=== PATIENT | female | born 1960 | race Caucasian/White ===

== ENCOUNTER 2019-03-20 14:28 | Inpatient (IN) ==
--- NOTE | 2019-03-20 15:33 | Emergency Department Note ---
Disposition Clinical Impression: Weakness Disposition: Admitted As Inpatient Condition: Fair Time of Disposition: 00:34 General Adult HPI - General Chief complaint: ED Abdominal Pain Stated complaint: Failure to thrive Time Seen by Provider: 03/20/19 15:14 Source: patient Limitations: no limitations - History of Present Illness Pain Scale: 7 - Related Data Home Medications Medication Instructions Recorded Confirmed Ondansetron HCl [Zofran] 8 mg PO Q6HR PRN 01/31/16 03/20/19 Ascorbic Acid [Vitamin C] 500 mg PO DAILY 12/21/18 12/21/18 Atorvastatin Calcium [Lipitor] 20 mg PO QPM 12/21/18 12/21/18 Budesonide/Formoterol 80/4.5 2 puff IH BID 12/21/18 03/20/19 [Symbicort 80/4.5] Calcium/Vit B12/FA/Pyridoxine 1 tab PO DAILY 12/21/18 03/20/19 [Folic Acid-Vit B6-Vit B12 Tab] Cholecalciferol (Vitamin D3) 2,000 unit PO DAILY 12/21/18 03/20/19 [Vitamin D3] Dicyclomine [Bentyl] 20 mg PO QID 12/21/18 12/21/18 Divalproex (12 HR) [Depakote (12 1,500 mg PO HS 12/21/18 03/20/19 HR)] Ferrous Sulfate 325 mg PO DAILY 12/21/18 03/20/19 Fluticasone Propionate Nasal 1 spray NS DAILY 12/21/18 03/20/19 [Flonase] Furosemide [Lasix] 20 mg PO DAILY 12/21/18 03/20/19 Gabapentin [Neurontin] 300 mg PO QAM 12/21/18 03/20/19 Gabapentin [Neurontin] 400 mg PO HS 12/21/18 03/20/19 Gemfibrozil 600 mg PO BID 12/21/18 03/20/19 Insulin LISPRO [Humalog Kwikpen 0 - 10 unit SQ TID 12/21/18 03/20/19 U-100] Linagliptin [Tradjenta] 5 mg PO DAILY 12/21/18 03/20/19 Metformin HCl 1,000 mg PO BID 12/21/18 03/20/19 Montelukast [Singulair] 10 mg PO DAILY 12/21/18 03/20/19 Pantoprazole Sodium 40 mg PO BID 12/21/18 03/20/19 Potassium Chloride [Klor-Con 10] 10 meq PO DAILY 12/21/18 03/20/19 Ropinirole HCl [Requip] 2 mg PO HS 12/21/18 03/20/19 Tramadol HCl [Ultram] 50 mg PO QID PRN 12/21/18 03/20/19 diazePAM [Valium] 5 mg PO TID 12/21/18 03/20/19 Allergies Allergy/AdvReac Type Severity Reaction Status Date / Time lorazepam [From Ativan] AdvReac Agitated Verified 12/21/18 09:21 Past Medical History - Past Medical History Medical history: Reports: CHF, COPD, diabetes, hypertension Surgical history: Reports: , orthopedic, other, other Psychiatric history: Reports: anxiety, bipolar, depression - Social History Smoking Status: Current every day smoker Smokeless Tobacco Status: No Alcohol use: Reports: none Drug use: Reports: none Physical Exam - General Limitations: no limitations General appearance: alert, in no apparent distress Course Vital Signs Temperature 97.1 F L 03/20/19 14:53 Pulse Rate 74 03/20/19 14:53 Respiratory Rate 18 03/20/19 14:53 Blood Pressure 100/69 03/20/19 14:53 O2 Sat by Pulse Oximetry 100 03/20/19 14:53 Temperature 97.5 F L 03/20/19 23:08 Pulse Rate 75 03/20/19 23:08 Respiratory Rate 16 03/20/19 23:08 Blood Pressure 110/70 03/20/19 23:08 O2 Sat by Pulse Oximetry 95 03/20/19 23:08 Oxygen Delivery Oxygen Delivery Room Air Medical Decision Making - Lab Data Result diagrams: 03/20/19 16:00 03/20/19 16:00 Lab Results 03/20/19 03/20/19 03/20/19 Range/Units 16:00 16:00 16:00 WBC 6.4 (4.3-11.1) K/mcL RBC 3.13 L (3.82-4.97) M/mcL Hgb 10.7 L (11.5-15.4) g/dL Hct 31.8 L (35.3-44.9) % MCV 101.6 H (83.0-100.0) fL MCH 34.2 H (28.0-33.3) pg MCHC 33.6 (31.6-35.5) g/dL RDW 14.2 (11.5-14.5) % Plt Count 222 (140-400) K/mcL MPV 10.9 (9.4-12.4) fL Reticulocyte # (0.05-0.10) M/mcL Immature Gran % 0.5 (0-4) % Seg Neutrophils % 57.7 % Lymphocytes % 30.8 % Monocytes % 10.3 % Eosinophils % 0.5 % Basophils % 0.2 % Neutrophils # 3.7 (1.6-8.9) K/mcL Lymphocytes # 2.0 (0.6-4.6) K/mcL Monocytes # 0.7 (0.0-1.3) K/mcL Eosinophils # 0.0 (0.0-0.6) K/mcL Basophils # 0.0 (0.0-0.2) K/mcL Smear Path Review Percent Retic (1.6-2.8) % Immature Retic Fraction (11.0-38.0) % Retic Hgb Equivalent (28.61-36.33) pg Sodium 133 L (136-145) mEq/L Potassium 3.7 (3.5-5.1) mEq/L Chloride 90 L (98-107) mEq/L Carbon Dioxide 30 H (23-29) mEq/L BUN 28 H (8-23) mg/dL Creatinine 1.08 (0.60-1.20) mg/dL Est GFR ( Amer) > 60 (> 60) Est GFR (Non-Af Amer) 52 L (> 60) BUN/Creatinine Ratio 26 (6-26) Glucose 109 H (70-105) mg/dL Est Mean Plasma Glucose mg/dl Hemoglobin A1c ( - 5.6) % Calculated Osmolality 282 (280-300) Lactic Acid 5.4 H* (0.5-2.2) mmol/L Calcium 9.1 (8.6-10.3) mg/dL Magnesium 1.5 L (1.6-2.6) mg/dL Total Bilirubin 0.3 (0.3-1.0) mg/dL AST 39 (13-39) Units/L ALT 22 (7-52) Units/L Alkaline Phosphatase 60 (34-104) Units/L Troponin I (< 0.04) ng/mL Serum Total Protein 6.2 L (6.4-8.9) g/dL Albumin 3.5 (3.5-5.7) g/dL Globulin 2.7 (2.4-3.5) g/dL Albumin/Globulin Ratio 1.3 (1.1-2.2) Urine Color (Yellow) Urine Clarity (Clear) Urine pH (5.0-8.0) pH Units Ur Specific [place] (1.010-1.025) Urine Protein (Neg-Trace) mg/dL Urine Glucose (UA) (Normal) mg/dL Urine Ketones (Negative) mg/dL Urine Blood (Negative) Urine Nitrite (Negative) Urine Bilirubin (Negative) Urine Urobilinogen (Normal) mg/dL Ur Leukocyte Esterase (Negative) Urine Microscopic RBC (0-3) per hpf Urine Microscopic WBC (0-3) per hpf Ur Squamous Epith Cells (None-Few) per lpf Urine Bacteria (None-Few) per hpf Hyaline Casts (None-Few) per lpf Valproic Acid (50-100) mcg/mL 03/20/19 03/20/19 03/20/19 Range/Units 16:00 16:00 16:10 WBC (4.3-11.1) K/mcL RBC (3.82-4.97) M/mcL Hgb (11.5-15.4) g/dL Hct (35.3-44.9) % MCV (83.0-100.0) fL MCH (28.0-33.3) pg MCHC (31.6-35.5) g/dL RDW (11.5-14.5) % Plt Count (140-400) K/mcL MPV (9.4-12.4) fL Reticulocyte # 0.07 (0.05-0.10) M/mcL Immature Gran % (0-4) % Seg Neutrophils % % Lymphocytes % % Monocytes % % Eosinophils % % Basophils % % Neutrophils # (1.6-8.9) K/mcL Lymphocytes # (0.6-4.6) K/mcL Monocytes # (0.0-1.3) K/mcL Eosinophils # (0.0-0.6) K/mcL Basophils # (0.0-0.2) K/mcL Smear Path Review See Below Percent Retic 2.3 (1.6-2.8) % Immature Retic Fraction 14.1 (11.0-38.0) % Retic Hgb Equivalent 37.9 H (28.61-36.33) pg Sodium (136-145) mEq/L Potassium (3.5-5.1) mEq/L Chloride (98-107) mEq/L Carbon Dioxide (23-29) mEq/L BUN (8-23) mg/dL Creatinine (0.60-1.20) mg/dL Est GFR ( Amer) (> 60) Est GFR (Non-Af Amer) (> 60) BUN/Creatinine Ratio (6-26) Glucose (70-105) mg/dL Est Mean Plasma Glucose mg/dl Hemoglobin A1c ( - 5.6) % Calculated Osmolality (280-300) Lactic Acid (0.5-2.2) mmol/L Calcium (8.6-10.3) mg/dL Magnesium (1.6-2.6) mg/dL Total Bilirubin (0.3-1.0) mg/dL AST (13-39) Units/L ALT (7-52) Units/L Alkaline Phosphatase (34-104) Units/L Troponin I < 0.03 (< 0.04) ng/mL Serum Total Protein (6.4-8.9) g/dL Albumin (3.5-5.7) g/dL Globulin (2.4-3.5) g/dL Albumin/Globulin Ratio (1.1-2.2) Urine Color (Yellow) Urine Clarity (Clear) Urine pH (5.0-8.0) pH Units Ur Specific [place] (1.010-1.025) Urine Protein (Neg-Trace) mg/dL Urine Glucose (UA) (Normal) mg/dL Urine Ketones (Negative) mg/dL Urine Blood (Negative) Urine Nitrite (Negative) Urine Bilirubin (Negative) Urine Urobilinogen (Normal) mg/dL Ur Leukocyte Esterase (Negative) Urine Microscopic RBC (0-3) per hpf Urine Microscopic WBC (0-3) per hpf Ur Squamous Epith Cells (None-Few) per lpf Urine Bacteria (None-Few) per hpf Hyaline Casts (None-Few) per lpf Valproic Acid 41 L (50-100) mcg/mL 03/20/19 03/20/19 03/20/19 Range/Units 16:10 17:11 18:42 WBC (4.3-11.1) K/mcL RBC (3.82-4.97) M/mcL Hgb (11.5-15.4) g/dL Hct (35.3-44.9) % MCV (83.0-100.0) fL MCH (28.0-33.3) pg MCHC (31.6-35.5) g/dL RDW (11.5-14.5) % Plt Count (140-400) K/mcL MPV (9.4-12.4) fL Reticulocyte # (0.05-0.10) M/mcL Immature Gran % (0-4) % Seg Neutrophils % % Lymphocytes % % Monocytes % % Eosinophils % % Basophils % % Neutrophils # (1.6-8.9) K/mcL Lymphocytes # (0.6-4.6) K/mcL Monocytes # (0.0-1.3) K/mcL Eosinophils # (0.0-0.6) K/mcL Basophils # (0.0-0.2) K/mcL Smear Path Review Percent Retic (1.6-2.8) % Immature Retic Fraction (11.0-38.0) % Retic Hgb Equivalent (28.61-36.33) pg Sodium (136-145) mEq/L Potassium (3.5-5.1) mEq/L Chloride (98-107) mEq/L Carbon Dioxide (23-29) mEq/L BUN (8-23) mg/dL Creatinine (0.60-1.20) mg/dL Est GFR ( Amer) (> 60) Est GFR (Non-Af Amer) (> 60) BUN/Creatinine Ratio (6-26) Glucose (70-105) mg/dL Est Mean Plasma Glucose 108 mg/dl Hemoglobin A1c 5.4 ( - 5.6) % Calculated Osmolality (280-300) Lactic Acid 4.0 H* (0.5-2.2) mmol/L Calcium (8.6-10.3) mg/dL Magnesium (1.6-2.6) mg/dL Total Bilirubin (0.3-1.0) mg/dL AST (13-39) Units/L ALT (7-52) Units/L Alkaline Phosphatase (34-104) Units/L Troponin I (< 0.04) ng/mL Serum Total Protein (6.4-8.9) g/dL Albumin (3.5-5.7) g/dL Globulin (2.4-3.5) g/dL Albumin/Globulin Ratio (1.1-2.2) Urine Color Yellow (Yellow) Urine Clarity Clear (Clear) Urine pH 6.0 (5.0-8.0) pH Units Ur Specific [place] 1.013 (1.010-1.025) Urine Protein Negative (Neg-Trace) mg/dL Urine Glucose (UA) Normal (Normal) mg/dL Urine Ketones Negative (Negative) mg/dL Urine Blood Negative (Negative) Urine Nitrite Negative (Negative) Urine Bilirubin Negative (Negative) Urine Urobilinogen Normal (Normal) mg/dL Ur Leukocyte Esterase Small H (Negative) Urine Microscopic RBC 0-3 (0-3) per hpf Urine Microscopic WBC 5-15 H (0-3) per hpf Ur Squamous Epith Cells Many H (None-Few) per lpf Urine Bacteria Few (None-Few) per hpf Hyaline Casts None Seen (None-Few) per lpf Valproic Acid (50-100) mcg/mL Attestation Statement - Attestation Attestation: I reviewed the residents documentation and agree with the residents assessment and plan of care. I have personally had face to face time with the patient. (Brief History, Brief Exam, and MDM) I personally supervised and was present for the resendez/critical portions of the following procedures completed by the resident: (add procedures performed here). [id number] time provided Patient arrives in the care of her family member with decreased oral intake. Patient is somewhat thin and frail appearing on exam. I attest to supervising the resident physician's interpretation of the ECG.
[2019-03-20] MEDS ORDERED: Ipratropium/Albuterol Neb 3 ML IH ONE (15:42)
[2019-03-20] MEDS ORDERED: 0.9 % Sodium Chloride 1,000 ML IVC ONE (15:43)
--- NOTE | 2019-03-20 16:04 | Emergency Department Note ---
Disposition Clinical Impression: Weakness Disposition: Admitted As Inpatient Condition: Fair Forms: ED Satisfaction Letter, Work/School Release Time of Disposition: 18:00 Abdominal Pain HPI - General Chief Complaint: ED Abdominal Pain Stated Complaint: Failure to thrive Time Seen by Provider: 03/20/19 15:14 Source: patient, family Mode of arrival: ambulatory Limitations: no limitations Nursing Notes Reviewed: Yes Vital Signs Reviewed: Yes - History of Present Illness HPI Narrative: 59 yo woman brought to ED 03/20/19 by daughter from GI appointment for evaluation of acute diarrhea, decreased PO intake, weakness, and ongoing weight loss. Patient says she tries to eat "but just can't, nothing is right." Weight loss estimated at 11 lbs over past month. Yesterday she was also found on the floor by her home nurse; patient said she did hit her head, but is unable to verbalize how she felt at the time of the fall or why she fell. She has a history of falls but often refuses to seek medical care afterwards. Daughter has photo of patient with black eye, cheekbone bruising on the right side of face from another fall. She endorses 7/10 abdominal pain and SOB, denies CP. Patient recently finished course of Keflex following foot surgery "to remove a bone", per daughter, and has an unresolved wound on the ball of her left foot. Patient states it hurts to put weight on that foot. Daughter believes patient has been able to take her medications. PMH significant for aphasisa 2/2 possible stroke, DM, BPD, schizophrenia. She takes Depakote. Patient is not on anticoagulation. Allergies include ativan. Social history significant for heavy smoking. She was on O2 at home, but hasn't used it for awhile. She does take breathing treatments at home. Pain Scale: 7 - Related Data Home Medications Medication Instructions Recorded Confirmed Ondansetron HCl [Zofran] 8 mg PO TID PRN 01/31/16 12/21/18 Ascorbic Acid [Vitamin C] 500 mg PO DAILY 12/21/18 12/21/18 Atorvastatin Calcium [Lipitor] 20 mg PO QPM 12/21/18 12/21/18 Budesonide/Formoterol 80/4.5 2 puff IH BID 12/21/18 12/21/18 [Symbicort 80/4.5] Calcium/Vit B12/FA/Pyridoxine 1 tab PO DAILY 12/21/18 12/21/18 [Folic Acid-Vit B6-Vit B12 Tab] Cholecalciferol (Vitamin D3) 2,000 unit PO DAILY 12/21/18 12/21/18 [Vitamin D3] Dicyclomine [Bentyl] 20 mg PO QID 12/21/18 12/21/18 Divalproex (12 HR) [Depakote (12 1,500 mg PO HS 12/21/18 12/21/18 HR)] Ferrous Sulfate 325 mg PO DAILY 12/21/18 12/21/18 Fluticasone Propionate Nasal 1 spray NS DAILY 12/21/18 12/21/18 [Flonase] Furosemide [Lasix] 20 mg PO DAILY 12/21/18 12/21/18 Gabapentin [Neurontin] 300 mg PO QAM 12/21/18 12/21/18 Gabapentin [Neurontin] 400 mg PO 2000 12/21/18 12/21/18 Gemfibrozil 600 mg PO BID 12/21/18 12/21/18 Insulin LISPRO [Humalog Kwikpen 0 - 10 unit SQ TID 12/21/18 12/21/18 U-100] Linagliptin [Tradjenta] 5 mg PO DAILY 12/21/18 12/21/18 Metformin HCl 1,000 mg PO BID 12/21/18 12/21/18 Montelukast [Singulair] 10 mg PO DAILY 12/21/18 12/21/18 Pantoprazole Sodium 40 mg PO BID 12/21/18 12/21/18 Potassium Chloride [Klor-Con 10] 10 meq PO DAILY 12/21/18 12/21/18 Ropinirole HCl [Requip] 2 mg PO HS 12/21/18 12/21/18 Tramadol HCl [Ultram] 50 mg PO QID PRN 12/21/18 12/21/18 diazePAM [Valium] 5 mg PO TID PRN 12/21/18 12/21/18 Allergies Allergy/AdvReac Type Severity Reaction Status Date / Time lorazepam [From Ativan] AdvReac Agitated Verified 12/21/18 09:21 All systems ED: reviewed and negative except as stated. Respiratory: Reports: dyspnea Gastrointestinal: Reports: abdominal pain, diarrhea Musculoskeletal: Reports: other (Pain and swelling in left foot) Integumentary: Reports: lesions (Wound, ball of left foot) Abdominal Pain PMH - Past Medical History Medical history: Reports: CHF, COPD, diabetes, hypertension Female Surgical History: Reports: , cholecystectomy, orthopedic, other Psychiatric history: Reports: anxiety, bipolar, depression - Social History Smoking status: Current every day smoker Alcohol use: Reports: none Drug use: Reports: none Physical Exam PE Gen: AOx3, NAD HEENT: No lymphadenopathy, no erythema, no edema. Pupils equal and reactive. Cardio: Regular rate and rhythm, no murmur, no peripheral edema, good perfusion to all extremities, no cyanosis Resp: +coarse breath sounds, wheezing on expiration, equal BS bilaterally GI: +mild distention, +mild tenderness to palpation of abdomen diffusely. No ecchymoses, no rash. : +suprapubic tenderness and distention on palpation MSK: +erythema, edema extending along left castaneda and foot with tenderness to palpation; +wound approximately 1" in diameter w/ serous discharge under 2nd metatarsal; Normal ROM Neuro: CNI-XII intact, strength WNL, decreased sensation BLE Psych: Appropriate affect - General Limitations: no limitations General appearance: alert, in no apparent distress Course Course Narrative: Temp 97.1, remaining VS WNL. Patient given duoneb to ease breathing and 25mcg fentanyl for pain relief. Concern for C. diff colitis given recent surgery and antibiotics; also sepsis, UTI, TIA, malignancy. Ordered CBC, CMP, UA, EKG, troponin, lactic acid, Mg, valproic acid, CT abd/pelvis, CT head to initiate workup. - Reevaluation(s) Reevaluation #1: Patient asleep, VS stable and WNL. Time: 18:15 Vital Signs Temperature 97.1 F L 03/20/19 14:53 Pulse Rate 74 03/20/19 14:53 Respiratory Rate 18 03/20/19 14:53 Blood Pressure 100/69 03/20/19 14:53 O2 Sat by Pulse Oximetry 100 03/20/19 14:53 Temperature 97.1 F L 03/20/19 14:53 Pulse Rate 67 03/20/19 19:07 Respiratory Rate 18 03/20/19 16:02 Blood Pressure 115/72 03/20/19 19:07 O2 Sat by Pulse Oximetry 96 03/20/19 19:07 Oxygen Delivery Oxygen Delivery Room Air Abdominal Pain - MDM Narrative Medical decision making narrative: CBC, UA, CT with no findings suggested of acute emergent process such as sepsis, bowel obstruction or toxic megacolon. Labs consistent with dehydration, lack of nutrition. Hospitalist requested repeat lactic acid, given initial elevated value with sample taken in close proximity to patient receiving Duoneb treatment. Repeat lactate still high at 4; patient was unable to walk on trial of ambulation. Social work recommends admission. - Medical Records Medical records reviewed: Yes I reviewed the patient's medical records. - Lab Data Lab results reviewed: Yes I reviewed the patient's lab results. Result diagrams: 03/20/19 16:00 03/20/19 16:00 Lab Results 03/20/19 03/20/19 03/20/19 Range/Units 16:00 16:00 16:00 WBC 6.4 (4.3-11.1) K/mcL RBC 3.13 L (3.82-4.97) M/mcL Hgb 10.7 L (11.5-15.4) g/dL Hct 31.8 L (35.3-44.9) % MCV 101.6 H (83.0-100.0) fL MCH 34.2 H (28.0-33.3) pg MCHC 33.6 (31.6-35.5) g/dL RDW 14.2 (11.5-14.5) % Plt Count 222 (140-400) K/mcL MPV 10.9 (9.4-12.4) fL Immature Gran % 0.5 (0-4) % Seg Neutrophils % 57.7 % Lymphocytes % 30.8 % Monocytes % 10.3 % Eosinophils % 0.5 % Basophils % 0.2 % Neutrophils # 3.7 (1.6-8.9) K/mcL Lymphocytes # 2.0 (0.6-4.6) K/mcL Monocytes # 0.7 (0.0-1.3) K/mcL Eosinophils # 0.0 (0.0-0.6) K/mcL Basophils # 0.0 (0.0-0.2) K/mcL Sodium 133 L (136-145) mEq/L Potassium 3.7 (3.5-5.1) mEq/L Chloride 90 L (98-107) mEq/L Carbon Dioxide 30 H (23-29) mEq/L BUN 28 H (8-23) mg/dL Creatinine 1.08 (0.60-1.20) mg/dL Est GFR ( Amer) > 60 (> 60) Est GFR (Non-Af Amer) 52 L (> 60) BUN/Creatinine Ratio 26 (6-26) Glucose 109 H (70-105) mg/dL Calculated Osmolality 282 (280-300) Lactic Acid 5.4 H* (0.5-2.2) mmol/L Calcium 9.1 (8.6-10.3) mg/dL Magnesium 1.5 L (1.6-2.6) mg/dL Total Bilirubin 0.3 (0.3-1.0) mg/dL AST 39 (13-39) Units/L ALT 22 (7-52) Units/L Alkaline Phosphatase 60 (34-104) Units/L Troponin I (< 0.04) ng/mL Serum Total Protein 6.2 L (6.4-8.9) g/dL Albumin 3.5 (3.5-5.7) g/dL Globulin 2.7 (2.4-3.5) g/dL Albumin/Globulin Ratio 1.3 (1.1-2.2) Urine Color (Yellow) Urine Clarity (Clear) Urine pH (5.0-8.0) pH Units Ur Specific [place] (1.010-1.025) Urine Protein (Neg-Trace) mg/dL Urine Glucose (UA) (Normal) mg/dL Urine Ketones (Negative) mg/dL Urine Blood (Negative) Urine Nitrite (Negative) Urine Bilirubin (Negative) Urine Urobilinogen (Normal) mg/dL Ur Leukocyte Esterase (Negative) Urine Microscopic RBC (0-3) per hpf Urine Microscopic WBC (0-3) per hpf Ur Squamous Epith Cells (None-Few) per lpf Urine Bacteria (None-Few) per hpf Hyaline Casts (None-Few) per lpf Valproic Acid (50-100) mcg/mL 03/20/19 03/20/19 03/20/19 Range/Units 16:00 16:00 17:11 WBC (4.3-11.1) K/mcL RBC (3.82-4.97) M/mcL Hgb (11.5-15.4) g/dL Hct (35.3-44.9) % MCV (83.0-100.0) fL MCH (28.0-33.3) pg MCHC (31.6-35.5) g/dL RDW (11.5-14.5) % Plt Count (140-400) K/mcL MPV (9.4-12.4) fL Immature Gran % (0-4) % Seg Neutrophils % % Lymphocytes % % Monocytes % % Eosinophils % % Basophils % % Neutrophils # (1.6-8.9) K/mcL Lymphocytes # (0.6-4.6) K/mcL Monocytes # (0.0-1.3) K/mcL Eosinophils # (0.0-0.6) K/mcL Basophils # (0.0-0.2) K/mcL Sodium (136-145) mEq/L Potassium (3.5-5.1) mEq/L Chloride (98-107) mEq/L Carbon Dioxide (23-29) mEq/L BUN (8-23) mg/dL Creatinine (0.60-1.20) mg/dL Est GFR ( Amer) (> 60) Est GFR (Non-Af Amer) (> 60) BUN/Creatinine Ratio (6-26) Glucose (70-105) mg/dL Calculated Osmolality (280-300) Lactic Acid (0.5-2.2) mmol/L Calcium (8.6-10.3) mg/dL Magnesium (1.6-2.6) mg/dL Total Bilirubin (0.3-1.0) mg/dL AST (13-39) Units/L ALT (7-52) Units/L Alkaline Phosphatase (34-104) Units/L Troponin I < 0.03 (< 0.04) ng/mL Serum Total Protein (6.4-8.9) g/dL Albumin (3.5-5.7) g/dL Globulin (2.4-3.5) g/dL Albumin/Globulin Ratio (1.1-2.2) Urine Color Yellow (Yellow) Urine Clarity Clear (Clear) Urine pH 6.0 (5.0-8.0) pH Units Ur Specific [place] 1.013 (1.010-1.025) Urine Protein Negative (Neg-Trace) mg/dL Urine Glucose (UA) Normal (Normal) mg/dL Urine Ketones Negative (Negative) mg/dL Urine Blood Negative (Negative) Urine Nitrite Negative (Negative) Urine Bilirubin Negative (Negative) Urine Urobilinogen Normal (Normal) mg/dL Ur Leukocyte Esterase Small H (Negative) Urine Microscopic RBC 0-3 (0-3) per hpf Urine Microscopic WBC 5-15 H (0-3) per hpf Ur Squamous Epith Cells Many H (None-Few) per lpf Urine Bacteria Few (None-Few) per hpf Hyaline Casts None Seen (None-Few) per lpf Valproic Acid 41 L (50-100) mcg/mL 03/20/19 Range/Units 18:42 WBC (4.3-11.1) K/mcL RBC (3.82-4.97) M/mcL Hgb (11.5-15.4) g/dL Hct (35.3-44.9) % MCV (83.0-100.0) fL MCH (28.0-33.3) pg MCHC (31.6-35.5) g/dL RDW (11.5-14.5) % Plt Count (140-400) K/mcL MPV (9.4-12.4) fL Immature Gran % (0-4) % Seg Neutrophils % % Lymphocytes % % Monocytes % % Eosinophils % % Basophils % % Neutrophils # (1.6-8.9) K/mcL Lymphocytes # (0.6-4.6) K/mcL Monocytes # (0.0-1.3) K/mcL Eosinophils # (0.0-0.6) K/mcL Basophils # (0.0-0.2) K/mcL Sodium (136-145) mEq/L Potassium (3.5-5.1) mEq/L Chloride (98-107) mEq/L Carbon Dioxide (23-29) mEq/L BUN (8-23) mg/dL Creatinine (0.60-1.20) mg/dL Est GFR ( Amer) (> 60) Est GFR (Non-Af Amer) (> 60) BUN/Creatinine Ratio (6-26) Glucose (70-105) mg/dL Calculated Osmolality (280-300) Lactic Acid 4.0 H* (0.5-2.2) mmol/L Calcium (8.6-10.3) mg/dL Magnesium (1.6-2.6) mg/dL Total Bilirubin (0.3-1.0) mg/dL AST (13-39) Units/L ALT (7-52) Units/L Alkaline Phosphatase (34-104) Units/L Troponin I (< 0.04) ng/mL Serum Total Protein (6.4-8.9) g/dL Albumin (3.5-5.7) g/dL Globulin (2.4-3.5) g/dL Albumin/Globulin Ratio (1.1-2.2) Urine Color (Yellow) Urine Clarity (Clear) Urine pH (5.0-8.0) pH Units Ur Specific [place] (1.010-1.025) Urine Protein (Neg-Trace) mg/dL Urine Glucose (UA) (Normal) mg/dL Urine Ketones (Negative) mg/dL Urine Blood (Negative) Urine Nitrite (Negative) Urine Bilirubin (Negative) Urine Urobilinogen (Normal) mg/dL Ur Leukocyte Esterase (Negative) Urine Microscopic RBC (0-3) per hpf Urine Microscopic WBC (0-3) per hpf Ur Squamous Epith Cells (None-Few) per lpf Urine Bacteria (None-Few) per hpf Hyaline Casts (None-Few) per lpf Valproic Acid (50-100) mcg/mL - Radiology Data Radiology results reviewed: Yes I reviewed the patient's radiology results. Abdomen/Pelvis CT 03/20/19 15:43 IMPRESSION: Moderate size hiatal hernia with moderate internal soft tissue density. While this may be due to hiatal hernia with collapse, the possibility of a mucosal lesion of the stomach or esophagus within the hernia should be considered. No evidence of colitis on noncontrast imaging, but with moderate stool throughout the colon. D/ / Toan Castillo MD / Toan Castillo MD Interpreting Provider: Toan Castillo MD Head CT 03/20/19 15:43 IMPRESSION: No acute intracranial abnormality. Mild atrophy. D/ / Toan Castillo MD / Toan Castillo MD Interpreting Provider: Toan Castillo MD - EKG Data EKG attestation: Yes I reviewed and interpreted this EKG. EKG shows normal: sinus rhythm Rate: normal Rhythm: NSR Darling/QRS: normal When compared to previous EKG there are: no significant changes (12/14/18 EKG) Interpretation: no acute changes, normal EKG
[2019-03-20] MEDS ORDERED: *HR* FentaNYL (PF) 100 MCG/2 ML VIAL IVP ONE (16:07)
[2019-03-20 16:20] LABS: Basophils % 0.2 %; Eosinophils % 0.5 %; Hematocrit 31.8 % (35.3-44.9); Hemoglobin 10.7 g/dL (11.5-15.4); Immature Granulocytes % 0.5 % (0-4); Lymphocytes % 30.8 %; Mean Corpuscular HGB Conc 33.6 g/dL (31.6-35.5); Mean Corpuscular Hemoglobin 34.2 pg (28.0-33.3); Mean Corpuscular Volume 101.6 fL (83.0-100.0); Mean Platelet Volume 10.9 fL (9.4-12.4); Monocytes # 0.7 K/mcL (0.0-1.3); Monocytes % 10.3 %; Neutrophils # 3.7 K/mcL (1.6-8.9); Platelet Count 222 K/mcL (140-400); Red Blood Count 3.13 M/mcL (3.82-4.97); Red Cell Distribution Width 14.2 % (11.5-14.5); Segmented Neutrophils % 57.7 %; White Blood Count 6.4 K/mcL (4.3-11.1)
[2019-03-20 16:38] LABS: Alanine Aminotransferase 22 Units/L (7-52); Albumin 3.5 g/dL (3.5-5.7); Albumin/Globulin Ratio 1.3 (1.1-2.2); Alkaline Phosphatase 60 Units/L (34-104); Aspartate Amino Transferase 39 Units/L (13-39); BUN/Creatinine Ratio 26 (6-26); Bilirubin,Total 0.3 mg/dL (0.3-1.0); Blood Urea Nitrogen 28 mg/dL (8-23); Calcium 9.1 mg/dL (8.6-10.3); Carbon Dioxide 30 mEq/L (23-29); Chloride 90 mEq/L (98-107); Globulin 2.7 g/dL (2.4-3.5); Glucose 109 mg/dL (70-105); Magnesium 1.5 mg/dL (1.6-2.6); Osmolality,Calculated 282 (280-300); Potassium 3.7 mEq/L (3.5-5.1); Sodium 133 mEq/L (136-145); Total Protein 6.2 g/dL (6.4-8.9); eGFR For African Americans > 60 (> 60); eGFR For Non-African Americans 52 (> 60)
[2019-03-20 17:38] LABS: Bilirubin,Urine Negative (Negative); Blood,Urine Negative (Negative); Clarity,Urine Clear (Clear); Color,Urine Yellow (Yellow); Glucose,Urine (UA) Normal (Normal); Ketones,Urine Negative (Negative); Leukocyte Esterase,Urine Small (Negative); Nitrite,Urine Negative (Negative); Protein,Urine Negative (Neg-Trace); Specific Gravity,Urine 1.013 (1.010-1.025); Urobilinogen,Urine Normal (Normal)
[2019-03-20 17:42] LABS: Bacteria,Urine Few per hpf (None-Few); Hyaline Casts,Urine None Seen per lpf (None-Few); Squamous Epithelial Cell,Urine Many per lpf (None-Few)
[2019-03-20 18:02] LABS: RBC,Urine 0-3 per hpf (0-3)
[2019-03-20] MEDS ORDERED: Naloxone 0.4 MG/ML INJ IVP PRN (19:46)
[2019-03-20] MEDS ORDERED: Ondansetron ODT 4 MG TAB.RAPDIS SL PRN (19:46)
[2019-03-20] MEDS ORDERED: D5% in Water 1,000 ML IVC PRN (20:27)
[2019-03-20] MEDS ORDERED: *HR* Dextrose 50 % in Water (Syg) 50 ML SYRINGE IVP PRN (20:27)
[2019-03-20] MEDS ORDERED: diazePAM 5 MG TABLET PO PRN (20:27)
[2019-03-20] MEDS ORDERED: Dextrose Gel 15 GM/37.5 ML TUBE PO PRN ×2 (20:27)
[2019-03-20] MEDS ORDERED: 0.9 % Sodium Chloride 1,000 ML IVC SCH ×2 (20:45→23:15)
--- NOTE | 2019-03-20 20:45 | Internal Med History&Physical ---
Date of Encounter: 03/20/19 Time of Encounter: 20:39 Internal Medicine - H&P: HPI Chief complaint: diarrhea and weightloss Admitted From: Home History of present illness: Ms. Tam is a 59 year old pleasant frail functional female presented to the ED for diarrhea. Face to face encounter occurred at 8:00 p.m. during my encounter the patient was sleepy and not very compliant with answering questions or alert and oriented. History was also obtained with the help of talking to the nurse via the phone and daughter present at bedside. Patient has been experiencing diarrhea since 11/2018 progressing worsening and despite being an Imodium. patient continues to have 5-6 bowel movements a day liquid and texture brown nonbloody worsening with associated with over 11 pounds of weight loss the past month. Patient admits of intact appetite. Nurse reported the patient has only been eating hot dogs at home and refused to eat and other meals otherwise patient is very compliant with her medication. Patient denied any NSAID intake. Patient admits to having 2 rounds of antibiotics(1 his doxycycline and the other is unknown) due to left leg ulcer that has been followed weekly by press shop supervisor Dr. Fierro. Patient lives at home using a cane functions independently with home nurse assistance few times a week. Patient continues to smoke, denies drinking or drugs. Patient admits of family history of emphysema from father's side and cardiac disease, with stent mother. No family history of gastric, colon cancer, ovarian cancer or breast cancer. Patient denied having any abdominal surgery previously except for cholecystectomy many years back with no sx of diarrhea after. Patient otherwise denies fever, chills, nausea, vomiting, night sweats, chest pain, shortness of breath. Patient's past medical, surgical, family and social history was reviewed. Patient does have history of seizure disorder and catatonic psychiatric disorder with many years of intensive workup was put on loxapine, Valium, valproic acid. Reported if patient does not take will have encephalopathic, seizure and catatonic state. Past Med Surg Social Fam HX - Past Medical History Medical history: CHF, COPD, diabetes, hypertension Additional medical history: RLS Psychiatric history: anxiety, bipolar, depression - Past Surgical History Surgical History: , orthopedic, other, other Additional surgical history: gallbladder. scar tissue removed ABD area. rene in right leg. left foot surgery - Social History Smoking Status: Current every day smoker Smokeless Tobacco Status: No Alcohol use: none Drug use: none - Family History Mother Hx Family Cardiac Disorders: Yes (Pacer/Defib, CHF) Hx Family Respiratory Disorders: No Hx Family Cancer: No Hx Family GI Disorders: Yes (Hiatal hernia) Hx Family Endocrine Disorder: No Hx Family Neuromuscular Disorders: No Hx Family Neurologic Disorders: No Hx Family HEENT Disorders: No Hx Family Autoimmune Disorders: No Brother Hx Family Cardiac Disorders: No Hx Family Respiratory Disorders: No Hx Family Cancer: No Hx Family GI Disorders: No Hx Family Endocrine Disorder: Yes (DM) Hx Family Neuromuscular Disorders: No Hx Family Neurologic Disorders: No Hx Family HEENT Disorders: No Hx Family Autoimmune Disorders: No Sister Hx Family Cardiac Disorders: No Hx Family Respiratory Disorders: Yes (COPD) Hx Family Cancer: No Hx Family GI Disorders: Yes (Hernia, Colostomy) Hx Family Endocrine Disorder: Yes (DM) Hx Family Neuromuscular Disorders: No Hx Family Neurologic Disorders: No Hx Family HEENT Disorders: No Hx Family Autoimmune Disorders: No Internal Medicine - H&P: Meds Ondansetron HCl [Zofran] 8 mg PO TID PRN 01/31/16 [History] Ascorbic Acid [Vitamin C] 500 mg PO DAILY 12/21/18 [History] Atorvastatin Calcium [Lipitor] 20 mg PO QPM 12/21/18 [History] Budesonide/Formoterol 80/4.5 [Symbicort 80/4.5] 2 puff IH BID 12/21/18 [History] Calcium/Vit B12/FA/Pyridoxine [Folic Acid-Vit B6-Vit B12 Tab] 1 tab PO DAILY 12/21/18 [History] Cholecalciferol (Vitamin D3) [Vitamin D3] 2,000 unit PO DAILY 12/21/18 [History] Dicyclomine [Bentyl] 20 mg PO QID 12/21/18 [History] Divalproex (12 HR) [Depakote (12 HR)] 1,500 mg PO HS 12/21/18 [History] Ferrous Sulfate 325 mg PO DAILY 12/21/18 [History] Fluticasone Propionate Nasal [Flonase] 1 spray NS DAILY 12/21/18 [History] Furosemide [Lasix] 20 mg PO DAILY 12/21/18 [History] Gabapentin [Neurontin] 300 mg PO QAM 12/21/18 [History] Gabapentin [Neurontin] 400 mg PO 199912/21/18 [History] Gemfibrozil 600 mg PO BID 12/21/18 [History] Insulin LISPRO [Humalog Kwikpen U-100] 0 - 10 unit SQ TID 12/21/18 [History] Linagliptin [Tradjenta] 5 mg PO DAILY 12/21/18 [History] Metformin HCl 1,000 mg PO BID 12/21/18 [History] Montelukast [Singulair] 10 mg PO DAILY 12/21/18 [History] Pantoprazole Sodium 40 mg PO BID 12/21/18 [History] Potassium Chloride [Klor-Con 10] 10 meq PO DAILY 12/21/18 [History] Ropinirole HCl [Requip] 2 mg PO HS 12/21/18 [History] Tramadol HCl [Ultram] 50 mg PO QID PRN 12/21/18 [History] diazePAM [Valium] 5 mg PO TID PRN 12/21/18 [History] Allergy/AdvReac Type Severity Reaction Status Date / Time lorazepam [From Ativan] AdvReac Agitated Verified 12/21/18 09:21 All Systems PM: A 10-system review of systems was performed and is negative for pertinent findings except as documented above in the HPI. Review of systems: General: + unintentional weightloss, No fever,No night sweats. Head: No pain, No injury, No ulcers. Ears: No discharge, No pain. Eyes: No earache, No discharge Mouth and Throat: No ulcers, No pain. Nose and Sinus: No discharge, No congestion Respiratory: No cough, No sputum production, No dyspnea Cardiovascular: No chest pain, No palpitations. Gastrointestinal: No nausea, No vomiting. + abdominal tenderness. Urinary Tract: No dysuria, No discharge. MSK: No new/worsening joint pain or new/worsening muscle ache. +back pain Endocrine: No cold intolerance, No polyuria Psychological: No suicidal, No homocidal ideation. - Constitutional Vitals: Temp Pulse Resp BP Pulse Ox 97.1 F L 67 18 115/72 96 03/20/19 14:53 03/20/19 19:07 03/20/19 16:02 03/20/19 19:07 03/20/19 19:07 Exam: General Appearance: Appearing as age, severely malnourished in mild acute di stress. Head: Atraumatic normocephalic. temporal muscle wasting Skin: Normal texture, delayed skin turgor. Eyes: Conjunctivae pale with no erythema, drainage, or ulcers. Anicteric. Neck: No Lymphadenopathy in the anterior/posterior cervical chain. No thyromegaly, masses or ulcers. Trachea midline. Heart: RRR, no murmurs. Capillary refill 3 seconds Lungs: No accessory muscle usage, lungs clear to auscultation bilaterally, no crackles. Extremities: No pitting edema, clubbing, cyanosis. left deep leg ulcer with no erythema, drainage. nontender to palpate. Abdomen: Non-distended, normoactive bowel sounds. minimal lower quadrant tenderness wiht no guarding. no hepatomegally. Neuro: AOx3 with no new focal deficits. MSK: Strength 5/5 Upper extremity equal bilaterally. Strength 5/5 Lower extrem ity equal bilaterally Internal Med - H&P Results - Labs CBC & Chem 7: 03/20/19 16:00 03/20/19 16:00 Labs: Short CBC 03/20/19 Range/Units 16:00 WBC 6.4 (4.3-11.1) K/mcL Hgb 10.7 L (11.5-15.4) g/dL Hct 31.8 L (35.3-44.9) % Plt Count 222 (140-400) K/mcL Neutrophils # 3.7 (1.6-8.9) K/mcL BMP 03/20/19 16:00 Sodium 133 L Potassium 3.7 Chloride 90 L Carbon Dioxide 30 H BUN 28 H Creatinine 1.08 Glucose 109 H Calcium 9.1 Cardiac Enzymes 03/20/19 Range/Units 16:00 Troponin I < 0.03 (< 0.04) ng/mL Liver Function 03/20/19 Range/Units 16:00 Total Bilirubin 0.3 (0.3-1.0) mg/dL AST 39 (13-39) Units/L ALT 22 (7-52) Units/L Alkaline Phosphatase 60 (34-104) Units/L Albumin 3.5 (3.5-5.7) g/dL Urine 03/20/19 Range/Units 17:11 Urine Color Yellow (Yellow) Urine Clarity Clear (Clear) Urine pH 6.0 (5.0-8.0) pH Units Ur Specific [place] 1.013 (1.010-1.025) Urine Protein Negative (Neg-Trace) mg/dL Urine Glucose (UA) Normal (Normal) mg/dL - Impressions ITS Impressions Abdomen/Pelvis CT 03/20/19 15:43 IMPRESSION: Moderate size hiatal hernia with moderate internal soft tissue density. While this may be due to hiatal hernia with collapse, the possibility of a mucosal lesion of the stomach or esophagus within the hernia should be considered. No evidence of colitis on noncontrast imaging, but with moderate stool throughout the colon. D/ / Toan Castillo MD / Toan Castillo MD Interpreting Provider: Toan Castillo MD Head CT 03/20/19 15:43 IMPRESSION: No acute intracranial abnormality. Mild atrophy. D/ / Toan Castillo MD / Toan Castillo MD Interpreting Provider: Toan Castillo MD - Summary of Assessment and Plan Summary of Assessment and Plan: 1.Acute on chronic worsening diarrhea, Etiology unclear. Reported-2 rounds of antibiotic taken(one is doxy and the second questionable levaquin?). No NSAID intake Unresponsive despite Imodium at home. No abdomenal surgery(except cholecystectomy years ago) No hx of colonoscopy. Patient continues to be medically stable. Patient nothing by mouth after midnight with GI consultation. IVF, and electrolyte replacement 2. Macrocytic anemia: Likely secondary to malnutrition due to poor diet concern for malabsorption due to patient being on oral supplementation. B12: Folate ordered. Iron panel was ordered due to history of iron def anemia Reticulocyte count and peripheral smear. Elevated BUN with no evidence of bleeding. 3. Hypovolemic hyponatremia: IVF and continue to monitor. 4. Lactic acidosis, Failure to one depletion. Continue to trend with IVF. No source of bleeding at this time. Other chronic medical problems: Seizure disorder: We started home med History of psychiatric catatonia: Risperdal med Type 2 diabetes: Held metformin, ISS History of COPD with current smoking: Nicotine patch and did have ordered. remote hx of CHF/palpitation: restarted home med. Held lasix. - Time Spent With Patient Total time spent is greater than 50 minutes 50% in coordination of care (as docu mented) at patient's floor/unit and/or counseling patient: Greater than 35 minutes
[2019-03-20 21:06] LABS: Immature Reticulocyte % 14.1 % (11.0-38.0); Retculocyte # 0.07 M/mcL (0.05-0.10); Reticulocyte % 2.3 % (1.6-2.8)
[2019-03-20 21:12] LABS: Estimated Average Glucose 108 mg/dl
[2019-03-20] MEDS: Divalproex (24 HR) 500 MG TABLET PO SCH (21:47)
[2019-03-20] MEDS: Metoprolol XL (24 HR) Succ 25 MG TAB.ER.24H PO SCH (21:47)
[2019-03-20] MEDS: OLANZapine 5 MG TAB.RAPDIS PO SCH (21:47)
[2019-03-20] MEDS: rOPINIRole 1 MG TABLET PO SCH (21:47)
[2019-03-20] MEDS: Gabapentin 300 MG CAPSULE PO SCH (21:47)
[2019-03-20] MEDS: Nicotine 21 MG PATCH.TD24 TD SCH (21:48)
[2019-03-20 23:08] LABS: % Iron Saturation 12 % (15-50); Iron 44 mcg/dL (50-170); Transferrin 254 mg/dL (203-362)
[2019-03-20 23:25] LABS: Ferritin 169 ng/mL (10-120)
[2019-03-20 23:30] LABS: Folate 18.5 ng/mL (3.0-16.0)
[2019-03-21 01:53] LABS: Alanine Aminotransferase 19 Units/L (7-52); Albumin 3.1 g/dL (3.5-5.7); Albumin/Globulin Ratio 1.3 (1.1-2.2); Alkaline Phosphatase 53 Units/L (34-104); Aspartate Amino Transferase 34 Units/L (13-39); BUN/Creatinine Ratio 22 (6-26); Bilirubin,Total 0.2 mg/dL (0.3-1.0); Blood Urea Nitrogen 20 mg/dL (8-23); Calcium 8.7 mg/dL (8.6-10.3); Carbon Dioxide 32 mEq/L (23-29); Chloride 94 mEq/L (98-107); Globulin 2.4 g/dL (2.4-3.5); Glucose 167 mg/dL (70-105); Magnesium 1.4 mg/dL (1.6-2.6); Osmolality,Calculated 288 (280-300); Phosphorous 2.7 mg/dL (2.7-4.5); Potassium 3.9 mEq/L (3.5-5.1); Sodium 136 mEq/L (136-145); Total Protein 5.5 g/dL (6.4-8.9); eGFR For African Americans > 60 (> 60); eGFR For Non-African Americans > 60 (> 60)
[2019-03-21 02:02] LABS: Basophils % 0.2 %; Eosinophils % 0.9 %; Hematocrit 29.7 % (35.3-44.9); Hemoglobin 9.9 g/dL (11.5-15.4); Immature Granulocytes % 0.2 % (0-4); Lymphocytes # 1.6 K/mcL (0.6-4.6); Lymphocytes % 35.6 %; Mean Corpuscular HGB Conc 33.3 g/dL (31.6-35.5); Mean Platelet Volume 10.8 fL (9.4-12.4); Monocytes # 0.5 K/mcL (0.0-1.3); Monocytes % 11.6 %; Neutrophils # 2.3 K/mcL (1.6-8.9); Platelet Count 196 K/mcL (140-400); Segmented Neutrophils % 51.5 %; White Blood Count 4.5 K/mcL (4.3-11.1)
[2019-03-21] MEDS ORDERED: 0.9 % Sodium Chloride 500 ML IV ONE (03:13)
[2019-03-21] MEDS ORDERED: Morphine Sulfate 2 MG/ML SYRINGE IVP PRN (04:50)
[2019-03-21] MEDS ORDERED: Pantoprazole 40 MG VIAL IVP SCH (06:00)
[2019-03-21] MEDS: Metoprolol XL (24 HR) Succ 25 MG TAB.ER.24H PO SCH ×2 (08:45→20:57)
[2019-03-21] MEDS: Pantoprazole 40 MG VIAL IVP SCH (08:46)
[2019-03-21] MEDS: *HR* OxyCODONE Immed Rel 5 MG TABLET PO PRN ×2 (08:53→17:49)
[2019-03-21] MEDS: D5% in Lactated Ringers 1,000 ML IVC SCH ×2 (08:54→19:28)
[2019-03-21 09:00] LABS: Thyroid Stimulating Hormone 1.649 mcIU/mL (0.340-5.600)
--- NOTE | 2019-03-21 10:10 | Gastroenterology Consult Note ---
<Nieves Whiting - Last Filed: 03/21/19 10:56> Date of Encounter: 03/21/19 Time of Encounter: 09:50 - Assessment and plan (1) Weight loss, unintentional Current Visit: Yes Status: Acute Assessment and plan: Ms. Tam is a 59-year-old female who was presented to the ED after home health nurse found her down at home She reports unintentional weight loss unable to identify, she has lost blood per home nursing 11 pounds in the past 1 month She does state food no longer tastes good but denies any dysphagia Additionally reporting changes in bowel habits at times with diarrhea at times constipation She denies any hematochezia or melena She does have history of 2 pack per day current smoking with [id number] history No previous history of EGD or colonoscopy CT of the abdomen and pelvis did not show any acute upper maladies did show concern for mucosal lesion in stomach versus esophagus (2) Change in bowel movement Current Visit: Yes Status: Acute Assessment and plan: Presented to the ED after she was found down by home health nursing Nursing reporting 6 episodes of loose bowel movement for the past days She was recently on antibiotics for a foot ulcer D she reportedly ongoing diarrhea and was on Imodium at home will check stool panel and fecal calprotectin She does report at times has episodes of loose bowel movement with episodes of constipation Denies any previous EGD or colonoscopy Would recommend EGD and colonoscopy after stool panel returns Further recommendations by Dr. Caballero - Time Spent With Patient Total time spent is greater than 50% in coordination of care (as documented) at patient's floor/unit and/or counseling patient: GI History of Present Illness - Data of Consult Requesting Physician: Ace Chand MD - Consult Narrative History of present illness: Ms. Tam is a 59 year old female with history of seizure disorder, diabetes, hypertension who was presented to the ED after she was found down by home home health nurse facility. Current information is obtained from chart review. Reportedly patient has been having diarrhea since November 2018 lower spine to Imodium with 11 pound weight loss. Diarrhea is reported to be 5-6 episodes of liquidy brown nonbloody bowel movements. Patient does admit to having intact appetite but home health nursing reported she was only eating hot dogs and refused to eat any other meals but was compliant with her medication intake. She was recently on 2 different antibiotics for left leg ulcer start by her cafeteria worker Dr. Fierro. In the ER she was noted to have lactic acid 5.4 BP lactic acid 4.0 after hydration this morning 2.6. This morning she was seen at bedside estimate comfortably. She reports that she has episodes of diarrhea with episodes of normal bowel movement. Additionally states the food no longer tastes good and she is very picky when it comes to eating and has lost significant amount of weight reports she used to be "fat." She is unable to elaborate as to what she does eat denies any dysphagia but she states no longer tastes good and feels full easily. She does report of current tobacco use with 2 pack per day with 47-mttt-didu history denies any alcohol use or any other il licit drug use. Past Med Surg Social Fam HX - Past Medical History Medical history: CHF, COPD, diabetes, hypertension Additional medical history: RLS Psychiatric history: anxiety, bipolar, depression - Past Surgical History Surgical History: , orthopedic, other, other Additional surgical history: gallbladder. scar tissue removed ABD area. rene in right leg. left foot surgery - Social History Smoking Status: Current every day smoker Packs per day: 2 Smokeless Tobacco Status: No Alcohol use: none Drug use: none - Family History Mother Hx Family Cardiac Disorders: Yes (Pacer/Defib, CHF) Hx Family Respiratory Disorders: No Hx Family Cancer: No Hx Family GI Disorders: Yes (Hiatal hernia) Hx Family Endocrine Disorder: No Hx Family Neuromuscular Disorders: No Hx Family Neurologic Disorders: No Hx Family HEENT Disorders: No Hx Family Autoimmune Disorders: No Brother Hx Family Cardiac Disorders: No Hx Family Respiratory Disorders: No Hx Family Cancer: No Hx Family GI Disorders: No Hx Family Endocrine Disorder: Yes (DM) Hx Family Neuromuscular Disorders: No Hx Family Neurologic Disorders: No Hx Family HEENT Disorders: No Hx Family Autoimmune Disorders: No Sister Hx Family Cardiac Disorders: No Hx Family Respiratory Disorders: Yes (COPD) Hx Family Cancer: No Hx Family GI Disorders: Yes (Hernia, Colostomy) Hx Family Endocrine Disorder: Yes (DM) Hx Family Neuromuscular Disorders: No Hx Family Neurologic Disorders: No Hx Family HEENT Disorders: No Hx Family Autoimmune Disorders: No - Gastrointestinal Gastrointestinal: Present: diarrhea, other (Anorexia). Absent: abdominal pain, nausea, vomiting - Constitutional Constitutional: weight loss - EENT Nose, mouth and throat: Absent: dysphagia, hoarseness - Cardiovascular Cardiovascular ROS: Absent: chest pain, palpitations - Respiratory Respiratory IM: Absent: dyspnea, wheezing - Neurological ROS Neurological GI: Absent: tremor(s), weakness - Hematologic/Lymphatic Hematologic/Lymphatic pediatric: Absent: easy bleeding - Musculoskeletal Musculoskeletal ROS GI: Absent: back pain, joint swelling - Constitutional Vitals: Temp Pulse Resp BP Pulse Ox 97.6 F 62 16 111/77 96 03/21/19 07:06 03/21/19 07:06 03/21/19 07:06 03/21/19 07:06 03/21/19 07:06 - Head Head exam: Present: atraumatic, normal inspection - Eye Eye exam: Present: EOMI, normal appearance, sclera anicteric - ENT ENT exam: Present: mucous membranes moist, normal oropharynx - Neck Neck exam general surgery: Present: full ROM, trachea midline - Respiratory Respiratory exam: Present: CTAB. Absent: rhonchi, wheezes - Cardiovascular Cardiovascular exam: Present: RRR, +S1, +S2 - GI/Abdominal GI/Abdominal exam: Present: normal bowel sounds, soft. Absent: tenderness - Psychiatric Psychiatric exam: Present: normal affect, normal mood - Skin Skin exam: Present: dry, intact Results - Labs CBC & Chem 7: 03/21/19 01:17 03/21/19 01:17 Labs: Last Result 03/20/19 03/20/19 03/21/19 21:44 21:44 01:17 Calcium 8.7 Iron 44 L % Saturation 12 L Transferrin 254 Ferritin 169 H Vitamin B12 908 Folate 18.5 H Entire Visit 03/20/19 03/20/19 03/21/19 21:44 21:44 01:17 Hgb 9.9 L Hct 29.7 L Ferritin 169 H Total Bilirubin AST ALT Folate 18.5 H 03/21/19 01:17 Hgb Hct Ferritin Total Bilirubin 0.2 L AST 34 ALT 19 Folate - Impressions Impressions Abdomen/Pelvis CT 03/20/19 15:43 IMPRESSION: Moderate size hiatal hernia with moderate internal soft tissue density. While this may be due to hiatal hernia with collapse, the possibility of a mucosal lesion of the stomach or esophagus within the hernia should be considered. No evidence of colitis on noncontrast imaging, but with moderate stool throughout the colon. D/ / Toan Castillo MD / Toan Castillo MD Interpreting Provider: Toan Castillo MD Head CT 03/20/19 15:43 IMPRESSION: No acute intracranial abnormality. Mild atrophy. D/ / Toan Castillo MD / Toan Castillo MD Interpreting Provider: Toan Castillo MD Consult Discharge Plan - Plan Referrals: Meagan Carr CNP [Primary Care Provider] - <Carmen Caballero - Last Filed: 03/21/19 16:41> Date of Encounter: 03/21/19 Time of Encounter: 14:00 - Time Spent With Patient Total time spent is greater than 50% in coordination of care (as documented) at patient's floor/unit and/or counseling patient: GI History of Present Illness - Data of Consult Requesting Physician: Ace Chand MD - Consult Narrative History of present illness: Ms. Tam is a 59 year old female - Constitutional Vitals: Temp Pulse Resp BP Pulse Ox 97.7 F 76 14 128/83 94 03/21/19 15:25 03/21/19 15:25 03/21/19 16:04 03/21/19 15:25 03/21/19 16:04 Results - Labs CBC & Chem 7: 03/21/19 01:17 03/21/19 01:17 Labs: Last Result 03/21/19 01:17 Calcium 8.7 Entire Visit 03/21/19 01:17 Total Bilirubin 0.2 L AST 34 ALT 19 - Impressions Impressions Abdomen/Pelvis CT 03/20/19 15:43 IMPRESSION: Moderate size hiatal hernia with moderate internal soft tissue density. While this may be due to hiatal hernia with collapse, the possibility of a mucosal lesion of the stomach or esophagus within the hernia should be considered. No evidence of colitis on noncontrast imaging, but with moderate stool throughout the colon. D/ / Toan Castillo MD / Toan Castillo MD Interpreting Provider: Toan Castillo MD Head CT 03/20/19 15:43 IMPRESSION: No acute intracranial abnormality. Mild atrophy. D/ / Toan Castillo MD / Toan Castillo MD Interpreting Provider: Toan Castillo MD - Attending Attestation I examined this patient and my medical decision-making was reviewed with the Resident Physician. I agree with the documented findings, disposition and treatment plan as described except to the extent set forth below. Patient seen. No bowel movement since admission. Examination: Abdomen is soft. Assessment: Patient with anemia weight loss and change in bowel habits also has abnormal imaging concerning for pathology in the stomach/lower esophagus. Recommendation: The EGD colonoscopy tomorrow
--- NOTE | 2019-03-21 11:00 | Electrocardiograph Report ---
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
[2019-03-21] MEDS: Insulin LISPRO 300 UNITS/3 ML VIAL SQ SCH ×2 (12:19→18:04)
[2019-03-21] MEDS: *HR* Heparin 5,000 UNIT/ML VIAL SQ SCH ×2 (15:05→20:57)
--- NOTE | 2019-03-21 15:37 | Internal Med Progress Note ---
Hospitalist Progress Note - Encounter Date of Encounter: 03/21/19 Time of Encounter: 15:35 - Subjective Interval History: I have seen and evaluated the patient at bedside. Patient reported mild shortness of breath. reported change in her bowel habit for some time now. reported her bowel movement change from constipation to loose. also reported unintentional weight lost. - Exam Vitals: Temp Pulse Resp BP Pulse Ox 97.7 F 76 16 128/83 95 03/21/19 15:25 03/21/19 15:25 03/21/19 15:25 03/21/19 15:25 03/21/19 15:25 Exam: Vitals: Reviewed General: Alert and oriented x4. In mild distress due to shortness of breath. Cardiovascular: RRR, normal S1 & S2, no rubs, murmurs or gallops. Lungs: mild scattered inspiratory/expiratory wheezes b/l, no rales or crackles. Abdomen: Soft, non-tender, no rigidity. Extremities: clean dressing on the left lower extr. Neurological: Normal cognition and motor skills. Rest of the physical exam is non contributory - Assessment and Plan (1) Hypertension Current Visit: Yes Status: Chronic (2) Hyperlipidemia Current Visit: Yes Status: Chronic (3) Change in bowel movement Current Visit: Yes Status: Acute (4) Diarrhea Current Visit: Yes Status: Acute (5) Weight loss, unintentional Current Visit: Yes Status: Chronic (6) COPD (chronic obstructive pulmonary disease) Current Visit: No Status: Chronic (7) Schizoaffective disorder, bipolar type Current Visit: No Status: Chronic (8) Seizure Current Visit: No Status: Chronic - Summary of Assessment and Plan Summary of Assessment and Plan: 59 year old pleasant frail functional female presented to the ED for diarrhea. Assessment: 1. Diarrhea 2. Weight lost 3. COPD 4. Tobacco abuse 5. VTE prophylaxis 6. HTN 7. Hx of seizures 8. Dehydration Plan: - continue IV hydration. - will repeat lactic acid level. - GI panel ordered - GI recommendations appreciated - started on bronchodilators Q4RT PRN - methyl-prednisolone 40mg/IV BID, patient w/ smoking Hx and wheezing on auscultation. - chest x-ray ordered. - On singular - Patient is on divalproex. - On heparin subcutaneous. - On high intensity statins. Disposition: - Patient to remain in the hospital due to dehydration due to diarrhea. On IV hydration - Time Spent with Patient Total time spent is greater than 50% in coordination of care (as documented) at patient's floor/unit and/or counseling patient: Greater than 35 minutes (45) Plan of Care Discussed with: patient (and the nurse.) Internal Medicine: Result - Labs CBC & Chem 7: 03/21/19 01:17 03/21/19 01:17 Labs: Short CBC 03/20/19 03/21/19 Range/Units 16:00 01:17 WBC 6.4 4.5 (4.3-11.1) K/mcL Hgb 10.7 L 9.9 L (11.5-15.4) g/dL Hct 31.8 L 29.7 L (35.3-44.9) % Plt Count 222 196 (140-400) K/mcL Neutrophils # 3.7 2.3 (1.6-8.9) K/mcL BMP 03/20/19 03/21/19 16:00 01:17 Sodium 133 L 136 Potassium 3.7 3.9 Chloride 90 L 94 L Carbon Dioxide 30 H 32 H BUN 28 H 20 Creatinine 1.08 0.89 Glucose 109 H 167 H Calcium 9.1 8.7 Cardiac Enzymes 03/20/19 Range/Units 16:00 Troponin I < 0.03 (< 0.04) ng/mL Liver Function 03/20/19 03/21/19 Range/Units 16:00 01:17 Total Bilirubin 0.3 0.2 L (0.3-1.0) mg/dL AST 39 34 (13-39) Units/L ALT 22 19 (7-52) Units/L Alkaline Phosphatase 60 53 (34-104) Units/L Albumin 3.5 3.1 L (3.5-5.7) g/dL Urine 03/20/19 Range/Units 17:11 Urine Color Yellow (Yellow) Urine Clarity Clear (Clear) Urine pH 6.0 (5.0-8.0) pH Units Ur Specific Victor 1.013 (1.010-1.025) Urine Protein Negative (Neg-Trace) mg/dL Urine Glucose (UA) Normal (Normal) mg/dL - Impressions Impressions Abdomen/Pelvis CT 03/20/19 15:43 IMPRESSION: Moderate size hiatal hernia with moderate internal soft tissue density. While this may be due to hiatal hernia with collapse, the possibility of a mucosal lesion of the stomach or esophagus within the hernia should be considered. No evidence of colitis on noncontrast imaging, but with moderate stool throughout the colon. D/ / Toan Castillo MD / Toan Castillo MD Interpreting Provider: Toan Castillo MD Head CT 03/20/19 15:43 IMPRESSION: No acute intracranial abnormality. Mild atrophy. D/ / Toan Castillo MD / Toan Castillo MD Interpreting Provider: Toan Castillo MD Consult Discharge Plan - Plan Referrals: Meagan Carr CNP [Primary Care Provider] - (1) Hypertension Qualifiers: Hypertension type: unspecified Qualified Code(s): I10 - Essential (primary) hypertension (2) Hyperlipidemia Qualifiers: Hyperlipidemia type: unspecified Qualified Code(s): E78.5 - Hyperlipidemia, unspecified (4) Diarrhea Qualifiers: Diarrhea type: unspecified type Qualified Code(s): R19.7 - Diarrhea, unspecified (6) COPD (chronic obstructive pulmonary disease) Qualifiers: COPD type: chronic bronchitis Chronic bronchitis type: simple Qualified Code(s): J41.0 - Simple chronic bronchitis
[2019-03-21] MEDS: Ipratropium/Albuterol Neb 3 ML IH SCH ×2 (16:03→20:19)
[2019-03-21] MEDS ORDERED: SODIUM CHLORIDE/NAHCO3/KCL/PEG 4,000 ML SOLN.RECON PO ONE (17:00)
[2019-03-21] MEDS: MethylPREDNISolone 40 MG/ML VIAL IVP SCH (17:50)
[2019-03-21] MEDS: rOPINIRole 1 MG TABLET PO SCH (20:56)
[2019-03-21] MEDS: Nicotine 21 MG PATCH.TD24 TD SCH (20:56)
[2019-03-21] MEDS: Divalproex (24 HR) 500 MG TABLET PO SCH (20:57)
[2019-03-21] MEDS: Gabapentin 300 MG CAPSULE PO SCH (20:57)
[2019-03-21] MEDS: OLANZapine 5 MG TAB.RAPDIS PO SCH (20:57)
[2019-03-21] MEDS ORDERED: Ipratropium/Albuterol Neb 3 ML IH PRN (21:11)
[2019-03-22] MEDS: Insulin LISPRO 300 UNITS/3 ML VIAL SQ SCH ×4 (00:25→17:03)
[2019-03-22 04:38] LABS: Hematocrit 30.8 % (35.3-44.9); Hemoglobin 10.3 g/dL (11.5-15.4); Immature Granulocytes % 0.5 % (0-4); Lymphocytes # 1.6 K/mcL (0.6-4.6); Lymphocytes % 38.5 %; Mean Corpuscular HGB Conc 33.4 g/dL (31.6-35.5); Mean Corpuscular Hemoglobin 33.6 pg (28.0-33.3); Mean Corpuscular Volume 100.3 fL (83.0-100.0); Mean Platelet Volume 10.7 fL (9.4-12.4); Monocytes # 0.4 K/mcL (0.0-1.3); Monocytes % 9.4 %; Neutrophils # 2.1 K/mcL (1.6-8.9); Platelet Count 184 K/mcL (140-400); Red Blood Count 3.07 M/mcL (3.82-4.97); Segmented Neutrophils % 51.6 %; White Blood Count 4.1 K/mcL (4.3-11.1)
[2019-03-22 05:01] LABS: BUN/Creatinine Ratio 11 (6-26); Blood Urea Nitrogen 8 mg/dL (8-23); Calcium 8.6 mg/dL (8.6-10.3); Carbon Dioxide 32 mEq/L (23-29); Chloride 97 mEq/L (98-107); Glucose 118 mg/dL (70-105); Magnesium 1.3 mg/dL (1.6-2.6); Osmolality,Calculated 285 (280-300); Phosphorous 2.9 mg/dL (2.7-4.5); Sodium 138 mEq/L (136-145); eGFR For African Americans > 60 (> 60); eGFR For Non-African Americans > 60 (> 60)
[2019-03-22] MEDS: MethylPREDNISolone 40 MG/ML VIAL IVP SCH (05:41)
[2019-03-22] MEDS: *HR* Heparin 5,000 UNIT/ML VIAL SQ SCH ×3 (05:42→21:22)
[2019-03-22] MEDS: Pantoprazole 40 MG VIAL IVP SCH (09:33)
[2019-03-22] MEDS: Metoprolol XL (24 HR) Succ 25 MG TAB.ER.24H PO SCH ×2 (09:33→21:15)
--- NOTE | 2019-03-22 13:08 | Internal Med Progress Note ---
Hospitalist Progress Note - Encounter Date of Encounter: 03/22/19 Time of Encounter: 13:05 - Subjective Interval History: I have seen and evaluated the patient at bedside. Patient slightly somnolent today, arousable to voice and sternal stimuli, following commands. denies chest pain, shortness of breath or headache. - Exam Vitals: Temp Pulse Resp BP Pulse Ox 97.4 F L 66 16 129/82 94 03/22/19 11:24 03/22/19 11:24 03/22/19 11:24 03/22/19 11:24 03/22/19 11:24 Exam: Vitals: Reviewed General: Alert and oriented x3. In no distress. slightly somnolent today. Cardiovascular: RRR, normal S1 & S2, no rubs, murmurs or gallops. Lungs: CTA b/l, no wheezes, rales or crackles. Abdomen: Soft, non-tender, no rigidity. NABS in all 4 quadrants. Extremities: clean dressing on the left lower extr. Neurological: No acute focal neurological abnormalities Rest of the physical exam is non contributory - Assessment and Plan (1) Hypertension Current Visit: Yes Status: Chronic (2) Hyperlipidemia Current Visit: Yes Status: Chronic (3) Change in bowel movement Current Visit: Yes Status: Acute (4) Diarrhea Current Visit: Yes Status: Acute (5) Weight loss, unintentional Current Visit: Yes Status: Chronic (6) COPD (chronic obstructive pulmonary disease) Current Visit: No Status: Chronic (7) Schizoaffective disorder, bipolar type Current Visit: No Status: Chronic (8) Seizure Current Visit: No Status: Chronic - Summary of Assessment and Plan Summary of Assessment and Plan: 59 year old pleasant frail functional female presented to the ED for diarrhea. Assessment: 1. Diarrhea 2. Weight lost 3. COPD 4. Tobacco abuse 5. VTE prophylaxis 6. HTN 7. Hx of seizures 8. Dehydration (resolved) 9. Elevated lactic acid 10. Hypokalemia Plan: Patient slightly more somnolent today during my evaluation. - avoid sedating medications - Neuro checks Q1H - EEG ordered - Blood sugar and vitals checked at bedside wnl. - ABG, and trops ordered. - NPO except for medication, accu-checks Q6HRs plus lipro low dose sliding scale. - scheduled for EGD and colonoscopy today - D%LR @75ml/hr - GI recommendations appreciated - c/w bronchodilators Q4RT PRN. On singular - decrease methyl-prednisolone to 40mg/IV daily. - On divalproex. - Heparin subcutaneous. - On high intensity statins. - c/w metoprolol for BP control - patient with an elevated lactic acid level, unclear etiology. patient with no signs of sepsis. No abdominal pain, no bloody stool. - procalcitonin ordered Disposition: - Patient to remain in the hospital scheduled for EGD and colonoscopy. - Time Spent with Patient Total time spent is greater than 50% in coordination of care (as documented) at patient's floor/unit and/or counseling patient: Greater than 35 minutes (40) Plan of Care Discussed with: nurse Internal Medicine: Result - Labs CBC & Chem 7: 03/22/19 04:22 03/22/19 04:22 Labs: Short CBC 03/22/19 Range/Units 04:22 WBC 4.1 L (4.3-11.1) K/mcL Hgb 10.3 L (11.5-15.4) g/dL Hct 30.8 L (35.3-44.9) % Plt Count 184 (140-400) K/mcL Neutrophils # 2.1 (1.6-8.9) K/mcL BMP 03/22/19 04:22 Sodium 138 Potassium 4.0 Chloride 97 L Carbon Dioxide 32 H BUN 8 Creatinine 0.70 Glucose 118 H Calcium 8.6 - Impressions Impressions Chest X-Ray 03/21/19 15:36 IMPRESSION: Negative portable study. Moderate hiatal hernia is noted. D/ / Digna Sethi Cha, MD / Digna Sethi Cha, MD Interpreting Provider: Digna Sethi Cha, MD Consult Discharge Plan - Plan Referrals: Meagan Carr, [employer]SPORT ENGINEER [Primary Care Provider] - (1) Hypertension Qualifiers: Hypertension type: unspecified Qualified Code(s): I10 - Essential (primary) hypertension (2) Hyperlipidemia Qualifiers: Hyperlipidemia type: unspecified Qualified Code(s): E78.5 - Hyperlipidemia, unspecified (4) Diarrhea Qualifiers: Diarrhea type: unspecified type Qualified Code(s): R19.7 - Diarrhea, unspec ified (6) COPD (chronic obstructive pulmonary disease) Qualifiers: COPD type: chronic bronchitis Chronic bronchitis type: simple Qualified Code(s): J41.0 - Simple chronic bronchitis
[2019-03-22 13:09] LABS: ABG Base Excess 9 mEq/L (-2 to 3); ABG HCO3 34 mEq/L (21-27); ABG Oxygen Saturation 92 % (95-98); ABG PCO2 48 mmHg (35-45); ABG PH 7.46 pH Units (7.32-7.45); ABG PO2 61 mmHg (85-104); ABG TCO2 36 mEq/L (20-26)
[2019-03-22] MEDS ORDERED: D5% in Lactated Ringers 1,000 ML IVC SCH (13:15)
--- NOTE | 2019-03-22 16:50 | EEG/EMG/Oth Biometrics Report ---
EEG Procedure Report EEG Procedure: Routine EEG Procedure Note: This is a routine 21 channel digital EEG performed utilizing 10- 20 international electrode placement system. FINDINGS: This is a limited study due to significant movement artifact predominant waking background frequency is between 8-10 Hz that is average voltage 8 to 9 Hertz alpha activity in the posterior region, normal amplitude symmetrical over the both hemispheres reactive to eyes opening and closing record continued to show alpha activity intermixed with some theta off and on, no abnormal activity recorded, predominantly no evidence of any spike wave discharges or any lateralizing abnormalities, Photic stimulation did not produce any convulsive response. Intermittent EMG artifacts were noted. Stage II sleep was not achieved. Impression: Limited EEG due to significant movement artifact no obvious epileptiform discharges were noted Clinical correlation is suggested
--- NOTE | 2019-03-22 20:09 | Anesthesia Evaluation PreOp ---
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: Other (schizophrenia) Other Medical History: Diabetes Type II Anesthesia History: No Prior Anesthetic Complications, Past Anesthesia Alcohol Use: none Drug use: none Medications and Allergies Ondansetron HCl [Zofran] 8 mg PO Q6HR PRN 01/31/16 [History] Ascorbic Acid [Vitamin C] 500 mg PO DAILY 12/21/18 [History] Atorvastatin Calcium [Lipitor] 20 mg PO QPM 12/21/18 [History] Budesonide/Formoterol 80/4.5 [Symbicort 80/4.5] 2 puff IH BID 12/21/18 [History] Calcium/Vit B12/FA/Pyridoxine [Folic Acid-Vit B6-Vit B12 Tab] 1 tab PO DAILY 12/21/18 [History] Cholecalciferol (Vitamin D3) [Vitamin D3] 2,000 unit PO DAILY 12/21/18 [History] Dicyclomine [Bentyl] 20 mg PO QID PRN 12/21/18 [History] Divalproex (12 HR) [Depakote (12 HR)] 1,500 mg PO HS 12/21/18 [History] Ferrous Sulfate 325 mg PO DAILY 12/21/18 [History] Fluticasone Propionate Nasal [Flonase] 1 spray NS DAILY 12/21/18 [History] Furosemide [Lasix] 20 mg PO DAILY 12/21/18 [History] Gabapentin [Neurontin] 300 mg PO QAM 12/21/18 [History] Gabapentin [Neurontin] 400 mg PO HS 12/21/18 [History] Gemfibrozil 600 mg PO BID 12/21/18 [History] Insulin LISPRO [Humalog Kwikpen U-100] 0 - 10 unit SQ TID 12/21/18 [History] Linagliptin [Tradjenta] 5 mg PO DAILY 12/21/18 [History] Metformin HCl 1,000 mg PO BID 12/21/18 [History] Montelukast [Singulair] 10 mg PO DAILY 12/21/18 [History] Pantoprazole Sodium 40 mg PO BID 12/21/18 [History] Potassium Chloride [Klor-Con 10] 10 meq PO DAILY 12/21/18 [History] Ropinirole HCl [Requip] 2 mg PO HS 12/21/18 [History] Tramadol HCl [Ultram] 50 mg PO QID PRN 12/21/18 [History] diazePAM [Valium] 5 mg PO TID 12/21/18 [History] Allergy/AdvReac Type Severity Reaction Status Date / Time lorazepam [From Ativan] AdvReac Agitated Verified 12/21/18 09:21 - Meds/Allergy Pre-op Review Medications Reviewed: Yes Allergies Reviewed: Yes Beta Blockers on Current Med List: Yes If Beta Blockers taken, Date/Time (Last Dose taken): 03/22/2019 at 0933 Anesthesia Results - Labs 03/22/19 04:22 03/22/19 04:22 - Imaging EKG: report reviewed (03/20/2019 Sinus rhythm) Anesthesia Exam Vital Signs/O2 Sat/Glucose, Most Recent Temp Pulse Resp BP Pulse Ox 97.8 F 70 14 121/77 97 03/22/19 19:15 03/22/19 19:15 03/22/19 19:15 03/22/19 19:15 03/22/19 19:15 Blood Glucose* 188 Height: 5'5''/1.65m Weight: 118 lbs/53.7 kg Pain Scale: 0 Pain Scale Used: Numeric (1 - 10) - HEENT Pupil (Motor): EOMI Mallampati: II Teeth: Edentulous Oral Opening: Greater than 3 - [employer] SYSTEM[employer] MAINTAINER LOC: Oriented [employer] MAINTAINER Motor: Normal RUE, Normal LUE, Normal RLE, Normal LLE, Normal Face [employer]INTAINER Sensory: Normal: RUE, LUE, RLE, LLE, Face - Cardiac Rhythm: Regular Murmur: None - Pulmonary Breath Sounds: bilateral Clear Respiratory Effort: Symmetrical Anesthesia Assess/Plan ASA Score: 3 Level of consciousness: Cooperative, Oriented, Tranquil Anesthetic Plan: MAC Monitoring Plan: Standard Monitors
[2019-03-22] MEDS: Nicotine 21 MG PATCH.TD24 TD SCH (21:13)
[2019-03-22] MEDS: rOPINIRole 1 MG TABLET PO SCH (21:14)
[2019-03-22] MEDS: Divalproex (24 HR) 500 MG TABLET PO SCH (21:14)
[2019-03-22] MEDS: OLANZapine 5 MG TAB.RAPDIS PO SCH (21:15)
[2019-03-22] MEDS: Gabapentin 300 MG CAPSULE PO SCH (21:15)
[2019-03-23] MEDS: Insulin LISPRO 300 UNITS/3 ML VIAL SQ SCH ×4 (00:36→18:18)
[2019-03-23 04:53] LABS: Basophils % 0.2 %; Eosinophils % 0.5 %; Hematocrit 29.7 % (35.3-44.9); Immature Granulocytes % 0.5 % (0-4); Lymphocytes # 1.7 K/mcL (0.6-4.6); Lymphocytes % 40.3 %; Mean Corpuscular HGB Conc 33.7 g/dL (31.6-35.5); Mean Corpuscular Hemoglobin 33.8 pg (28.0-33.3); Mean Corpuscular Volume 100.3 fL (83.0-100.0); Mean Platelet Volume 11.3 fL (9.4-12.4); Monocytes # 0.4 K/mcL (0.0-1.3); Monocytes % 9.2 %; Platelet Count 162 K/mcL (140-400); Red Blood Count 2.96 M/mcL (3.82-4.97); Red Cell Distribution Width 13.8 % (11.5-14.5); Segmented Neutrophils % 49.3 %; White Blood Count 4.1 K/mcL (4.3-11.1)
[2019-03-23 05:10] LABS: Magnesium 1.5 mg/dL (1.6-2.6); Phosphorous 2.8 mg/dL (2.7-4.5)
[2019-03-23] MEDS: *HR* Heparin 5,000 UNIT/ML VIAL SQ SCH ×3 (06:08→20:12)
[2019-03-23] MEDS ORDERED: Propofol 500 MG/50 ML INFUS..BTL ONE (07:55)
[2019-03-23] MEDS ORDERED: Lidocaine -MPF 2% 2 ML VIAL ONE (07:56)
[2019-03-23] MEDS ORDERED: 0.9 % Sodium Chloride 500 ML IVC SCH (08:15)
--- NOTE | 2019-03-23 08:41 | Electrocardiograph Report ---
[place] [id number] Test Date: 2019-03-22 Pat Name: Lynne Tam Department: 112 Room: 2A Gender: F [employer]: : 1960 Requested By: Ace Chand Order Number: [id number] Reading MD: Toni Malcolm Measurements Intervals Stacy Rate: 66 P: 67 IL: 161 QRS: 1 QRSD: 93 T: 20 QT: 401 QTc: 414 Interpretive Statements SINUS RHYTHM SEPTAL MYOCARDIAL INFARCTION, OF INDETERMINATE AGE Electronically Signed On 03-23-2019 8:39:57 EDT by Toni Malcolm
[2019-03-23] MEDS ORDERED: MethylPREDNISolone 40 MG/ML VIAL IVP SCH (09:00)
[2019-03-23] MEDS: Metoprolol XL (24 HR) Succ 25 MG TAB.ER.24H PO SCH ×2 (10:21→20:11)
[2019-03-23 11:14] LABS: BUN/Creatinine Ratio 8 (6-26); Blood Urea Nitrogen 5 mg/dL (8-23); Calcium 8.3 mg/dL (8.6-10.3); Carbon Dioxide 31 mEq/L (23-29); Chloride 97 mEq/L (98-107); Glucose 79 mg/dL (70-105); Osmolality,Calculated 276 (280-300); Potassium 3.4 mEq/L (3.5-5.1); Sodium 135 mEq/L (136-145); eGFR For African Americans > 60 (> 60); eGFR For Non-African Americans > 60 (> 60)
--- NOTE | 2019-03-23 14:09 | Internal Med Progress Note ---
Hospitalist Progress Note - Encounter Date of Encounter: 03/23/19 Time of Encounter: 14:06 - Subjective Interval History: I have seen and evaluated the patient at bedside. patient reported feeling well. denies nausea, vomiting or abdominal pain. Reported she is tolerating her diet well today. - Exam Vitals: Temp Pulse Resp BP Pulse Ox 96.3 F L 66 18 153/76 100 03/23/19 12:32 03/23/19 11:10 03/23/19 11:10 03/23/19 11:10 03/23/19 11:10 Exam: Vitals: Reviewed General: Alert and oriented x3. In no distress Cardiovascular: RRR, normal S1 & S2, no rubs, murmurs or gallops. Lungs: CTA b/l, no wheezes, rales or crackles. Abdomen: Soft, non-tender, no rigidity. NABS in all 4 quadrants. Extremities: clean dressing on the left lower extr. wound to the plantar aspect of her left foot Neurological: No acute focal neurological abnormalities Rest of the physical exam is non contributory - Assessment and Plan (1) Hypertension Current Visit: Yes Status: Chronic (2) Hyperlipidemia Current Visit: Yes Status: Chronic (3) Change in bowel movement Current Visit: Yes Status: Acute (4) Diarrhea Current Visit: Yes Status: Acute (5) Weight loss, unintentional Current Visit: Yes Status: Chronic (6) COPD (chronic obstructive pulmonary disease) Current Visit: No Status: Chronic (7) Schizoaffective disorder, bipolar type Current Visit: No Status: Chronic (8) Seizure Current Visit: No Status: Chronic (9) Wound of left foot Current Visit: Yes Status: Chronic - Summary of Assessment and Plan Summary of Assessment and Plan: 59 year old pleasant frail functional female presented to the ED for diarrhea. Assessment: 1. Diarrhea (resolved) 2. Weight lost 3. COPD 4. Tobacco abuse 5. VTE prophylaxis 6. HTN 7. Hx of seizures 8. Dehydration (resolved) 9. Elevated lactic acid (resolved) 10. Hypokalemia 11. Large hiatal hernia 12. Esophagitis Plan: Patient reported feeling well today, denies diarrhea. toleration oral intake well. S/P EGD and colonoscopy - resume regular diet - c/w PPIs - GI recommendations appreciated - on bronchodilators Q4RT PRN. On singular - dc IV steroids. started on prednisone 40mg/PO daily. - On divalproex. - Heparin subq for dvt prophylaxis. - c/w statin - c/w metoprolol for BP control - Patient hypothermia. hemodynamically stable. - warming blankets, and blood culture ordered. Disposition: - Patient to remain in the hospital due to hypothermia on warming blankets. Potential discharge tomorrow. - Time Spent with Patient Total time spent is greater than 50% in coordination of care (as documented) at patient's floor/unit and/or counseling patient: Greater than 35 minutes (40) Plan of Care Discussed with: patient (her mother and the nurse.) Internal Medicine: Result - Labs CBC & Chem 7: 03/23/19 03:55 03/23/19 10:35 Labs: Short CBC 03/23/19 Range/Units 03:55 WBC 4.1 L (4.3-11.1) K/mcL Hgb 10.0 L (11.5-15.4) g/dL Hct 29.7 L (35.3-44.9) % Plt Count 162 (140-400) K/mcL Neutrophils # 2.0 (1.6-8.9) K/mcL BMP 03/23/19 10:35 Sodium 135 L Potassium 3.4 L Chloride 97 L Carbon Dioxide 31 H BUN 5 L Creatinine 0.60 Glucose 79 Calcium 8.3 L Cardiac Enzymes 03/22/19 Range/Units 15:35 Troponin I < 0.03 (< 0.04) ng/mL - ABG Interpretation ABG results: ABG ABG pH 7.46 pH Units (7.32-7.45) H 03/22/19 13:07 ABG pCO2 48 mmHg (35-45) H 03/22/19 13:07 ABG pO2 61 mmHg (85-104) L 03/22/19 13:07 ABG O2 Saturation 92 % (95-98) L 03/22/19 13:07 Consult Discharge Plan - Plan Referrals: Meagan Carr, [employer] [Primary Care Provider] - (1) Hypertension Qualifiers: Hypertension type: unspecified Qualified Code(s): I10 - Essential (primary) hypertension (2) Hyperlipidemia Qualifiers: Hyperlipidemia type: unspecified Qualified Code(s): E78.5 - Hyperlipidemia, unspecified (4) Diarrhea Qualifiers: Diarrhea type: unspecified type Qualified Code(s): R19.7 - Diarrhea, unspecified (6) COPD (chronic obstructive pulmonary disease) Qualifiers: COPD type: chronic bronchitis Chronic bronchitis type: simple Qualified Code(s): J41.0 - Simple chronic bronchitis
[2019-03-23] MEDS: OLANZapine 5 MG TAB.RAPDIS PO SCH (20:11)
[2019-03-23] MEDS: rOPINIRole 1 MG TABLET PO SCH (20:11)
[2019-03-23] MEDS: Nicotine 21 MG PATCH.TD24 TD SCH (20:11)
[2019-03-23] MEDS: Gabapentin 300 MG CAPSULE PO SCH (20:11)
[2019-03-23] MEDS: Divalproex (24 HR) 500 MG TABLET PO SCH (20:11)
[2019-03-23] MEDS ORDERED: Insulin LISPRO 300 UNITS/3 ML VIAL SQ SCH (21:00)
[2019-03-24 03:55] LABS: Basophils % 0.2 %; Eosinophils % 0.6 %; Hematocrit 28.6 % (35.3-44.9); Immature Granulocytes % 0.5 % (0-4); Lymphocytes # 2.3 K/mcL (0.6-4.6); Lymphocytes % 34.8 %; Mean Corpuscular Volume 97.3 fL (83.0-100.0); Mean Platelet Volume 10.7 fL (9.4-12.4); Monocytes # 0.6 K/mcL (0.0-1.3); Monocytes % 9.9 %; Neutrophils # 3.5 K/mcL (1.6-8.9); Platelet Count 188 K/mcL (140-400); Red Blood Count 2.94 M/mcL (3.82-4.97); Red Cell Distribution Width 13.8 % (11.5-14.5)
[2019-03-24 03:56] LABS: White Blood Count 6.5 K/mcL (4.3-11.1)
[2019-03-24 04:13] LABS: BUN/Creatinine Ratio 12 (6-26); Blood Urea Nitrogen 9 mg/dL (8-23); Calcium 8.9 mg/dL (8.6-10.3); Carbon Dioxide 31 mEq/L (23-29); Chloride 94 mEq/L (98-107); Magnesium 1.8 mg/dL (1.6-2.6); Sodium 129 mEq/L (136-145); eGFR For African Americans > 60 (> 60); eGFR For Non-African Americans > 60 (> 60)
[2019-03-24 04:29] LABS: Glucose 199 mg/dL (70-105); Osmolality,Calculated 272 (280-300)
[2019-03-24] MEDS: *HR* Heparin 5,000 UNIT/ML VIAL SQ SCH (05:26)
[2019-03-24 08:12] VITALS: BP 143/94
[2019-03-24] MEDS: Insulin LISPRO 300 UNITS/3 ML VIAL SQ SCH (08:34)
[2019-03-24] MEDS: Metoprolol XL (24 HR) Succ 25 MG TAB.ER.24H PO SCH (08:37)
[2019-03-24] MEDS ORDERED: predniSONE 20 MG TABLET PO SCH (09:00)
--- NOTE | 2019-03-24 10:47 | Discharge Summary ---
Orders not resulted at time of discharge: Pending orders 03/23/19 08:47 Surgical Pathology [PTH] Routine 03/23/19 14:20 Culture,Blood [BC] Stat Date of Encounter: 03/24/19 Time of Encounter: 10:45 - Discharge Diagnosis (1) Hypertension Priority: Secondary Status: Chronic Qualifiers: Hypertension type: unspecified Qualified Code(s): I10 - Essential (primary) hypertension (2) Hyperlipidemia Priority: Secondary Status: Chronic Qualifiers: Hyperlipidemia type: unspecified Qualified Code(s): E78.5 - Hyperlipidemia, unspecified (3) Change in bowel movement Priority: Primary Status: Chronic (4) Diarrhea Priority: Primary Status: Resolved Qualifiers: Diarrhea type: unspecified type Qualified Code(s): R19.7 - Diarrhea, unspecified (5) Weight loss, unintentional Priority: Secondary Status: Chronic (6) COPD (chronic obstructive pulmonary disease) Priority: Secondary Status: Chronic Qualifiers: COPD type: chronic bronchitis Chronic bronchitis type: simple Qualified Code(s): J41.0 - Simple chronic bronchitis (7) Schizoaffective disorder, bipolar type Priority: Secondary Status: Chronic (8) Seizure Priority: Secondary Status: Chronic (9) Wound of left foot Priority: Secondary Status: Chronic (10) Protein malnutrition Priority: Secondary Status: Chronic Hospital course: Ms. Tam is a 59 year old female PMH of CHF, COPD, diabetes, hypertension, anxiety, bipolar, depression. experiencing diarrhea since 11/2018 progressing worsening and despite being an Imodium. patient continues to have 5-6 bowel movements a day liquid and texture brown nonbloody worsening with associated with over 11 pounds of weight loss the past month. Admitted to the hospital due to diarrhea, weight lost and dehydration. Patient managed with IV hydration. GI consulted and patient underwent: EGD: large hiatal hernia, LA grade A esophatitis. Colonoscopy: the entire examined colon was normal. During this hospitalization diarrhea has stopped. Patient has been tolerating well oral intake and is clinically stable to be discharged home. - Time Spent with Patient Total time spent providing and/or coordinating discharge services: Time spent: Greater than 30 minutes (35) - Discharge Medications Prescriptions: New Divalproex (24 HR) [Depakote ER (24 HR)] 1,500 mg PO HS tab.er.24h predniSONE [PredniSONE] 40 mg PO DAILY 1 Days #1 tablet predniSONE [PredniSONE] 30 mg PO DAILY 1 Days #1 tablet predniSONE [PredniSONE] 10 mg PO DAILY 1 Days #1 tablet predniSONE [PredniSONE] 20 mg PO DAILY 1 Days #1 tablet Metoprolol XL (24 HR) Succ [Toprol Xl] 25 mg PO DAILY 30 Days #30 tab.er.24h Continued Ondansetron HCl [Zofran] 8 mg PO Q6HR PRN PRN Reason: Nausea Tramadol HCl [Ultram] 50 mg PO QID PRN PRN Reason: Pain Ropinirole HCl [Requip] 2 mg PO HS Potassium Chloride [Klor-Con 10] 10 meq PO DAILY Pantoprazole Sodium 40 mg PO BID Montelukast [Singulair] 10 mg PO DAILY Metformin HCl 1,000 mg PO BID Linagliptin [Tradjenta] 5 mg PO DAILY Insulin LISPRO [Humalog Kwikpen U-100] 0 - 10 unit SQ TID Gemfibrozil 600 mg PO BID Gabapentin [Neurontin] 300 mg PO QAM Gabapentin [Neurontin] 400 mg PO HS Ferrous Sulfate 325 mg PO DAILY Divalproex (12 HR) [Depakote (12 HR)] 1,500 mg PO HS Dicyclomine [Bentyl] 20 mg PO QID PRN PRN Reason: IBS diazePAM [Valium] 5 mg PO TID Cholecalciferol (Vitamin D3) [Vitamin D3] 2,000 unit PO DAILY Budesonide/Formoterol 80/4.5 [Symbicort 80/4.5] 2 puff IH BID Atorvastatin Calcium [Lipitor] 20 mg PO QPM Ascorbic Acid [Vitamin C] 500 mg PO DAILY Fluticasone Propionate Nasal [Flonase] 1 spray NS DAILY Calcium/Vit B12/FA/Pyridoxine [Folic Acid-Vit B6-Vit B12 Tab] 1 tab PO DAILY Furosemide [Lasix] 20 mg PO DAILY Home Medications: Ondansetron HCl [Zofran] 8 mg PO Q6HR PRN 01/31/16 [History] Ascorbic Acid [Vitamin C] 500 mg PO DAILY 12/21/18 [History] Atorvastatin Calcium [Lipitor] 20 mg PO QPM 12/21/18 [History] Budesonide/Formoterol 80/4.5 [Symbicort 80/4.5] 2 puff IH BID 12/21/18 [History] Calcium/Vit B12/FA/Pyridoxine [Folic Acid-Vit B6-Vit B12 Tab] 1 tab PO DAILY 12/21/18 [History] Cholecalciferol (Vitamin D3) [Vitamin D3] 2,000 unit PO DAILY 12/21/18 [History] Dicyclomine [Bentyl] 20 mg PO QID PRN 12/21/18 [History] Divalproex (12 HR) [Depakote (12 HR)] 1,500 mg PO HS 12/21/18 [History] Ferrous Sulfate 325 mg PO DAILY 12/21/18 [History] Fluticasone Propionate Nasal [Flonase] 1 spray NS DAILY 12/21/18 [History] Furosemide [Lasix] 20 mg PO DAILY 12/21/18 [History] Gabapentin [Neurontin] 300 mg PO QAM 12/21/18 [History] Gabapentin [Neurontin] 400 mg PO HS 12/21/18 [History] Gemfibrozil 600 mg PO BID 12/21/18 [History] Insulin LISPRO [Humalog Kwikpen U-100] 0 - 10 unit SQ TID 12/21/18 [History] Linagliptin [Tradjenta] 5 mg PO DAILY 12/21/18 [History] Metformin HCl 1,000 mg PO BID 12/21/18 [History] Montelukast [Singulair] 10 mg PO DAILY 12/21/18 [History] Pantoprazole Sodium 40 mg PO BID 12/21/18 [History] Potassium Chloride [Klor-Con 10] 10 meq PO DAILY 12/21/18 [History] Ropinirole HCl [Requip] 2 mg PO HS 12/21/18 [History] Tramadol HCl [Ultram] 50 mg PO QID PRN 12/21/18 [History] diazePAM [Valium] 5 mg PO TID 12/21/18 [History] Divalproex (24 HR) [Depakote ER (24 HR)] 1,500 mg PO HS tab.er.24h 03/24/19 [Rx] Metoprolol XL (24 HR) Succ [Toprol Xl] 25 mg PO DAILY 30 Days #30 tab.er.24h 03/24/19 [Rx] predniSONE [PredniSONE] 10 mg PO DAILY 1 Days #1 tablet 03/24/19 [Rx] predniSONE [PredniSONE] 20 mg PO DAILY 1 Days #1 tablet 03/24/19 [Rx] predniSONE [PredniSONE] 30 mg PO DAILY 1 Days #1 tablet 03/24/19 [Rx] predniSONE [PredniSONE] 40 mg PO DAILY 1 Days #1 tablet 03/24/19 [Rx] Allergies/Adverse Reactions: Allergy/AdvReac Type Severity Reaction Status Date / Time lorazepam [From Ativan] AdvReac Agitated Verified 12/21/18 09:21 Date of admission: 03/21/19 08:04 Primary care physician: Meagan Carr CNP Consults: 03/20/19 20:34 Consult to Nutrition [CONS] Routine Comment: Consulting Provider: NUTRITION Reason for Dietary Consult: Other Other:: Severe malnutrition. Consult to Physical Therapy [CONS] Routine Comment: Evaluate, develop and implement POC Reason for Consult: Evaluation and treatment. Does patient have active BEDREST order?: No Is patient medically & hemodynamically stable?: Yes Patient assessed for mobility or mobilized this visit?: No 03/20/19 21:19 Consult to Nutrition [CONS] Routine Comment: Consulting Provider: NUTRITION Reason for Dietary Consult: MST Score Consult to Pastoral Services [CONS] Routine Comment: Consult to Care Mgr [CONS] Routine Reason for SW Consult: patient has difficulty caring for herself within her home. Does have home health aide that visits three days a week. 03/21/19 07:00 Consult to Gastroenterology [CONS] Routine Consulting Provider: Zenaida Bobby Reason for Consult: chronic diarrhea with significant weightloss and malnutrition. No prevoius colonoscopy. Call Completed: No Consult to Wound Care [CONS] Routine Reason for Consult: left leg ulcer Call Completed: No 03/22/19 15:55 Consult to Interpret Exam [CONS] Routine Consulting Provider: Samia Rizvi I Consult to Interpret Exam: Interpret Sleep Study - Constitutional Vitals: Temp Pulse Resp BP Pulse Ox 98.2 F 80 17 143/94 99 03/24/19 08:07 03/24/19 08:07 03/24/19 08:07 03/24/19 08:07 03/24/19 08:07 Exam: Vitals: Reviewed General: Alert and oriented x3. In no distress Cardiovascular: RRR, normal S1 & S2, no rubs, murmurs or gallops. Lungs: CTA b/l, no wheezes, rales or crackles. Abdomen: Soft, non-tender, no rigidity. NABS in all 4 quadrants. Extremities: clean dressing on the left lower extr. wound to the plantar aspect of her left foot Neurological: No acute focal neurological abnormalities Rest of the physical exam is non contributory - Patient Status Disposition: Home Health Service Condition: Fair Functional capacity at discharge: independent ambulation Overall status at discharge: patient is back to baseline - Discharge Instructions Follow Up With: Meagan Carr CNP [Primary Care Provider] - - Diet and Activity Activity: resume usual activities as tolerated Diet: advance to your usual diet
--- NOTE | 2019-03-24 10:57 | Physician Discharge Referral ---
Home Health/Hosp Referral Info Transfer to: Home Health - Diagnosis (1) Hypertension Priority: Secondary Status: Chronic (2) Hyperlipidemia Priority: Secondary Status: Chronic (3) Change in bowel movement Priority: Primary Status: Chronic (4) Diarrhea Priority: Primary Status: Resolved (5) Weight loss, unintentional Priority: Primary Status: Chronic (6) COPD (chronic obstructive pulmonary disease) Priority: Primary Status: Chronic (7) Schizoaffective disorder, bipolar type Priority: Secondary Status: Chronic (8) Seizure Priority: Secondary Status: Chronic (9) Wound of left foot Priority: Secondary Status: Chronic (10) Protein malnutrition Priority: Secondary Status: Chronic - Respiratory Orders None Smoking Cessation: Smoking cessation has been advised. For more information, call the [place] Tobacco Quit Line at 3-591-XMIFNOW. - Diet/Nutrition Diet/Nutrition Orders: Regular - Activity Activity Orders: Ambulate - Services Needed Following services are medically necessary services: Home Health Aide, Physical Therapy, Occupational Therapy - Transfer Medications Prescriptions: predniSONE [PredniSONE] 30 mg PO DAILY 1 Days #1 tablet predniSONE [PredniSONE] 10 mg PO DAILY 1 Days #1 tablet predniSONE [PredniSONE] 40 mg PO DAILY 1 Days #1 tablet predniSONE [PredniSONE] 20 mg PO DAILY 1 Days #1 tablet Metoprolol XL (24 HR) Succ [Toprol Xl] 25 mg PO DAILY 30 Days #30 tab.er.24h Home Medications: Ondansetron HCl [Zofran] 8 mg PO Q6HR PRN 01/31/16 [History] Ascorbic Acid [Vitamin C] 500 mg PO DAILY 12/21/18 [History] Atorvastatin Calcium [Lipitor] 20 mg PO QPM 12/21/18 [History] Budesonide/Formoterol 80/4.5 [Symbicort 80/4.5] 2 puff IH BID 12/21/18 [History] Calcium/Vit B12/FA/Pyridoxine [Folic Acid-Vit B6-Vit B12 Tab] 1 tab PO DAILY 12/21/18 [History] Cholecalciferol (Vitamin D3) [Vitamin D3] 2,000 unit PO DAILY 12/21/18 [History] Dicyclomine [Bentyl] 20 mg PO QID PRN 12/21/18 [History] Divalproex (12 HR) [Depakote (12 HR)] 1,500 mg PO HS 12/21/18 [History] Ferrous Sulfate 325 mg PO DAILY 12/21/18 [History] Fluticasone Propionate Nasal [Flonase] 1 spray NS DAILY 12/21/18 [History] Furosemide [Lasix] 20 mg PO DAILY 12/21/18 [History] Gabapentin [Neurontin] 300 mg PO QAM 12/21/18 [History] Gabapentin [Neurontin] 400 mg PO HS 12/21/18 [History] Gemfibrozil 600 mg PO BID 12/21/18 [History] Insulin LISPRO [Humalog Kwikpen U-100] 0 - 10 unit SQ TID 12/21/18 [History] Linagliptin [Tradjenta] 5 mg PO DAILY 12/21/18 [History] Metformin HCl 1,000 mg PO BID 12/21/18 [History] Montelukast [Singulair] 10 mg PO DAILY 12/21/18 [History] Pantoprazole Sodium 40 mg PO BID 12/21/18 [History] Potassium Chloride [Klor-Con 10] 10 meq PO DAILY 12/21/18 [History] Ropinirole HCl [Requip] 2 mg PO HS 12/21/18 [History] Tramadol HCl [Ultram] 50 mg PO QID PRN 12/21/18 [History] diazePAM [Valium] 5 mg PO TID 12/21/18 [History] Divalproex (24 HR) [Depakote ER (24 HR)] 1,500 mg PO HS tab.er.24h 03/24/19 [Rx] Metoprolol XL (24 HR) Succ [Toprol Xl] 25 mg PO DAILY 30 Days #30 tab.er.24h 03/24/19 [Rx] predniSONE [PredniSONE] 10 mg PO DAILY 1 Days #1 tablet 03/24/19 [Rx] predniSONE [PredniSONE] 20 mg PO DAILY 1 Days #1 tablet 03/24/19 [Rx] predniSONE [PredniSONE] 30 mg PO DAILY 1 Days #1 tablet 03/24/19 [Rx] predniSONE [PredniSONE] 40 mg PO DAILY 1 Days #1 tablet 03/24/19 [Rx] Allergies/Adverse Reactions: Allergy/AdvReac Type Severity Reaction Status Date / Time lorazepam [From Ativan] AdvReac Agitated Verified 12/21/18 09:21 Certification: Further, I certify that my clinical findings support that this patient is homebound (i.e. absences from home require considerable and taxing effort and are for medical reasons or buddhist services or infrequently or short duration when for other reasons) because: Homebound Reason: Patient requires assistance of a person or device to safely leave home Attestation: My signature below is to certify that this patient is under my care and that I, or nurse practitioner, or a physician's land surveyor assistant working with me, has a [id number] encounter with this patient.
--- NOTE | 2019-03-26 10:01 | Electrocardiograph Report ---
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
== END 2019-03-24 12:34 | disposition home health service (06) ==
LOC: 2ANU 14:28 → EMEROOARM 14:28 → SUATTDRO 20:03 → 2ANU 21:00
PROVIDERS: ADMIT Family Medicine; ATTEND Internal Medicine

== ENCOUNTER 2019-05-04 11:02 | Inpatient (IN) ==
[2019-05-04 11:55] LABS: Basophils % 0.3 %; Eosinophils # 0.1 K/mcL (0.0-0.6); Hematocrit 34.4 % (35.3-44.9); Hemoglobin 12.4 g/dL (11.5-15.4); Immature Granulocytes % 1.3 % (0-4); Lymphocytes # 1.4 K/mcL (0.6-4.6); Lymphocytes % 46.3 %; Mean Corpuscular Hemoglobin 35.2 pg (28.0-33.3); Mean Corpuscular Volume 97.7 fL (83.0-100.0); Mean Platelet Volume 10.8 fL (9.4-12.4); Monocytes # 0.3 K/mcL (0.0-1.3); Monocytes % 11.4 %; Neutrophils # 1.2 K/mcL (1.6-8.9); Platelet Count 180 K/mcL (140-400); Red Blood Count 3.52 M/mcL (3.82-4.97); Red Cell Distribution Width 12.9 % (11.5-14.5); Segmented Neutrophils % 38.7 %
[2019-05-04 12:18] LABS: Alanine Aminotransferase 16 Units/L (7-52); Albumin 3.6 g/dL (3.5-5.7); Albumin/Globulin Ratio 1.3 (1.1-2.2); Alkaline Phosphatase 79 Units/L (34-104); Aspartate Amino Transferase 44 Units/L (13-39); BUN/Creatinine Ratio 6 (6-26); Bilirubin,Total 0.4 mg/dL (0.3-1.0); Blood Urea Nitrogen 5 mg/dL (8-23); Carbon Dioxide 32 mEq/L (23-29); Chloride 82 mEq/L (98-107); Globulin 2.7 g/dL (2.4-3.5); Glucose 110 mg/dL (70-105); Magnesium 1.4 mg/dL (1.6-2.6); Osmolality,Calculated 252 (280-300); Potassium 3.5 mEq/L (3.5-5.1); Sodium 122 mEq/L (136-145); Total Protein 6.3 g/dL (6.4-8.9); eGFR For African Americans > 60 (> 60); eGFR For Non-African Americans > 60 (> 60)
[2019-05-04 12:58] LABS: Bilirubin,Urine Negative (Negative); Blood,Urine Negative (Negative); Color,Urine Yellow (Yellow); Glucose,Urine (UA) Normal (Normal); Ketones,Urine Negative (Negative); Leukocyte Esterase,Urine Small (Negative); Nitrite,Urine Negative (Negative); Protein,Urine Negative (Neg-Trace); Specific Gravity,Urine 1.022 (1.010-1.025); Urobilinogen,Urine Normal (Normal)
[2019-05-04 13:00] LABS: Bacteria,Urine Few per hpf (None-Few); Hyaline Casts,Urine None Seen per lpf (None-Few); RBC,Urine 0-3 per hpf (0-3); Squamous Epithelial Cell,Urine Many per lpf (None-Few)
[2019-05-04 13:02] LABS: Clarity,Urine Clear (Clear)
[2019-05-04] MEDS ORDERED: Lactulose Oral Soln 20 GM/30 ML UDC PO ONE (13:02)
[2019-05-04 13:06] LABS: Sodium, Urine 26.6 mEq/L
[2019-05-04 13:21] LABS: Renal Epithelial Cells,Urine Few per hpf (None-Few)
[2019-05-04 13:22] LABS: Yeast,Urine Few per hpf (None Seen)
[2019-05-04] MEDS ORDERED: 0.9 % Sodium Chloride 1,000 ML IVC STA (13:52)
[2019-05-04] MEDS ORDERED: Naloxone 0.4 MG/ML INJ IVP ONE (14:24)
[2019-05-04] MEDS ORDERED: Ammonia Inhalant AMPUL IH ONE (14:24)
[2019-05-04] MEDS ORDERED: Naloxone 0.4 MG/ML INJ ONE (14:25)
[2019-05-04] MEDS ORDERED: Ammonia Inhalant AMPUL ONE ×2 (14:26)
[2019-05-04] MEDS ORDERED: Lactulose 200 GM/300 ML (for enema) RC PRN (14:49)
[2019-05-04] MEDS ORDERED: Albuterol 2.5 MG/3 ML NEBULIZER IH PRN (15:50)
[2019-05-04] MEDS ORDERED: *HR* Dextrose 50 % in Water (Syg) 50 ML SYRINGE IVP ONE (16:12)
[2019-05-04] MEDS: Naloxone 0.4 MG/ML INJ IVP PRN ×4 (16:28→18:40)
[2019-05-04] MEDS ORDERED: D5% in Water 1,000 ML IVC PRN (16:37)
[2019-05-04] MEDS ORDERED: *HR* Dextrose 50 % in Water (Syg) 50 ML SYRINGE IVP PRN (16:37)
[2019-05-04] MEDS ORDERED: Dextrose Gel 15 GM/37.5 ML TUBE PO PRN ×2 (16:37)
[2019-05-04] MEDS ORDERED: D5% in Water 1,000 ML IVC ONE (16:42)
[2019-05-04] MEDS: D5% in 0.9% NACL 1,000 ML IVC SCH (16:45)
[2019-05-04 17:00] LABS: ABG Base Excess 4 mEq/L (-2 to 3); ABG HCO3 31 mEq/L (21-27); ABG Oxygen Saturation 89 % (95-98); ABG PCO2 58 mmHg (35-45); ABG PH 7.34 pH Units (7.32-7.45); ABG PO2 62 mmHg (85-104); ABG TCO2 33 mEq/L (20-26)
[2019-05-04 18:42] LABS: BUN/Creatinine Ratio 7 (6-26); Blood Urea Nitrogen 5 mg/dL (8-23); Calcium 8.7 mg/dL (8.6-10.3); Carbon Dioxide 32 mEq/L (23-29); Chloride 88 mEq/L (98-107); Glucose 134 mg/dL (70-105); Osmolality,Calculated 263 (280-300); Potassium 3.4 mEq/L (3.5-5.1); Sodium 127 mEq/L (136-145); eGFR For African Americans > 60 (> 60); eGFR For Non-African Americans > 60 (> 60)
[2019-05-04] MEDS: *HR* Heparin 5,000 UNIT/ML VIAL SQ SCH (18:57)
[2019-05-04] MEDS: Budesonide/Formoterol 80/4.5 1 PUFF INH IH SCH (21:00)
[2019-05-04] MEDS ORDERED: Divalproex (12 HR) 500 MG TABLET PO SCH (21:00)
[2019-05-04] MEDS: Lactulose Oral Soln 20 GM/30 ML UDC PO SCH (23:25)
[2019-05-04] MEDS: diazePAM 5 MG TABLET PO SCH (23:26)
[2019-05-04] MEDS: rOPINIRole 1 MG TABLET PO SCH (23:29)
[2019-05-05] MEDS: D5% in 0.9% NACL 1,000 ML IVC SCH ×2 (04:41→16:44)
[2019-05-05] MEDS: *HR* Heparin 5,000 UNIT/ML VIAL SQ SCH ×2 (04:47→16:47)
[2019-05-05 05:36] LABS: Eosinophils % 0.5 %; Hemoglobin 11.7 g/dL (11.5-15.4); Immature Granulocytes % 0.8 % (0-4); Lymphocytes # 1.2 K/mcL (0.6-4.6); Lymphocytes % 29.6 %; Mean Corpuscular HGB Conc 35.5 g/dL (31.6-35.5); Mean Corpuscular Volume 98.8 fL (83.0-100.0); Mean Platelet Volume 10.3 fL (9.4-12.4); Monocytes # 0.5 K/mcL (0.0-1.3); Monocytes % 13.6 %; Neutrophils # 2.2 K/mcL (1.6-8.9); Platelet Count 149 K/mcL (140-400); Red Blood Count 3.34 M/mcL (3.82-4.97); Red Cell Distribution Width 13.2 % (11.5-14.5); Segmented Neutrophils % 55.5 %
[2019-05-05 05:56] LABS: BUN/Creatinine Ratio 6 (6-26); Blood Urea Nitrogen 4 mg/dL (8-23); Calcium 8.9 mg/dL (8.6-10.3); Carbon Dioxide 35 mEq/L (23-29); Chloride 89 mEq/L (98-107); Glucose 92 mg/dL (70-105); Osmolality,Calculated 265 (280-300); Potassium 3.7 mEq/L (3.5-5.1); Sodium 129 mEq/L (136-145); eGFR For African Americans > 60 (> 60); eGFR For Non-African Americans > 60 (> 60)
[2019-05-05] MEDS: Budesonide/Formoterol 80/4.5 1 PUFF INH IH SCH ×2 (08:19→20:27)
[2019-05-05] MEDS: Metoprolol XL (24 HR) Succ 25 MG TAB.ER.24H PO SCH (10:23)
[2019-05-05] MEDS: Lactulose Oral Soln 20 GM/30 ML UDC PO SCH ×2 (10:23→20:31)
[2019-05-05] MEDS: Fluticasone Propionate Nasal 50 MCG/SPRAY BOTTLE NS SCH (10:24)
[2019-05-05] MEDS: diazePAM 5 MG TABLET PO SCH ×3 (10:28→20:30)
[2019-05-05] MEDS: rOPINIRole 1 MG TABLET PO SCH (20:30)
[2019-05-06] MEDS: D5% in 0.9% NACL 1,000 ML IVC SCH ×2 (02:51→14:08)
[2019-05-06 04:39] LABS: Basophils % 0.3 %; Eosinophils % 0.8 %; Hematocrit 29.2 % (35.3-44.9); Immature Granulocytes % 0.3 % (0-4); Lymphocytes # 1.2 K/mcL (0.6-4.6); Mean Corpuscular HGB Conc 34.6 g/dL (31.6-35.5); Mean Corpuscular Hemoglobin 35.1 pg (28.0-33.3); Mean Corpuscular Volume 101.4 fL (83.0-100.0); Mean Platelet Volume 10.8 fL (9.4-12.4); Monocytes # 0.5 K/mcL (0.0-1.3); Platelet Count 126 K/mcL (140-400); Red Blood Count 2.88 M/mcL (3.82-4.97); Red Cell Distribution Width 13.1 % (11.5-14.5); Segmented Neutrophils % 53.6 %; White Blood Count 3.8 K/mcL (4.3-11.1)
[2019-05-06 04:40] LABS: Hemoglobin 10.1 g/dL (11.5-15.4)
[2019-05-06 04:53] LABS: BUN/Creatinine Ratio 6 (6-26); Blood Urea Nitrogen 3 mg/dL (8-23); Calcium 8.4 mg/dL (8.6-10.3); Carbon Dioxide 30 mEq/L (23-29); Chloride 99 mEq/L (98-107); Glucose 197 mg/dL (70-105); Osmolality,Calculated 280 (280-300); Sodium 134 mEq/L (136-145); eGFR For African Americans > 60 (> 60); eGFR For Non-African Americans > 60 (> 60)
[2019-05-06] MEDS: *HR* Heparin 5,000 UNIT/ML VIAL SQ SCH ×2 (06:51→17:48)
[2019-05-06] MEDS: Budesonide/Formoterol 80/4.5 1 PUFF INH IH SCH ×2 (07:50→22:33)
[2019-05-06] MEDS: diazePAM 5 MG TABLET PO SCH ×3 (08:17→19:49)
[2019-05-06] MEDS: Fluticasone Propionate Nasal 50 MCG/SPRAY BOTTLE NS SCH (08:17)
[2019-05-06] MEDS: Metoprolol XL (24 HR) Succ 25 MG TAB.ER.24H PO SCH (08:17)
[2019-05-06] MEDS: Lactulose Oral Soln 20 GM/30 ML UDC PO SCH ×2 (08:17→19:49)
[2019-05-06] MEDS: Valproic Acid INJ 500 MG in 0.9 % Sodium Chloride 100 ML IVPB SCH ×2 (10:01→15:50)
[2019-05-06] MEDS: traMADol 50 MG TABLET PO PRN (14:05)
[2019-05-06] MEDS: Gabapentin 400 MG CAPSULE PO SCH (19:49)
[2019-05-06] MEDS: rOPINIRole 1 MG TABLET PO SCH (19:49)
[2019-05-07] MEDS: Valproic Acid INJ 500 MG in 0.9 % Sodium Chloride 100 ML IVPB SCH (00:16)
[2019-05-07 05:09] LABS: Basophils % 0.4 %; Eosinophils # 0.1 K/mcL (0.0-0.6); Eosinophils % 2.3 %; Hematocrit 32.4 % (35.3-44.9); Hemoglobin 10.5 g/dL (11.5-15.4); Immature Granulocytes % 1.5 % (0-4); Lymphocytes # 1.9 K/mcL (0.6-4.6); Lymphocytes % 35.7 %; Mean Corpuscular HGB Conc 32.4 g/dL (31.6-35.5); Mean Corpuscular Hemoglobin 34.3 pg (28.0-33.3); Mean Corpuscular Volume 105.9 fL (83.0-100.0); Mean Platelet Volume 10.6 fL (9.4-12.4); Monocytes # 0.7 K/mcL (0.0-1.3); Monocytes % 12.9 %; Neutrophils # 2.5 K/mcL (1.6-8.9); Platelet Count 138 K/mcL (140-400); Red Blood Count 3.06 M/mcL (3.82-4.97); Red Cell Distribution Width 13.6 % (11.5-14.5); Segmented Neutrophils % 47.2 %; White Blood Count 5.2 K/mcL (4.3-11.1)
[2019-05-07 05:29] LABS: % Iron Saturation 19 % (15-50); Iron 66 mcg/dL (50-170); Transferrin 252 mg/dL (203-362)
[2019-05-07 05:32] LABS: BUN/Creatinine Ratio 10 (6-26); Blood Urea Nitrogen 6 mg/dL (8-23); Carbon Dioxide 31 mEq/L (23-29); Chloride 94 mEq/L (98-107); Glucose 102 mg/dL (70-105); Osmolality,Calculated 272 (280-300); Potassium 4.5 mEq/L (3.5-5.1); Sodium 132 mEq/L (136-145); eGFR For African Americans > 60 (> 60); eGFR For Non-African Americans > 60 (> 60)
[2019-05-07 05:47] LABS: Ferritin 156 ng/mL (10-120)
[2019-05-07 05:53] LABS: Folate 12.7 ng/mL (3.0-16.0)
[2019-05-07] MEDS: *HR* Heparin 5,000 UNIT/ML VIAL SQ SCH ×2 (06:16→17:16)
[2019-05-07] MEDS: Budesonide/Formoterol 80/4.5 1 PUFF INH IH SCH ×2 (08:48→22:46)
[2019-05-07] MEDS: Lactulose Oral Soln 20 GM/30 ML UDC PO SCH (09:32)
[2019-05-07] MEDS: Gabapentin 300 MG CAPSULE PO SCH (09:33)
[2019-05-07] MEDS: diazePAM 5 MG TABLET PO SCH ×3 (09:33→23:13)
[2019-05-07] MEDS: Fluticasone Propionate Nasal 50 MCG/SPRAY BOTTLE NS SCH (09:33)
[2019-05-07] MEDS: Metoprolol XL (24 HR) Succ 25 MG TAB.ER.24H PO SCH (09:33)
[2019-05-07 19:55] LABS: Hepatitis B Surface Antigen Nonreactive (Nonreactive)
[2019-05-07 20:19] LABS: Hepatitis C Virus Antibody Nonreactive (Nonreactive)
[2019-05-07 20:39] LABS: Hepatitis A Antibody IgM Nonreactive (Nonreactive)
[2019-05-07] MEDS ORDERED: Divalproex (24 HR) 500 MG TABLET PO SCH (21:00)
[2019-05-07] MEDS: rOPINIRole 1 MG TABLET PO SCH (23:12)
[2019-05-07] MEDS: Gabapentin 400 MG CAPSULE PO SCH (23:13)
[2019-05-07] MEDS: traMADol 50 MG TABLET PO PRN (23:13)
[2019-05-07 23:43] LABS: Hepatitis B Core IgM Nonreactive (Nonreactive)
[2019-05-08] MEDS: *HR* Heparin 5,000 UNIT/ML VIAL SQ SCH (06:30)
[2019-05-08 07:08] LABS: BUN/Creatinine Ratio 17 (6-26); Blood Urea Nitrogen 11 mg/dL (8-23); Calcium 9.3 mg/dL (8.6-10.3); Carbon Dioxide 30 mEq/L (23-29); Chloride 92 mEq/L (98-107); Glucose 158 mg/dL (70-105); Osmolality,Calculated 267 (280-300); Potassium 4.8 mEq/L (3.5-5.1); Sodium 127 mEq/L (136-145); eGFR For African Americans > 60 (> 60); eGFR For Non-African Americans > 60 (> 60)
[2019-05-08] MEDS: Budesonide/Formoterol 80/4.5 1 PUFF INH IH SCH (07:39)
[2019-05-08] MEDS: diazePAM 5 MG TABLET PO SCH ×2 (08:17→15:27)
[2019-05-08] MEDS: Fluticasone Propionate Nasal 50 MCG/SPRAY BOTTLE NS SCH (08:18)
[2019-05-08] MEDS: Gabapentin 300 MG CAPSULE PO SCH (08:18)
[2019-05-08] MEDS: Metoprolol XL (24 HR) Succ 25 MG TAB.ER.24H PO SCH (08:18)
[2019-05-08 11:29] VITALS: BP 116/73
[2019-05-08] MEDS ORDERED: FLU Vac QV 19-20 (6Month+)/PF 0.5 ML SYRINGE IM ONE (15:13)
[2019-05-09 02:03] LABS: Valproate Free 23 ug/mL (7-23); Valproate Total 60 ug/mL (50-125)
[2019-05-09 09:44] LABS: Valproate % Free 39 % (5-18)
== END 2019-05-08 17:01 | DRG 92 ==
LOC: EMEROOARM 11:02 → 3BNU 11:02 → 2ANU 15:33 → SUATTDRO 05-05 13:45
PROVIDERS: ADMIT Internal Medicine; ATTEND Internal Medicine

== ENCOUNTER 2020-08-29 16:14 | Inpatient (IN) ==
[2020-08-29 16:59] LABS: Basophils % 0.1 %; Eosinophils % 0.3 %; Hematocrit 32.9 % (35.3-44.9); Hemoglobin 10.7 g/dL (11.5-15.4); Immature Granulocytes % 0.6 % (0-4); Lymphocytes % 7.4 %; Mean Corpuscular HGB Conc 32.5 g/dL (31.6-35.5); Mean Corpuscular Volume 101.5 fL (83.0-100.0); Mean Platelet Volume 9.3 fL (9.4-12.4); Monocytes # 1.9 K/mcL (0.0-1.3); Monocytes % 13.5 %; Neutrophils # 10.9 K/mcL (1.6-8.9); Platelet Count 351 K/mcL (140-400); Red Blood Count 3.24 M/mcL (3.82-4.97); Red Cell Distribution Width 13.3 % (11.5-14.5); Segmented Neutrophils % 78.1 %
[2020-08-29 17:19] LABS: BUN/Creatinine Ratio 24 (6-26); Blood Urea Nitrogen 17 mg/dL (8-23); Calcium 9.6 mg/dL (8.6-10.3); Carbon Dioxide 31 mEq/L (23-29); Chloride 89 mEq/L (98-107); Glucose 142 mg/dL (70-105); Osmolality,Calculated 268 (280-300); Potassium 3.6 mEq/L (3.5-5.1); Sodium 127 mEq/L (136-145); eGFR For African Americans > 60 (> 60); eGFR For Non-African Americans > 60 (> 60)
[2020-08-29] MEDS ORDERED: Piperacillin/Tazobactam 3.375 GM in Water for inj. (sterile) 20 ML IVP ONE (17:26)
[2020-08-29 18:13] LABS: INR 1.5; Prothrombin Time 16.6 Seconds (9.4-12.1)
[2020-08-29 18:16] LABS: Activated Partial Thrombo Time 45.6 Seconds (26.0-36.0)
[2020-08-29] MEDS: 0.9 % Sodium Chloride 1,000 ML IVC SCH ×2 (18:20→20:27)
[2020-08-29 18:29] LABS: Alanine Aminotransferase 13 Units/L (7-52); Albumin 3.7 g/dL (3.5-5.7); Albumin/Globulin Ratio 1.1 (1.1-2.2); Alkaline Phosphatase 46 Units/L (34-104); Aspartate Amino Transferase 38 Units/L (13-39); Bilirubin,Direct 0.1 mg/dL (0.0-0.2); Bilirubin,Indirect 0.2 mg/dL (0.0-1.0); Bilirubin,Total 0.3 mg/dL (0.3-1.0); Globulin 3.3 g/dL (2.4-3.5); Magnesium 1.8 mg/dL (1.6-2.6); Phosphorous 3.2 mg/dL (2.7-4.5); Troponin I < 0.03 ng/mL (< 0.04)
[2020-08-29 18:59] LABS: Bilirubin,Urine Negative (Negative); Blood,Urine Negative (Negative); Clarity,Urine Clear (Clear); Color,Urine Light-Yellow (Yellow); Glucose,Urine (UA) Normal (Normal); Ketones,Urine Negative (Negative); Leukocyte Esterase,Urine Negative (Negative); Nitrite,Urine Negative (Negative); PH,Urine 5.5 pH Units (5.0-8.0); Protein,Urine Negative (Neg-Trace); Specific Gravity,Urine 1.017 (1.010-1.025); Urobilinogen,Urine Normal (Normal)
[2020-08-29 19:18] LABS: C-Reactive Protein > 300 mg/L (Less than 10)
[2020-08-29] MEDS ORDERED: Isovue-370 500 ML BOTTLE IVP ONE (19:34)
[2020-08-29] MEDS ORDERED: Tdap (Boostrix) Vaccine 0.5 ML SYRINGE IM ONE (20:36)
[2020-08-29] MEDS ORDERED: Ondansetron ODT 4 MG TAB.RAPDIS SL PRN (22:59)
[2020-08-29] MEDS ORDERED: Acetaminophen 325 MG TABLET PO PRN (22:59)
[2020-08-29] MEDS ORDERED: Naloxone 0.4 MG/ML INJ IVP PRN (22:59)
[2020-08-30] MEDS: Nicotine 21 MG PATCH.TD24 TD SCH ×2 (00:14→09:05)
[2020-08-30] MEDS ORDERED: Dextrose Gel 15 GM/37.5 ML TUBE PO PRN ×2 (00:51)
[2020-08-30] MEDS ORDERED: D5% in Water 1,000 ML IVC PRN (00:51)
[2020-08-30] MEDS ORDERED: *HR* Dextrose 50 % in Water (Vial) 50 ML VIAL IVP PRN (00:51)
[2020-08-30] MEDS: Piperacillin/Tazobactam 3.375 GM in 0.9 % Sodium Chloride Mini Bag 100 ML IVPB SCH ×4 (01:04→23:17)
[2020-08-30] MEDS: Divalproex (24 HR) 500 MG TABLET PO SCH ×2 (01:04→01:29)
[2020-08-30] MEDS: diazePAM 5 MG TABLET PO SCH ×5 (01:04→20:18)
[2020-08-30] MEDS: 0.9 % Sodium Chloride 1,000 ML IVC SCH ×2 (01:04→09:07)
[2020-08-30] MEDS: Insulin LISPRO 300 UNITS/3 ML VIAL SUBQ SCH ×4 (01:22→17:35)
[2020-08-30] MEDS: *HR* HYDROcodone/Acet 5/325 mg TABLET PO PRN ×3 (03:42→23:17)
[2020-08-30 06:08] LABS: Basophils % 0.1 %; Eosinophils # 0.1 K/mcL (0.0-0.6); Eosinophils % 0.5 %; Hematocrit 28.1 % (35.3-44.9); Immature Granulocytes % 0.6 % (0-4); Lymphocytes # 0.8 K/mcL (0.6-4.6); Lymphocytes % 8.2 %; Mean Corpuscular HGB Conc 32.4 g/dL (31.6-35.5); Mean Corpuscular Hemoglobin 32.7 pg (28.0-33.3); Mean Corpuscular Volume 101.1 fL (83.0-100.0); Mean Platelet Volume 9.5 fL (9.4-12.4); Monocytes # 1.5 K/mcL (0.0-1.3); Monocytes % 15.7 %; Neutrophils # 6.9 K/mcL (1.6-8.9); Platelet Count 290 K/mcL (140-400); Red Blood Count 2.78 M/mcL (3.82-4.97); Red Cell Distribution Width 13.2 % (11.5-14.5); Segmented Neutrophils % 74.9 %; White Blood Count 9.3 K/mcL (4.3-11.1)
[2020-08-30 06:09] LABS: Hemoglobin 9.1 g/dL (11.5-15.4)
[2020-08-30 06:16] LABS: INR 1.5
[2020-08-30 06:26] LABS: BUN/Creatinine Ratio 21 (6-26); Blood Urea Nitrogen 13 mg/dL (8-23); Calcium 8.7 mg/dL (8.6-10.3); Carbon Dioxide 26 mEq/L (23-29); Chloride 101 mEq/L (98-107); Glucose 103 mg/dL (70-105); Osmolality,Calculated 278 (280-300); Potassium 3.5 mEq/L (3.5-5.1); Sodium 134 mEq/L (136-145); eGFR For African Americans > 60 (> 60); eGFR For Non-African Americans > 60 (> 60)
[2020-08-30 08:15] LABS: C-Reactive Protein 244 mg/L (Less than 10)
[2020-08-30] MEDS: Budesonide/Formoterol 80/4.5 1 PUFF INH IH SCH ×2 (08:37→22:17)
[2020-08-30] MEDS ORDERED: Metoprolol XL (24 HR) Succ 25 MG TAB.ER.24H PO SCH (09:00)
[2020-08-30] MEDS: Vitamin B Complex/Vit C/Vit E 1 EACH TABLET PO SCH (09:06)
[2020-08-30] MEDS: Cholecalciferol (D-3) 1,000 UNIT (25MCG) TABLET PO SCH (09:06)
[2020-08-30] MEDS: Ascorbic Acid 500 MG TABLET PO SCH (09:06)
[2020-08-30] MEDS: Gabapentin 300 MG CAPSULE PO SCH (09:06)
[2020-08-30] MEDS: Potassium Chloride Elixir 20 MEQ/15 ML UDC PO SCH (09:08)
[2020-08-30] MEDS: Fluticasone Propionate Nasal 50 MCG/SPRAY BOTTLE NS SCH (09:09)
[2020-08-30] MEDS: Ipratropium/Albuterol Neb 3 ML IH SCH ×2 (16:06→22:17)
[2020-08-30] MEDS ORDERED: Gabapentin 400 MG CAPSULE PO SCH (20:00)
[2020-08-30] MEDS ORDERED: Divalproex (24 HR) 500 MG TABLET PO SCH (21:00)
[2020-08-30] MEDS ORDERED: rOPINIRole 1 MG TABLET PO SCH (21:00)
[2020-08-30] MEDS ORDERED: Insulin LISPRO 300 UNITS/3 ML VIAL SUBQ SCH (21:00)
[2020-08-30] MEDS ORDERED: OLANZapine 5 MG TAB.RAPDIS PO SCH (21:00)
[2020-08-31] MEDS: Ipratropium/Albuterol Neb 3 ML IH SCH ×4 (03:35→22:21)
[2020-08-31 06:09] LABS: Hematocrit 24.2 % (35.3-44.9); Hemoglobin 7.7 g/dL (11.5-15.4); Mean Corpuscular HGB Conc 31.8 g/dL (31.6-35.5); Mean Corpuscular Hemoglobin 32.8 pg (28.0-33.3); Mean Platelet Volume 9.8 fL (9.4-12.4); Platelet Count 265 K/mcL (140-400); Red Blood Count 2.35 M/mcL (3.82-4.97); Red Cell Distribution Width 13.4 % (11.5-14.5); White Blood Count 6.7 K/mcL (4.3-11.1)
[2020-08-31 06:31] LABS: BUN/Creatinine Ratio 21 (6-26); Blood Urea Nitrogen 13 mg/dL (8-23); Calcium 8.5 mg/dL (8.6-10.3); Carbon Dioxide 27 mEq/L (23-29); Chloride 103 mEq/L (98-107); Glucose 112 mg/dL (70-105); Osmolality,Calculated 283 (280-300); Potassium 3.3 mEq/L (3.5-5.1); Sodium 136 mEq/L (136-145); eGFR For African Americans > 60 (> 60); eGFR For Non-African Americans > 60 (> 60)
[2020-08-31] MEDS ORDERED: Vancomycin 1,250 MG/262.5 ML IV.SOLN IVPB SCH (07:00)
[2020-08-31 07:05] LABS: Basophils % 0.2 %; Eosinophils # 0.1 K/mcL (0.0-0.6); Eosinophils % 1.7 %; Hematocrit 23.6 % (35.3-44.9); Hemoglobin 7.5 g/dL (11.5-15.4); Immature Granulocytes % 0.5 % (0-4); Lymphocytes # 1.2 K/mcL (0.6-4.6); Lymphocytes % 18.4 %; Mean Corpuscular HGB Conc 31.8 g/dL (31.6-35.5); Mean Corpuscular Hemoglobin 32.1 pg (28.0-33.3); Mean Corpuscular Volume 100.9 fL (83.0-100.0); Mean Platelet Volume 9.6 fL (9.4-12.4); Monocytes # 0.6 K/mcL (0.0-1.3); Neutrophils # 4.4 K/mcL (1.6-8.9); Platelet Count 268 K/mcL (140-400); Red Blood Count 2.34 M/mcL (3.82-4.97); Red Cell Distribution Width 13.4 % (11.5-14.5); Segmented Neutrophils % 69.2 %; White Blood Count 6.3 K/mcL (4.3-11.1)
[2020-08-31] MEDS ORDERED: Ondansetron 4 MG/2 ML VIAL ONE (07:28)
[2020-08-31] MEDS ORDERED: Lidocaine -MPF 2% 2 ML VIAL ONE (07:28)
[2020-08-31] MEDS ORDERED: *HR* FentaNYL (PF) 100 MCG/2 ML VIAL ONE (07:29)
[2020-08-31] MEDS: Fluticasone Propionate Nasal 50 MCG/SPRAY BOTTLE NS SCH (07:39)
[2020-08-31] MEDS: Piperacillin/Tazobactam 3.375 GM in 0.9 % Sodium Chloride Mini Bag 100 ML IVPB SCH ×3 (07:39→18:18)
[2020-08-31] MEDS: Cholecalciferol (D-3) 1,000 UNIT (25MCG) TABLET PO SCH (07:40)
[2020-08-31] MEDS: Nicotine 21 MG PATCH.TD24 TD SCH (07:40)
[2020-08-31] MEDS: Potassium Chloride Elixir 20 MEQ/15 ML UDC PO SCH (07:40)
[2020-08-31] MEDS: Vitamin B Complex/Vit C/Vit E 1 EACH TABLET PO SCH (07:40)
[2020-08-31] MEDS: diazePAM 5 MG TABLET PO SCH ×3 (07:40→19:42)
[2020-08-31] MEDS: Ascorbic Acid 500 MG TABLET PO SCH (07:40)
[2020-08-31] MEDS: Gabapentin 300 MG CAPSULE PO SCH (07:40)
[2020-08-31] MEDS: Insulin LISPRO 300 UNITS/3 ML VIAL SUBQ SCH ×4 (07:44→19:41)
[2020-08-31] MEDS ORDERED: Albumin Human 5% 12.5 GM/250 ML IV.SOLN ONE (07:46)
[2020-08-31] MEDS ORDERED: Acetaminophen IV 1,000 MG/100 ML BAG IVPB ONE (07:46)
[2020-08-31] MEDS ORDERED: *HR* Vasopressin 20 UNIT/ML VIAL ONE (07:46)
[2020-08-31] MEDS ORDERED: Bupivacaine/Clonidine Syringe 20 ML, Syringe LUER-LOK 1 EACH TP ONE (08:00)
[2020-08-31] MEDS ORDERED: Potassium Chloride 20 MEQ, Lidocaine 1% 2 ML in 0.9 % Sodium Chloride 250 ML IVPB ONE ×2 (08:02→09:48)
[2020-08-31] MEDS ORDERED: *HR* HYDROmorphone PF 0.5 MG/0.5 ML SYRINGE IVP PRN (08:45)
[2020-08-31] MEDS ORDERED: Ondansetron 4 MG/2 ML VIAL IVP PRN (08:45)
[2020-08-31] MEDS ORDERED: *HR* Dextrose 50 % in Water (Vial) 50 ML VIAL IVP PRN (09:48)
[2020-08-31] MEDS ORDERED: D5% in Water 1,000 ML IVC PRN (09:48)
[2020-08-31] MEDS ORDERED: Acetaminophen 325 MG TABLET PO PRN (09:48)
[2020-08-31] MEDS ORDERED: Dextrose Gel 15 GM/37.5 ML TUBE PO PRN ×2 (09:48)
[2020-08-31] MEDS ORDERED: Ondansetron ODT 4 MG TAB.RAPDIS SL PRN (09:48)
[2020-08-31] MEDS ORDERED: Naloxone 0.4 MG/ML INJ IVP PRN (09:48)
[2020-08-31] MEDS: Budesonide/Formoterol 80/4.5 1 PUFF INH IH SCH ×2 (10:08→22:21)
[2020-08-31] MEDS: *HR* HYDROcodone/Acet 5/325 mg TABLET PO PRN ×2 (11:16→17:05)
[2020-08-31 16:14] LABS: Hematocrit 25.8 % (35.3-44.9); Hemoglobin 8.4 g/dL (11.5-15.4); Mean Corpuscular HGB Conc 32.6 g/dL (31.6-35.5); Mean Corpuscular Hemoglobin 33.6 pg (28.0-33.3); Mean Corpuscular Volume 103.2 fL (83.0-100.0); Mean Platelet Volume 10.1 fL (9.4-12.4); Platelet Count 317 K/mcL (140-400); Red Cell Distribution Width 13.2 % (11.5-14.5); White Blood Count 7.2 K/mcL (4.3-11.1)
[2020-08-31] MEDS: Vancomycin 1,250 MG/262.5 ML IV.SOLN IVPB SCH (18:19)
[2020-08-31] MEDS: Divalproex (24 HR) 500 MG TABLET PO SCH (19:41)
[2020-08-31] MEDS: Gabapentin 400 MG CAPSULE PO SCH (19:41)
[2020-08-31] MEDS: rOPINIRole 1 MG TABLET PO SCH (19:42)
[2020-08-31] MEDS: OLANZapine 5 MG TAB.RAPDIS PO SCH (19:42)
[2020-08-31] MEDS ORDERED: Gabapentin 400 MG CAPSULE PO SCH (20:00)
[2020-08-31] MEDS ORDERED: Divalproex (12 HR) 500 MG TABLET PO SCH (21:00)
[2020-08-31] MEDS ORDERED: OLANZAPINE 7.5 MG PO SCH (21:00)
[2020-09-01] MEDS: *HR* HYDROcodone/Acet 5/325 mg TABLET PO PRN ×4 (00:34→22:05)
[2020-09-01] MEDS: Piperacillin/Tazobactam 3.375 GM in 0.9 % Sodium Chloride Mini Bag 100 ML IVPB SCH ×3 (02:16→19:36)
[2020-09-01 02:41] LABS: Hematocrit 26.8 % (35.3-44.9); Hemoglobin 8.4 g/dL (11.5-15.4); Mean Corpuscular HGB Conc 31.3 g/dL (31.6-35.5); Mean Corpuscular Hemoglobin 32.4 pg (28.0-33.3); Mean Corpuscular Volume 103.5 fL (83.0-100.0); Mean Platelet Volume 10.1 fL (9.4-12.4); Platelet Count 347 K/mcL (140-400); Red Blood Count 2.59 M/mcL (3.82-4.97); Red Cell Distribution Width 13.1 % (11.5-14.5); White Blood Count 7.3 K/mcL (4.3-11.1)
[2020-09-01 02:53] LABS: BUN/Creatinine Ratio 18 (6-26); Blood Urea Nitrogen 11 mg/dL (8-23); Carbon Dioxide 26 mEq/L (23-29); Chloride 98 mEq/L (98-107); Glucose 209 mg/dL (70-105); Magnesium 1.8 mg/dL (1.6-2.6); Osmolality,Calculated 280 (280-300); Potassium 3.9 mEq/L (3.5-5.1); Sodium 132 mEq/L (136-145); eGFR For African Americans > 60 (> 60); eGFR For Non-African Americans > 60 (> 60)
[2020-09-01] MEDS: Ipratropium/Albuterol Neb 3 ML IH SCH ×4 (04:55→21:45)
[2020-09-01] MEDS: Vitamin B Complex/Vit C/Vit E 1 EACH TABLET PO SCH (07:36)
[2020-09-01] MEDS: Gabapentin 300 MG CAPSULE PO SCH (07:36)
[2020-09-01] MEDS: Cholecalciferol (D-3) 1,000 UNIT (25MCG) TABLET PO SCH (07:36)
[2020-09-01] MEDS: diazePAM 5 MG TABLET PO SCH ×3 (07:36→19:35)
[2020-09-01] MEDS: Ascorbic Acid 500 MG TABLET PO SCH (07:37)
[2020-09-01] MEDS: Vancomycin 1,250 MG/262.5 ML IV.SOLN IVPB SCH ×2 (07:37→19:36)
[2020-09-01] MEDS: Nicotine 21 MG PATCH.TD24 TD SCH (07:37)
[2020-09-01] MEDS: Insulin LISPRO 300 UNITS/3 ML VIAL SUBQ SCH ×4 (07:38→22:01)
[2020-09-01] MEDS: Potassium Chloride Elixir 20 MEQ/15 ML UDC PO SCH (07:38)
[2020-09-01] MEDS: Fluticasone Propionate Nasal 50 MCG/SPRAY BOTTLE NS SCH (07:39)
[2020-09-01] MEDS: Budesonide/Formoterol 80/4.5 1 PUFF INH IH SCH ×2 (10:49→21:45)
[2020-09-01] MEDS: Gabapentin 400 MG CAPSULE PO SCH (19:35)
[2020-09-01] MEDS: rOPINIRole 1 MG TABLET PO SCH (19:35)
[2020-09-01] MEDS: OLANZapine 5 MG TAB.RAPDIS PO SCH (19:35)
[2020-09-01] MEDS: Divalproex (24 HR) 500 MG TABLET PO SCH (19:35)
[2020-09-02 01:53] LABS: Basophils % 0.4 %; Eosinophils # 0.2 K/mcL (0.0-0.6); Eosinophils % 2.5 %; Hematocrit 26.7 % (35.3-44.9); Hemoglobin 8.5 g/dL (11.5-15.4); Immature Granulocytes % 0.8 % (0-4); Lymphocytes # 1.4 K/mcL (0.6-4.6); Lymphocytes % 14.6 %; Mean Corpuscular HGB Conc 31.8 g/dL (31.6-35.5); Mean Corpuscular Hemoglobin 32.3 pg (28.0-33.3); Mean Corpuscular Volume 101.5 fL (83.0-100.0); Mean Platelet Volume 9.9 fL (9.4-12.4); Monocytes % 10.4 %; Neutrophils # 6.7 K/mcL (1.6-8.9); Platelet Count 392 K/mcL (140-400); Red Blood Count 2.63 M/mcL (3.82-4.97); Red Cell Distribution Width 13.4 % (11.5-14.5); Segmented Neutrophils % 71.3 %; White Blood Count 9.3 K/mcL (4.3-11.1)
[2020-09-02 02:15] LABS: BUN/Creatinine Ratio 18 (6-26); Blood Urea Nitrogen 11 mg/dL (8-23); Carbon Dioxide 26 mEq/L (23-29); Chloride 101 mEq/L (98-107); Glucose 119 mg/dL (70-105); Osmolality,Calculated 283 (280-300); Potassium 4.2 mEq/L (3.5-5.1); Sodium 136 mEq/L (136-145); eGFR For African Americans > 60 (> 60); eGFR For Non-African Americans > 60 (> 60)
[2020-09-02] MEDS: Piperacillin/Tazobactam 3.375 GM in 0.9 % Sodium Chloride Mini Bag 100 ML IVPB SCH ×3 (03:03→19:29)
[2020-09-02] MEDS: Ipratropium/Albuterol Neb 3 ML IH SCH ×4 (03:43→21:57)
[2020-09-02] MEDS: Vancomycin 1,250 MG/262.5 ML IV.SOLN IVPB SCH ×2 (07:44→19:29)
[2020-09-02] MEDS: Insulin LISPRO 300 UNITS/3 ML VIAL SUBQ SCH ×4 (08:04→19:24)
[2020-09-02] MEDS: Nicotine 21 MG PATCH.TD24 TD SCH (09:26)
[2020-09-02] MEDS: Gabapentin 300 MG CAPSULE PO SCH (09:28)
[2020-09-02] MEDS: Cholecalciferol (D-3) 1,000 UNIT (25MCG) TABLET PO SCH (09:28)
[2020-09-02] MEDS: Potassium Chloride Elixir 20 MEQ/15 ML UDC PO SCH (09:29)
[2020-09-02] MEDS: Ascorbic Acid 500 MG TABLET PO SCH (09:29)
[2020-09-02] MEDS: diazePAM 5 MG TABLET PO SCH ×3 (09:29→19:30)
[2020-09-02] MEDS: Fluticasone Propionate Nasal 50 MCG/SPRAY BOTTLE NS SCH (09:29)
[2020-09-02] MEDS: Vitamin B Complex/Vit C/Vit E 1 EACH TABLET PO SCH (09:29)
[2020-09-02] MEDS: Budesonide/Formoterol 80/4.5 1 PUFF INH IH SCH ×2 (11:16→21:57)
[2020-09-02] MEDS: Divalproex (24 HR) 500 MG TABLET PO SCH (19:30)
[2020-09-02] MEDS: Gabapentin 400 MG CAPSULE PO SCH (19:30)
[2020-09-02] MEDS: rOPINIRole 1 MG TABLET PO SCH (19:30)
[2020-09-02] MEDS: *HR* HYDROcodone/Acet 5/325 mg TABLET PO PRN (19:30)
[2020-09-02] MEDS: OLANZapine 5 MG TAB.RAPDIS PO SCH (19:31)
[2020-09-03] MEDS: Piperacillin/Tazobactam 3.375 GM in 0.9 % Sodium Chloride Mini Bag 100 ML IVPB SCH (02:32)
[2020-09-03] MEDS: *HR* HYDROcodone/Acet 5/325 mg TABLET PO PRN ×2 (02:35→15:17)
[2020-09-03] MEDS: Ipratropium/Albuterol Neb 3 ML IH SCH ×3 (03:42→15:30)
[2020-09-03] MEDS: Gabapentin 300 MG CAPSULE PO SCH (08:10)
[2020-09-03] MEDS: Vitamin B Complex/Vit C/Vit E 1 EACH TABLET PO SCH (08:10)
[2020-09-03] MEDS: Ascorbic Acid 500 MG TABLET PO SCH (08:10)
[2020-09-03] MEDS: diazePAM 5 MG TABLET PO SCH ×2 (08:10→15:17)
[2020-09-03] MEDS: Cholecalciferol (D-3) 1,000 UNIT (25MCG) TABLET PO SCH (08:10)
[2020-09-03] MEDS: Vancomycin 1,250 MG/262.5 ML IV.SOLN IVPB SCH (08:11)
[2020-09-03] MEDS: Insulin LISPRO 300 UNITS/3 ML VIAL SUBQ SCH ×2 (08:12→13:04)
[2020-09-03] MEDS: Potassium Chloride Elixir 20 MEQ/15 ML UDC PO SCH (09:00)
[2020-09-03] MEDS: Fluticasone Propionate Nasal 50 MCG/SPRAY BOTTLE NS SCH (09:00)
[2020-09-03] MEDS: Nicotine 21 MG PATCH.TD24 TD SCH (10:19)
[2020-09-03] MEDS: Budesonide/Formoterol 80/4.5 1 PUFF INH IH SCH (10:32)
[2020-09-03] MEDS ORDERED: CeFAZolin 2 GM/120 ML BAG IVPB SCH ×2 (13:00→16:00)
[2020-09-03 15:47] LABS: Adenovirus Not Detected (Not Detect); Bordetella Pertussis Not Detected (Not Detect); Chlamydophila pneumoniae Not Detected (Not Detect); Coronavirus 229E Not Detected (Not Detect); Coronavirus HKU1 Not Detected (Not Detect); Coronavirus NL63 Not Detected (Not Detect); Coronavirus OC43 Not Detected (Not Detect); Human Metapneumovirus Not Detected (Not Detect); Human Rhinovirus/Enterovirus Not Detected (Not Detect); Influenza A Subtype 2009 H1 Not Detected (Not Detect); Influenza B Not Detected (Not Detect); Mycoplasma pneumoniae Not Detected (Not Detect); Parainfluenza Virus 1 Not Detected (Not Detect); Parainfluenza Virus 2 Not Detected (Not Detect); Parainfluenza Virus 3 Not Detected (Not Detect); Parainfluenza Virus 4 Not Detected (Not Detect); Respiratory Syncytial Virus Not Detected (Not Detect); SARS-CoV-2 Not Detected (Not Detect)
[2020-09-03 16:20] VITALS: BP 118/68
== END 2020-09-03 17:30 | DRG 854 ==
LOC: EMEROOARM 16:14 → 3NENU 16:14 → SUATTDRO 22:11 → 3NENU 22:48
PROVIDERS: ADMIT Student in an Organized Health Care Education/Training Program; ATTEND Internal Medicine

== ENCOUNTER 2021-04-16 22:43 | Inpatient (IN) ==
[2021-04-17] MEDS ORDERED: Naloxone 0.4 MG/ML INJ IVP PRN (02:05)
[2021-04-17] MEDS ORDERED: *HR* Dextrose 50 % in Water (Syg) 50 ML SYRINGE IVP ONE (02:15)
[2021-04-17] MEDS ORDERED: Artificial Tears SOLN 15 ML BOTTLE BOTH EYES PRN (03:59)
[2021-04-17 04:23] LABS: ABG Base Excess 0 mEq/L (-2 to 3); ABG HCO3 24 mEq/L (21-27); ABG Oxygen Saturation 96 % (95-98); ABG PCO2 39 mmHg (35-45); ABG PH 7.41 pH Units (7.32-7.45); ABG PO2 82 mmHg (85-104); ABG TCO2 26 mEq/L (20-26); Blood Gas Modality ASSIST CONTROL; Blood Gas VT 380 cc
[2021-04-17 04:50] LABS: Basophils % 0.1 %; Eosinophils % 0.2 %; Hematocrit 30.5 % (35.3-44.9); Hemoglobin 10.6 g/dL (11.5-15.4); Immature Granulocytes % 0.6 % (0-4); Lymphocytes % 9.8 %; Mean Corpuscular HGB Conc 34.8 g/dL (31.6-35.5); Mean Corpuscular Hemoglobin 33.5 pg (28.0-33.3); Mean Corpuscular Volume 96.5 fL (83.0-100.0); Monocytes # 0.9 K/mcL (0.0-1.3); Monocytes % 8.9 %; Neutrophils # 7.8 K/mcL (1.6-8.9); Platelet Count 230 K/mcL (140-400); Red Blood Count 3.16 M/mcL (3.82-4.97); Red Cell Distribution Width 13.9 % (11.5-14.5); Segmented Neutrophils % 80.4 %; White Blood Count 9.7 K/mcL (4.3-11.1)
[2021-04-17 05:00] LABS: Prothrombin Time 33.1 Seconds (9.4-12.1)
[2021-04-17 05:02] LABS: Alanine Aminotransferase 15 Units/L (7-52); Albumin 3.3 g/dL (3.5-5.7); Albumin/Globulin Ratio 1.6 (1.1-2.2); Alkaline Phosphatase 59 Units/L (34-104); Aspartate Amino Transferase 37 Units/L (13-39); BUN/Creatinine Ratio 25 (6-26); Bilirubin,Total 0.3 mg/dL (0.3-1.0); Blood Urea Nitrogen 19 mg/dL (8-23); Calcium 8.1 mg/dL (8.6-10.3); Carbon Dioxide 24 mEq/L (23-29); Chloride 97 mEq/L (98-107); Creatine Kinase 636 Units/L (30-223); Globulin 2.1 g/dL (2.4-3.5); Glucose 157 mg/dL (70-105); Osmolality,Calculated 282 (280-300); Potassium 2.6 mEq/L (3.5-5.1); Sodium 133 mEq/L (136-145); Total Protein 5.4 g/dL (6.4-8.9); eGFR For African Americans > 60 (> 60); eGFR For Non-African Americans > 60 (> 60)
[2021-04-17 05:04] LABS: Troponin I < 0.03 ng/mL (< 0.04)
[2021-04-17] MEDS ORDERED: 0.9 % Sodium Chloride 1,000 ML IVC ONE (05:05)
[2021-04-17] MEDS: Artificial Tears SOLN 15 ML BOTTLE BOTH EYES SCH ×5 (05:25→19:45)
[2021-04-17 05:48] LABS: Magnesium 1.2 mg/dL (1.6-2.6)
[2021-04-17] MEDS: Ringers Solution, Lactated 1,000 ML IVC SCH ×2 (06:12→17:31)
[2021-04-17] MEDS: Pantoprazole 40 MG VIAL IVP SCH (07:33)
[2021-04-17] MEDS: Chlorhexidine Rinse 15 ML MOUTHWASH MM SCH ×2 (07:33→19:47)
[2021-04-17] MEDS: Piperacillin/Tazobactam 3.375 GM in 0.9 % Sodium Chloride Mini Bag 100 ML IVPB SCH ×2 (07:33→15:38)
[2021-04-17 09:28] LABS: Bilirubin,Urine Negative (Negative); Blood,Urine Large (Negative); Clarity,Urine Clear (Clear); Color,Urine Colorless (Yellow); Glucose,Urine (UA) Normal (Normal); Ketones,Urine Trace mg/dL (Negative); Leukocyte Esterase,Urine Negative (Negative); Mucus,Urine Few per lpf (None-Few); Nitrite,Urine Negative (Negative); Protein,Urine Negative (Neg-Trace); RBC,Urine TNTC per hpf (0-3); Specific Gravity,Urine 1.018 (1.010-1.025); Urobilinogen,Urine Normal (Normal)
[2021-04-17 14:11] LABS: BUN/Creatinine Ratio 17 (6-26); Blood Urea Nitrogen 12 mg/dL (8-23); Calcium 8.2 mg/dL (8.6-10.3); Carbon Dioxide 24 mEq/L (23-29); Chloride 99 mEq/L (98-107); Glucose 93 mg/dL (70-105); Osmolality,Calculated 279 (280-300); Potassium 3.1 mEq/L (3.5-5.1); Sodium 135 mEq/L (136-145); eGFR For African Americans > 60 (> 60); eGFR For Non-African Americans > 60 (> 60)
[2021-04-17] MEDS ORDERED: Potassium Chloride 40 MEQ, Lidocaine 1% 2 ML in 0.9 % Sodium Chloride 500 ML IVPB ONE (14:49)
[2021-04-17 14:59] LABS: ABG Base Excess 1 mEq/L (-2 to 3); ABG HCO3 27 mEq/L (21-27); ABG Oxygen Saturation 97 % (95-98); ABG PCO2 48 mmHg (35-45); ABG PH 7.36 pH Units (7.32-7.45); ABG PO2 93 mmHg (85-104); ABG TCO2 29 mEq/L (20-26)
[2021-04-18] MEDS: Piperacillin/Tazobactam 3.375 GM in 0.9 % Sodium Chloride Mini Bag 100 ML IVPB SCH ×3 (00:20→15:19)
[2021-04-18] MEDS: Artificial Tears SOLN 15 ML BOTTLE BOTH EYES SCH ×5 (00:21→15:19)
[2021-04-18 06:11] LABS: INR 1.5; Prothrombin Time 16.8 Seconds (9.4-12.1)
[2021-04-18 06:18] LABS: VBG Ionized Calcium 1.04 mmol/L (1.15-1.35)
[2021-04-18 06:22] LABS: Alanine Aminotransferase 21 Units/L (7-52); Albumin 3.2 g/dL (3.5-5.7); Albumin/Globulin Ratio 1.6 (1.1-2.2); Alkaline Phosphatase 43 Units/L (34-104); Aspartate Amino Transferase 68 Units/L (13-39); BUN/Creatinine Ratio 11 (6-26); Bilirubin,Direct 0.1 mg/dL (0.0-0.2); Bilirubin,Indirect 0.2 mg/dL (0.0-1.0); Bilirubin,Total 0.3 mg/dL (0.3-1.0); Blood Urea Nitrogen 7 mg/dL (8-23); Calcium 8.1 mg/dL (8.6-10.3); Carbon Dioxide 29 mEq/L (23-29); Chloride 101 mEq/L (98-107); Glucose 81 mg/dL (70-105); Magnesium 1.9 mg/dL (1.6-2.6); Osmolality,Calculated 285 (280-300); Phosphorous 3.3 mg/dL (2.7-4.5); Sodium 139 mEq/L (136-145); Total Protein 5.2 g/dL (6.4-8.9); eGFR For African Americans > 60 (> 60); eGFR For Non-African Americans > 60 (> 60)
[2021-04-18 06:51] LABS: Basophils % 0.1 %; Eosinophils % 0.1 %; Hematocrit 28.2 % (35.3-44.9); Hemoglobin 9.6 g/dL (11.5-15.4); Lymphocytes # 1.2 K/mcL (0.6-4.6); Lymphocytes % 11.7 %; Mean Corpuscular Hemoglobin 32.9 pg (28.0-33.3); Mean Corpuscular Volume 96.6 fL (83.0-100.0); Mean Platelet Volume 9.6 fL (9.4-12.4); Monocytes # 1.1 K/mcL (0.0-1.3); Monocytes % 10.8 %; Platelet Count 185 K/mcL (140-400); Red Blood Count 2.92 M/mcL (3.82-4.97); Red Cell Distribution Width 14.1 % (11.5-14.5); Segmented Neutrophils % 76.3 %; White Blood Count 10.5 K/mcL (4.3-11.1)
[2021-04-18] MEDS: Chlorhexidine Rinse 15 ML MOUTHWASH MM SCH (07:21)
[2021-04-18] MEDS ORDERED: Potassium Chloride 40 MEQ, Lidocaine 1% 2 ML in 0.9 % Sodium Chloride 500 ML IVPB ONE (07:32)
[2021-04-18] MEDS: Pantoprazole 40 MG VIAL IVP SCH (08:34)
[2021-04-18] MEDS ORDERED: Potassium Chloride Elixir 20 MEQ/15 ML UDC PO ONE (09:51)
[2021-04-18] MEDS ORDERED: Ipratropium/Albuterol Neb 3 ML IH PRN ×2 (09:51→18:33)
[2021-04-18] MEDS: diazePAM 5 MG TABLET PO SCH ×3 (11:42→19:47)
[2021-04-18] MEDS ORDERED: diazePAM 5 MG TABLET PO PRN (12:00)
[2021-04-18] MEDS ORDERED: Insulin LISPRO 300 UNITS/3 ML VIAL SUBQ SCH ×2 (16:30→21:00)
[2021-04-18] MEDS ORDERED: Naloxone 0.4 MG/ML INJ IVP PRN (18:33)
[2021-04-18] MEDS ORDERED: Artificial Tears SOLN 15 ML BOTTLE BOTH EYES PRN (18:33)
[2021-04-18] MEDS: OLANZapine 5 MG TAB.RAPDIS PO SCH (19:46)
[2021-04-18] MEDS: Divalproex (12 HR) 500 MG TABLET PO SCH (19:47)
[2021-04-18] MEDS: Insulin LISPRO 300 UNITS/3 ML VIAL SUBQ SCH (19:53)
[2021-04-18] MEDS ORDERED: Furosemide 20 MG/2 ML VIAL IVP ONE (20:29)
[2021-04-18] MEDS ORDERED: OLANZapine 5 MG TAB.RAPDIS PO SCH (21:00)
[2021-04-18] MEDS ORDERED: Divalproex (12 HR) 500 MG TABLET PO SCH (21:00)
[2021-04-19] MEDS: Piperacillin/Tazobactam 3.375 GM in 0.9 % Sodium Chloride Mini Bag 100 ML IVPB SCH ×3 (00:02→16:07)
[2021-04-19] MEDS: Insulin LISPRO 300 UNITS/3 ML VIAL SUBQ SCH ×4 (07:19→21:09)
[2021-04-19] MEDS ORDERED: *HR* Dextrose 50 % in Water (Syg) 50 ML SYRINGE IVP ONE (07:23)
[2021-04-19] MEDS: diazePAM 5 MG TABLET PO SCH ×3 (08:04→20:58)
[2021-04-19] MEDS: Ascorbic Acid 500 MG TABLET PO SCH (08:04)
[2021-04-19] MEDS: Pantoprazole 40 MG VIAL IVP SCH (08:04)
[2021-04-19 09:40] LABS: Basophils % 0.2 %; Eosinophils # 0.2 K/mcL (0.0-0.6); Eosinophils % 1.7 %; Hematocrit 29.8 % (35.3-44.9); Hemoglobin 9.9 g/dL (11.5-15.4); Immature Granulocytes % 1.2 % (0-4); Lymphocytes # 1.3 K/mcL (0.6-4.6); Lymphocytes % 14.3 %; Mean Corpuscular HGB Conc 33.2 g/dL (31.6-35.5); Mean Corpuscular Hemoglobin 33.6 pg (28.0-33.3); Mean Platelet Volume 9.5 fL (9.4-12.4); Monocytes # 0.7 K/mcL (0.0-1.3); Monocytes % 8.3 %; Neutrophils # 6.7 K/mcL (1.6-8.9); Platelet Count 173 K/mcL (140-400); Red Blood Count 2.95 M/mcL (3.82-4.97); Red Cell Distribution Width 14.6 % (11.5-14.5); Segmented Neutrophils % 74.3 %
[2021-04-19 09:42] LABS: VBG Ionized Calcium 1.16 mmol/L (1.15-1.35)
[2021-04-19 09:47] LABS: INR 1.4; Prothrombin Time 16.1 Seconds (9.4-12.1)
[2021-04-19 09:55] LABS: Alanine Aminotransferase 21 Units/L (7-52); Albumin 3.2 g/dL (3.5-5.7); Albumin/Globulin Ratio 1.5 (1.1-2.2); Alkaline Phosphatase 46 Units/L (34-104); Aspartate Amino Transferase 38 Units/L (13-39); BUN/Creatinine Ratio 7 (6-26); Bilirubin,Direct 0.1 mg/dL (0.0-0.2); Bilirubin,Indirect 0.2 mg/dL (0.0-1.0); Bilirubin,Total 0.3 mg/dL (0.3-1.0); Blood Urea Nitrogen 5 mg/dL (8-23); Calcium 8.7 mg/dL (8.6-10.3); Carbon Dioxide 31 mEq/L (23-29); Chloride 97 mEq/L (98-107); Globulin 2.1 g/dL (2.4-3.5); Glucose 162 mg/dL (70-105); Magnesium 1.1 mg/dL (1.6-2.6); Osmolality,Calculated 285 (280-300); Phosphorous 2.3 mg/dL (2.7-4.5); Potassium 2.9 mEq/L (3.5-5.1); Sodium 137 mEq/L (136-145); Total Protein 5.3 g/dL (6.4-8.9); eGFR For African Americans > 60 (> 60); eGFR For Non-African Americans > 60 (> 60)
[2021-04-19] MEDS ORDERED: diazePAM 5 MG TABLET PO PRN (17:38)
[2021-04-19] MEDS ORDERED: Potassium Phosphate 44 MEQ in 0.9 % Sodium Chloride 250 ML IVPB ONE (17:39)
[2021-04-19] MEDS: Ipratropium/Albuterol Neb 3 ML IH SCH ×3 (18:26→23:57)
[2021-04-19] MEDS: Potassium Chloride Elixir 20 MEQ/15 ML UDC PO SCH (20:55)
[2021-04-19] MEDS: Divalproex (12 HR) 500 MG TABLET PO SCH (20:55)
[2021-04-19] MEDS: OLANZapine 5 MG TAB.RAPDIS PO SCH (20:58)
[2021-04-19] MEDS: *HR* Heparin 5,000 UNIT/ML VIAL SQ SCH (21:01)
[2021-04-20] MEDS ORDERED: Ertapenem 1,000 MG in 0.9 % Sodium Chloride Mini Bag 100 ML IVPB SCH
[2021-04-20] MEDS: Ipratropium/Albuterol Neb 3 ML IH SCH ×6 (04:08→23:58)
[2021-04-20] MEDS: *HR* Heparin 5,000 UNIT/ML VIAL SQ SCH ×3 (05:10→20:49)
[2021-04-20] MEDS: Acetaminophen 325 MG TABLET PO PRN (05:13)
[2021-04-20 05:40] LABS: VBG Ionized Calcium 1.22 mmol/L (1.15-1.35)
[2021-04-20 05:41] LABS: Basophils % 0.3 %; Eosinophils # 0.1 K/mcL (0.0-0.6); Eosinophils % 1.4 %; Hematocrit 29.1 % (35.3-44.9); Hemoglobin 9.6 g/dL (11.5-15.4); Immature Granulocytes % 1.3 % (0-4); Lymphocytes # 1.7 K/mcL (0.6-4.6); Lymphocytes % 25.1 %; Mean Platelet Volume 9.6 fL (9.4-12.4); Monocytes # 0.4 K/mcL (0.0-1.3); Monocytes % 6.1 %; Neutrophils # 4.6 K/mcL (1.6-8.9); Platelet Count 175 K/mcL (140-400); Red Blood Count 2.91 M/mcL (3.82-4.97); Red Cell Distribution Width 13.8 % (11.5-14.5); Segmented Neutrophils % 65.8 %; White Blood Count 6.9 K/mcL (4.3-11.1)
[2021-04-20 05:48] LABS: INR 1.3; Prothrombin Time 14.9 Seconds (9.4-12.1)
[2021-04-20 06:05] LABS: Alanine Aminotransferase 21 Units/L (7-52); Albumin 3.2 g/dL (3.5-5.7); Albumin/Globulin Ratio 1.4 (1.1-2.2); Alkaline Phosphatase 44 Units/L (34-104); Aspartate Amino Transferase 28 Units/L (13-39); BUN/Creatinine Ratio 9 (6-26); Bilirubin,Indirect 0.3 mg/dL (0.0-1.0); Bilirubin,Total 0.3 mg/dL (0.3-1.0); Blood Urea Nitrogen 5 mg/dL (8-23); Calcium 9.2 mg/dL (8.6-10.3); Carbon Dioxide 36 mEq/L (23-29); Chloride 96 mEq/L (98-107); Globulin 2.3 g/dL (2.4-3.5); Glucose 76 mg/dL (70-105); Magnesium 1.4 mg/dL (1.6-2.6); Osmolality,Calculated 284 (280-300); Phosphorous 4.7 mg/dL (2.7-4.5); Potassium 4.2 mEq/L (3.5-5.1); Sodium 139 mEq/L (136-145); Total Protein 5.5 g/dL (6.4-8.9); eGFR For African Americans > 60 (> 60); eGFR For Non-African Americans > 60 (> 60)
[2021-04-20] MEDS: Insulin LISPRO 300 UNITS/3 ML VIAL SUBQ SCH ×4 (08:53→20:33)
[2021-04-20] MEDS: Pantoprazole 40 MG VIAL IVP SCH (09:52)
[2021-04-20] MEDS: diazePAM 5 MG TABLET PO SCH ×3 (09:53→20:51)
[2021-04-20] MEDS: Potassium Chloride Elixir 20 MEQ/15 ML UDC PO SCH (10:26)
[2021-04-20] MEDS: Cholecalciferol (D-3) 1,000 UNIT (25MCG) TABLET PO SCH (10:26)
[2021-04-20] MEDS: Ascorbic Acid 500 MG TABLET PO SCH (10:26)
[2021-04-20] MEDS: OLANZapine 5 MG TAB.RAPDIS PO SCH (20:49)
[2021-04-20] MEDS: Divalproex (12 HR) 500 MG TABLET PO SCH (20:50)
[2021-04-21] MEDS ORDERED: Ertapenem 1,000 MG in 0.9 % Sodium Chloride Mini Bag 100 ML IVPB SCH (01:00)
[2021-04-21] MEDS: Acetaminophen 325 MG TABLET PO PRN (02:08)
[2021-04-21] MEDS: Ipratropium/Albuterol Neb 3 ML IH SCH ×6 (04:05→23:51)
[2021-04-21 05:16] LABS: Basophils % 0.3 %; Eosinophils # 0.2 K/mcL (0.0-0.6); Eosinophils % 2.3 %; Hematocrit 28.9 % (35.3-44.9); Hemoglobin 9.6 g/dL (11.5-15.4); Immature Granulocytes % 1.4 % (0-4); Lymphocytes # 1.6 K/mcL (0.6-4.6); Lymphocytes % 22.5 %; Mean Corpuscular HGB Conc 33.2 g/dL (31.6-35.5); Mean Corpuscular Hemoglobin 33.8 pg (28.0-33.3); Mean Corpuscular Volume 101.8 fL (83.0-100.0); Mean Platelet Volume 9.5 fL (9.4-12.4); Monocytes # 0.5 K/mcL (0.0-1.3); Monocytes % 7.1 %; Neutrophils # 4.7 K/mcL (1.6-8.9); Platelet Count 179 K/mcL (140-400); Red Blood Count 2.84 M/mcL (3.82-4.97); Red Cell Distribution Width 13.8 % (11.5-14.5); Segmented Neutrophils % 66.4 %; White Blood Count 7.1 K/mcL (4.3-11.1)
[2021-04-21 05:17] LABS: VBG Ionized Calcium 1.18 mmol/L (1.15-1.35)
[2021-04-21 05:25] LABS: INR 1.3; Prothrombin Time 14.1 Seconds (9.4-12.1)
[2021-04-21 05:36] LABS: Alanine Aminotransferase 16 Units/L (7-52); Albumin 3.1 g/dL (3.5-5.7); Albumin/Globulin Ratio 1.4 (1.1-2.2); Alkaline Phosphatase 42 Units/L (34-104); Aspartate Amino Transferase 19 Units/L (13-39); BUN/Creatinine Ratio 15 (6-26); Bilirubin,Direct 0.1 mg/dL (0.0-0.2); Bilirubin,Indirect 0.1 mg/dL (0.0-1.0); Bilirubin,Total 0.2 mg/dL (0.3-1.0); Blood Urea Nitrogen 8 mg/dL (8-23); Calcium 9.4 mg/dL (8.6-10.3); Carbon Dioxide 36 mEq/L (23-29); Chloride 96 mEq/L (98-107); Globulin 2.2 g/dL (2.4-3.5); Glucose 113 mg/dL (70-105); Magnesium 1.5 mg/dL (1.6-2.6); Osmolality,Calculated 279 (280-300); Phosphorous 4.3 mg/dL (2.7-4.5); Potassium 4.9 mEq/L (3.5-5.1); Sodium 135 mEq/L (136-145); Total Protein 5.3 g/dL (6.4-8.9); eGFR For African Americans > 60 (> 60); eGFR For Non-African Americans > 60 (> 60)
[2021-04-21] MEDS: *HR* Heparin 5,000 UNIT/ML VIAL SQ SCH ×3 (05:49→20:47)
[2021-04-21] MEDS: Insulin LISPRO 300 UNITS/3 ML VIAL SUBQ SCH ×4 (09:25→20:32)
[2021-04-21] MEDS: Pantoprazole 40 MG VIAL IVP SCH (10:22)
[2021-04-21] MEDS: Ascorbic Acid 500 MG TABLET PO SCH (10:22)
[2021-04-21] MEDS: Cholecalciferol (D-3) 1,000 UNIT (25MCG) TABLET PO SCH (10:22)
[2021-04-21] MEDS: diazePAM 5 MG TABLET PO SCH ×3 (10:22→20:46)
[2021-04-21] MEDS: Divalproex (12 HR) 500 MG TABLET PO SCH (20:45)
[2021-04-21] MEDS: Magnesium Oxide 400 MG TABLET PO SCH (20:46)
[2021-04-21] MEDS: OLANZapine 5 MG TAB.RAPDIS PO SCH (20:46)
[2021-04-22 01:52] LABS: Valproate Free 19 ug/mL (7-23); Valproate Total 67 ug/mL (50-125)
[2021-04-22] MEDS: Acetaminophen 325 MG TABLET PO PRN (03:14)
[2021-04-22] MEDS: Ipratropium/Albuterol Neb 3 ML IH SCH ×6 (04:31→23:28)
[2021-04-22] MEDS: *HR* Heparin 5,000 UNIT/ML VIAL SQ SCH ×3 (06:20→22:06)
[2021-04-22 06:51] LABS: Basophils # 0.1 K/mcL (0.0-0.2); Basophils % 0.6 %; Eosinophils # 0.2 K/mcL (0.0-0.6); Eosinophils % 2.2 %; Hematocrit 28.5 % (35.3-44.9); Hemoglobin 9.4 g/dL (11.5-15.4); Lymphocytes # 1.9 K/mcL (0.6-4.6); Lymphocytes % 21.7 %; Mean Corpuscular Hemoglobin 33.1 pg (28.0-33.3); Mean Corpuscular Volume 100.4 fL (83.0-100.0); Mean Platelet Volume 9.2 fL (9.4-12.4); Monocytes # 0.7 K/mcL (0.0-1.3); Monocytes % 8.1 %; Neutrophils # 5.8 K/mcL (1.6-8.9); Nucleated Red Blood Cells 0.2 /100 WBC (0); Platelet Count 208 K/mcL (140-400); Red Blood Count 2.84 M/mcL (3.82-4.97); Red Cell Distribution Width 13.9 % (11.5-14.5); Segmented Neutrophils % 65.4 %; White Blood Count 8.9 K/mcL (4.3-11.1)
[2021-04-22 06:53] LABS: VBG Ionized Calcium 1.32 mmol/L (1.15-1.35)
[2021-04-22 07:02] LABS: INR 1.2; Prothrombin Time 13.3 Seconds (9.4-12.1)
[2021-04-22 07:16] LABS: Alanine Aminotransferase 15 Units/L (7-52); Albumin 3.4 g/dL (3.5-5.7); Albumin/Globulin Ratio 1.4 (1.1-2.2); Alkaline Phosphatase 49 Units/L (34-104); Aspartate Amino Transferase 14 Units/L (13-39); BUN/Creatinine Ratio 22 (6-26); Bilirubin,Indirect 0.2 mg/dL (0.0-1.0); Bilirubin,Total 0.2 mg/dL (0.3-1.0); Blood Urea Nitrogen 13 mg/dL (8-23); Carbon Dioxide 34 mEq/L (23-29); Chloride 95 mEq/L (98-107); Globulin 2.4 g/dL (2.4-3.5); Glucose 107 mg/dL (70-105); Osmolality,Calculated 281 (280-300); Phosphorous 4.4 mg/dL (2.7-4.5); Potassium 4.6 mEq/L (3.5-5.1); Sodium 135 mEq/L (136-145); Total Protein 5.8 g/dL (6.4-8.9); eGFR For African Americans > 60 (> 60); eGFR For Non-African Americans > 60 (> 60)
[2021-04-22] MEDS: Insulin LISPRO 300 UNITS/3 ML VIAL SUBQ SCH ×4 (08:33→22:07)
[2021-04-22] MEDS: diazePAM 5 MG TABLET PO SCH ×3 (08:35→22:05)
[2021-04-22] MEDS: Magnesium Oxide 400 MG TABLET PO SCH ×2 (08:35→22:06)
[2021-04-22] MEDS: Ascorbic Acid 500 MG TABLET PO SCH (08:36)
[2021-04-22] MEDS: Cholecalciferol (D-3) 1,000 UNIT (25MCG) TABLET PO SCH (08:36)
[2021-04-22 09:56] LABS: Magnesium 1.4 mg/dL (1.6-2.6)
[2021-04-22 10:42] LABS: Valproate % Free 28 % (5-18)
[2021-04-22] MEDS ORDERED: Magnesium Sulfate 1 GM/102 ML PIGGYBACK IVPB ONE (13:25)
[2021-04-22] MEDS: OLANZapine 5 MG TAB.RAPDIS PO SCH (22:05)
[2021-04-22] MEDS: Divalproex (12 HR) 500 MG TABLET PO SCH (22:05)
[2021-04-23 01:33] LABS: Basophils # 0.1 K/mcL (0.0-0.2); Basophils % 0.6 %; Eosinophils # 0.2 K/mcL (0.0-0.6); Eosinophils % 1.9 %; Hematocrit 28.8 % (35.3-44.9); Hemoglobin 9.5 g/dL (11.5-15.4); Immature Granulocytes % 4.1 % (0-4); Lymphocytes # 2.2 K/mcL (0.6-4.6); Lymphocytes % 21.5 %; Mean Corpuscular Hemoglobin 33.6 pg (28.0-33.3); Mean Corpuscular Volume 101.8 fL (83.0-100.0); Mean Platelet Volume 9.4 fL (9.4-12.4); Monocytes # 1.2 K/mcL (0.0-1.3); Monocytes % 11.6 %; Neutrophils # 6.2 K/mcL (1.6-8.9); Nucleated Red Blood Cells 0.3 /100 WBC (0); Platelet Count 257 K/mcL (140-400); Red Blood Count 2.83 M/mcL (3.82-4.97); Red Cell Distribution Width 13.9 % (11.5-14.5); Segmented Neutrophils % 60.3 %; White Blood Count 10.3 K/mcL (4.3-11.1)
[2021-04-23 01:40] LABS: INR 1.2; Prothrombin Time 13.7 Seconds (9.4-12.1)
[2021-04-23 02:01] LABS: Alanine Aminotransferase 12 Units/L (7-52); Albumin 3.4 g/dL (3.5-5.7); Albumin/Globulin Ratio 1.4 (1.1-2.2); Alkaline Phosphatase 47 Units/L (34-104); Aspartate Amino Transferase 14 Units/L (13-39); BUN/Creatinine Ratio 27 (6-26); Bilirubin,Indirect 0.2 mg/dL (0.0-1.0); Bilirubin,Total 0.2 mg/dL (0.3-1.0); Blood Urea Nitrogen 17 mg/dL (8-23); Calcium 9.9 mg/dL (8.6-10.3); Carbon Dioxide 29 mEq/L (23-29); Chloride 97 mEq/L (98-107); Globulin 2.5 g/dL (2.4-3.5); Glucose 170 mg/dL (70-105); Magnesium 1.5 mg/dL (1.6-2.6); Osmolality,Calculated 286 (280-300); Phosphorous 4.8 mg/dL (2.7-4.5); Potassium 4.7 mEq/L (3.5-5.1); Sodium 135 mEq/L (136-145); Total Protein 5.9 g/dL (6.4-8.9); eGFR For African Americans > 60 (> 60); eGFR For Non-African Americans > 60 (> 60)
[2021-04-23] MEDS: Ipratropium/Albuterol Neb 3 ML IH SCH ×6 (04:04→23:34)
[2021-04-23] MEDS: *HR* Heparin 5,000 UNIT/ML VIAL SQ SCH ×3 (06:28→21:03)
[2021-04-23] MEDS: Insulin LISPRO 300 UNITS/3 ML VIAL SUBQ SCH ×4 (09:24→21:08)
[2021-04-23] MEDS: Cholecalciferol (D-3) 1,000 UNIT (25MCG) TABLET PO SCH (09:24)
[2021-04-23] MEDS: Ascorbic Acid 500 MG TABLET PO SCH (09:24)
[2021-04-23] MEDS: diazePAM 5 MG TABLET PO SCH ×3 (09:24→21:06)
[2021-04-23] MEDS: Magnesium Oxide 400 MG TABLET PO SCH ×2 (09:29→21:06)
[2021-04-23 17:50] LABS: Influenza A PCR Negative (Negative); Influenza B PCR Negative (Negative); Resp. Syncytial Virus PCR Negative (Negative); SARS-CoV-2 by PCR (In House) Negative (Negative)
[2021-04-23] MEDS: Divalproex (12 HR) 500 MG TABLET PO SCH (21:04)
[2021-04-23] MEDS: OLANZapine 5 MG TAB.RAPDIS PO SCH (21:06)
[2021-04-24] MEDS: Ipratropium/Albuterol Neb 3 ML IH SCH ×5 (03:51→21:25)
[2021-04-24] MEDS: *HR* Heparin 5,000 UNIT/ML VIAL SQ SCH ×2 (06:07→15:07)
[2021-04-24 07:01] LABS: VBG Ionized Calcium 1.28 mmol/L (1.15-1.35)
[2021-04-24 07:15] LABS: INR 1.1; Prothrombin Time 12.8 Seconds (9.4-12.1)
[2021-04-24 07:22] LABS: Alanine Aminotransferase 13 Units/L (7-52); Albumin 3.8 g/dL (3.5-5.7); Albumin/Globulin Ratio 1.5 (1.1-2.2); Alkaline Phosphatase 55 Units/L (34-104); Aspartate Amino Transferase 15 Units/L (13-39); BUN/Creatinine Ratio 29 (6-26); Bilirubin,Indirect 0.2 mg/dL (0.0-1.0); Bilirubin,Total 0.2 mg/dL (0.3-1.0); Blood Urea Nitrogen 22 mg/dL (8-23); Calcium 10.2 mg/dL (8.6-10.3); Carbon Dioxide 27 mEq/L (23-29); Chloride 95 mEq/L (98-107); Globulin 2.6 g/dL (2.4-3.5); Glucose 157 mg/dL (70-105); Magnesium 1.5 mg/dL (1.6-2.6); Osmolality,Calculated 283 (280-300); Phosphorous 5.2 mg/dL (2.7-4.5); Potassium 4.1 mEq/L (3.5-5.1); Sodium 133 mEq/L (136-145); Total Protein 6.4 g/dL (6.4-8.9); eGFR For African Americans > 60 (> 60); eGFR For Non-African Americans > 60 (> 60)
[2021-04-24] MEDS: Insulin LISPRO 300 UNITS/3 ML VIAL SUBQ SCH ×3 (08:15→17:09)
[2021-04-24] MEDS: Cholecalciferol (D-3) 1,000 UNIT (25MCG) TABLET PO SCH (08:15)
[2021-04-24] MEDS: diazePAM 5 MG TABLET PO SCH ×2 (08:15→15:07)
[2021-04-24] MEDS: Ascorbic Acid 500 MG TABLET PO SCH (08:15)
[2021-04-24] MEDS: Magnesium Oxide 400 MG TABLET PO SCH (08:15)
[2021-04-24 10:41] LABS: Eosinophils # 0.2 K/mcL (0.0-0.6); Mean Corpuscular HGB Conc 32.3 g/dL (31.6-35.5); Mean Corpuscular Hemoglobin 33.2 pg (28.0-33.3); Mean Platelet Volume 9.9 fL (9.4-12.4); Nucleated Red Blood Cells 0.2 /100 WBC (0); Platelet Count 350 K/mcL (140-400); Red Blood Count 3.01 M/mcL (3.82-4.97); Red Cell Distribution Width 14.2 % (11.5-14.5); White Blood Count 9.9 K/mcL (4.3-11.1)
[2021-04-24 11:31] VITALS: BP 104/62; PULSE 86; TEMP 97.3; O2SAT 95
[2021-04-24 12:00] LABS: Platelet Estimate Normal (Normal)
[2021-04-24 12:18] LABS: Lymphocytes # 2.4 K/mcL (0.6-4.6); Neutrophils # 6.3 K/mcL (1.6-8.9)
[2021-04-24 12:19] LABS: Anisocytosis 1+ (Not Present)
== END 2021-04-25 09:12 | disposition other institution (70) | DRG 871 ==
LOC: ICNU → 2NNU 04-17 18:19 → 2NENU 04-19 03:49
PROVIDERS: ADMIT Internal Medicine; ATTEND Internal Medicine

== ENCOUNTER 2021-05-21 13:49 | Inpatient (IN) ==
[2021-05-21] MEDS ORDERED: Furosemide 40 MG/4 ML VIAL IVP ONE (14:04)
[2021-05-21] MEDS ORDERED: Isovue-370 500 ML BOTTLE IVP ONE ×2 (14:26→18:03)
[2021-05-21] MEDS ORDERED: Piperacillin/Tazobactam 3.375 GM in Water for inj. (sterile) 20 ML IVP ONE (14:43)
[2021-05-21 14:44] LABS: VBG HCO3 35 mEq/L (21-27); VBG PCO2 84 mmHg (41-51); VBG PH 7.23 pH Units (7.32-7.42); VBG PO2 55 mmHg (25-50)
[2021-05-21 14:54] LABS: Hemoglobin 11.6 g/dL (11.5-15.4); Mean Corpuscular HGB Conc 31.4 g/dL (31.6-35.5); Mean Corpuscular Hemoglobin 33.7 pg (28.0-33.3); Mean Corpuscular Volume 107.6 fL (83.0-100.0); Monocytes # 0.4 K/mcL (0.0-1.3); Platelet Count 270 K/mcL (140-400); Red Blood Count 3.44 M/mcL (3.82-4.97); Red Cell Distribution Width 14.4 % (11.5-14.5); White Blood Count 8.8 K/mcL (4.3-11.1)
[2021-05-21 14:55] LABS: Bilirubin,Urine Negative (Negative); Blood,Urine Negative (Negative); Clarity,Urine Clear (Clear); Color,Urine Colorless (Yellow); Glucose,Urine (UA) Normal (Normal); Ketones,Urine Negative (Negative); Leukocyte Esterase,Urine Negative (Negative); Nitrite,Urine Negative (Negative); Protein,Urine Negative (Neg-Trace); Specific Gravity,Urine 1.005 (1.010-1.025); Urobilinogen,Urine Normal (Normal)
[2021-05-21 15:17] LABS: Lymphocytes # 0.7 K/mcL (0.6-4.6); Neutrophils # 7.7 K/mcL (1.6-8.9); Platelet Estimate Normal (Normal)
[2021-05-21 15:24] LABS: Alanine Aminotransferase 8 Units/L (7-52); Albumin 4.2 g/dL (3.5-5.7); Alkaline Phosphatase 59 Units/L (34-104); Aspartate Amino Transferase 9 Units/L (13-39); BUN/Creatinine Ratio 7 (6-26); Bilirubin,Indirect 0.2 mg/dL (0.0-1.0); Bilirubin,Total 0.2 mg/dL (0.3-1.0); Blood Urea Nitrogen 5 mg/dL (8-23); Calcium 8.9 mg/dL (8.6-10.3); Carbon Dioxide 33 mEq/L (23-29); Chloride 88 mEq/L (98-107); Globulin 2.1 g/dL (2.4-3.5); Glucose 179 mg/dL (70-105); Magnesium 1.5 mg/dL (1.6-2.6); Osmolality,Calculated 268 (280-300); Potassium 5.6 mEq/L (3.5-5.1); Sodium 128 mEq/L (136-145); Total Protein 6.3 g/dL (6.4-8.9); Troponin I < 0.03 ng/mL (< 0.04); eGFR For African Americans > 60 (> 60); eGFR For Non-African Americans > 60 (> 60)
[2021-05-21] MEDS ORDERED: Ipratropium/Albuterol Neb 3 ML IH ONE (15:26)
[2021-05-21 15:30] LABS: Thyroid Stimulating Hormone 1.291 mcIU/mL (0.340-5.600)
[2021-05-21 15:38] LABS: Influenza A PCR Negative (Negative); Influenza B PCR Negative (Negative); Resp. Syncytial Virus PCR Negative (Negative)
[2021-05-21 15:40] LABS: SARS-CoV-2 by PCR (In House) Negative (Negative)
[2021-05-21 15:56] LABS: VBG HCO3 39 mEq/L (21-27); VBG PCO2 85 mmHg (41-51); VBG PH 7.27 pH Units (7.32-7.42); VBG PO2 118 mmHg (25-50)
[2021-05-21] MEDS ORDERED: methylPREDNISolone 125 MG/2 ML VIAL IVP ONE (16:12)
[2021-05-21] MEDS ORDERED: 0.9 % Sodium Chloride 1,000 ML ONE (16:37)
[2021-05-21] MEDS ORDERED: *HR* Midazolam HCl 2 MG/2 ML VIAL IVP ONE (16:43)
[2021-05-21] MEDS ORDERED: *HR* Etomidate 20 MG/10 ML AMPUL IVP ONE (16:43)
[2021-05-21] MEDS ORDERED: *HR* Rocuronium Bromide 50 MG/5 ML VIAL IVP ONE (16:43)
[2021-05-21 17:58] LABS: VBG HCO3 42 mEq/L (21-27); VBG PCO2 107 mmHg (41-51); VBG PO2 44 mmHg (25-50)
[2021-05-21] MEDS ORDERED: 0.9 % Sodium Chloride 1,000 ML IVC ONE (18:03)
[2021-05-21 18:15] LABS: BUN/Creatinine Ratio 8 (6-26); Blood Urea Nitrogen 6 mg/dL (8-23); Calcium 8.5 mg/dL (8.6-10.3); Carbon Dioxide 36 mEq/L (23-29); Chloride 89 mEq/L (98-107); Glucose 133 mg/dL (70-105); Osmolality,Calculated 268 (280-300); Potassium 5.5 mEq/L (3.5-5.1); Sodium 129 mEq/L (136-145); eGFR For African Americans > 60 (> 60); eGFR For Non-African Americans > 60 (> 60)
[2021-05-21] MEDS ORDERED: Calcium Gluconate 1gm/50mL 1 GM/50 ML BAG IVPB ONE (18:24)
[2021-05-21] MEDS ORDERED: Dexmedetomidine HCl 400 MCG/100 ML MLS IVC ONE (18:36)
[2021-05-21] MEDS ORDERED: *HR* FentaNYL (PF) 1,000 MCG/20 ML VIAL ONE (18:36)
[2021-05-21] MEDS ORDERED: Dexmedetomidine HCl 400 MCG/100 ML MLS IVC SCH (18:45)
[2021-05-21] MEDS: FentaNYL (PF) 1,000 MCG/100 ML IV.SOLN IVC SCH (19:01)
[2021-05-21] MEDS ORDERED: *HR* Dextrose 50 % in Water (Syg) 50 ML SYRINGE IVP ONE (20:02)
[2021-05-21] MEDS ORDERED: Insulin Human Regular 10 UNIT in 0.9 % Sodium Chloride 10 ML IV ONE (20:02)
[2021-05-21 20:32] LABS: ABG Base Excess 8 mEq/L (-2 to 3); ABG HCO3 35 mEq/L (21-27); ABG Oxygen Saturation 100 % (95-98); ABG PCO2 64 mmHg (35-45); ABG PH 7.35 pH Units (7.32-7.45); ABG PO2 371 mmHg (85-104); ABG TCO2 37 mEq/L (20-26); Blood Gas Modality ASSIST CONTROL; Blood Gas VT 450 cc
[2021-05-21] MEDS ORDERED: Naloxone 0.4 MG/ML INJ IVP PRN (23:06)
[2021-05-21] MEDS ORDERED: Artificial Tears SOLN 15 ML BOTTLE BOTH EYES PRN (23:09)
[2021-05-21] MEDS ORDERED: Perflutren Lipid Microsphere 1.3 ML in 0.9 % Sodium Chloride 8.7 ML IVP PRN (23:15)
[2021-05-22] MEDS ORDERED: cefTRIAXone 1,000 MG in Water for inj. (sterile) 10 ML IVP SCH
[2021-05-22 00:12] LABS: Basophils # 0.1 K/mcL (0.0-0.2); Basophils % 0.8 %; Hematocrit 36.1 % (35.3-44.9); Hemoglobin 11.3 g/dL (11.5-15.4); Immature Granulocytes % 5.1 % (0-4); Lymphocytes # 0.8 K/mcL (0.6-4.6); Mean Corpuscular HGB Conc 31.3 g/dL (31.6-35.5); Mean Corpuscular Hemoglobin 33.4 pg (28.0-33.3); Mean Corpuscular Volume 106.8 fL (83.0-100.0); Mean Platelet Volume 9.9 fL (9.4-12.4); Monocytes # 0.7 K/mcL (0.0-1.3); Monocytes % 8.6 %; Neutrophils # 6.4 K/mcL (1.6-8.9); Platelet Count 232 K/mcL (140-400); Red Blood Count 3.38 M/mcL (3.82-4.97); Red Cell Distribution Width 14.1 % (11.5-14.5); Segmented Neutrophils % 76.5 %; White Blood Count 8.4 K/mcL (4.3-11.1)
[2021-05-22 00:29] LABS: Platelet Estimate Normal (Normal)
[2021-05-22 00:31] LABS: Alanine Aminotransferase 6 Units/L (7-52); Albumin 3.5 g/dL (3.5-5.7); Albumin/Globulin Ratio 1.6 (1.1-2.2); Alkaline Phosphatase 44 Units/L (34-104); Aspartate Amino Transferase 9 Units/L (13-39); BUN/Creatinine Ratio 11 (6-26); Bilirubin,Direct 0.1 mg/dL (0.0-0.2); Bilirubin,Indirect 0.3 mg/dL (0.0-1.0); Bilirubin,Total 0.4 mg/dL (0.3-1.0); Blood Urea Nitrogen 9 mg/dL (8-23); Carbon Dioxide 34 mEq/L (23-29); Chloride 91 mEq/L (98-107); Globulin 2.2 g/dL (2.4-3.5); Glucose 133 mg/dL (70-105); Magnesium 1.5 mg/dL (1.6-2.6); Osmolality,Calculated 275 (280-300); Potassium 5.1 mEq/L (3.5-5.1); Sodium 132 mEq/L (136-145); Total Protein 5.7 g/dL (6.4-8.9); eGFR For African Americans > 60 (> 60); eGFR For Non-African Americans > 60 (> 60)
[2021-05-22 00:35] LABS: Potassium,Urine 63.9 mEq/L; Sodium, Urine 102.9 mEq/L
[2021-05-22] MEDS: Artificial Tears SOLN 15 ML BOTTLE BOTH EYES SCH ×4 (00:47→11:27)
[2021-05-22] MEDS: Azithromycin 500 MG in 0.9 % Sodium Chloride 250 ML IVPB SCH (00:47)
[2021-05-22] MEDS: MethylPREDNISolone 40 MG/ML VIAL IVP SCH ×3 (00:48→16:12)
[2021-05-22] MEDS ORDERED: Dextrose Gel 15 GM/37.5 ML TUBE PO PRN ×4 (00:51→20:25)
[2021-05-22] MEDS ORDERED: D5% in Water 1,000 ML IVC PRN ×2 (00:51→20:25)
[2021-05-22] MEDS ORDERED: *HR* Dextrose 50 % in Water (Syg) 50 ML SYRINGE IVP PRN ×2 (00:51→20:25)
[2021-05-22 03:59] LABS: ABG Base Excess 8 mEq/L (-2 to 3); ABG HCO3 32 mEq/L (21-27); ABG Oxygen Saturation 90 % (95-98); ABG PCO2 45 mmHg (35-45); ABG PH 7.46 pH Units (7.32-7.45); ABG PO2 57 mmHg (85-104); ABG TCO2 34 mEq/L (20-26); Blood Gas VT 450 cc
[2021-05-22] MEDS: FentaNYL (PF) 1,000 MCG/100 ML IV.SOLN IVC SCH (05:30)
[2021-05-22] MEDS: Insulin LISPRO 300 UNITS/3 ML VIAL SUBQ SCH ×3 (06:01→16:46)
[2021-05-22 06:02] LABS: Basophils % 0.3 %; Hematocrit 33.2 % (35.3-44.9); Hemoglobin 10.8 g/dL (11.5-15.4); Lymphocytes # 0.8 K/mcL (0.6-4.6); Lymphocytes % 7.7 %; Mean Corpuscular HGB Conc 32.5 g/dL (31.6-35.5); Mean Corpuscular Hemoglobin 33.9 pg (28.0-33.3); Mean Corpuscular Volume 104.1 fL (83.0-100.0); Mean Platelet Volume 9.9 fL (9.4-12.4); Monocytes # 0.7 K/mcL (0.0-1.3); Neutrophils # 8.5 K/mcL (1.6-8.9); Platelet Count 262 K/mcL (140-400); Red Blood Count 3.19 M/mcL (3.82-4.97); Red Cell Distribution Width 14.2 % (11.5-14.5); White Blood Count 10.3 K/mcL (4.3-11.1)
[2021-05-22 06:23] LABS: BUN/Creatinine Ratio 14 (6-26); Blood Urea Nitrogen 12 mg/dL (8-23); Calcium 9.1 mg/dL (8.6-10.3); Carbon Dioxide 32 mEq/L (23-29); Chloride 95 mEq/L (98-107); Glucose 139 mg/dL (70-105); Magnesium 1.5 mg/dL (1.6-2.6); Osmolality,Calculated 270 (280-300); Potassium 4.2 mEq/L (3.5-5.1); Sodium 129 mEq/L (136-145); Troponin I < 0.03 ng/mL (< 0.04); eGFR For African Americans > 60 (> 60); eGFR For Non-African Americans > 60 (> 60)
[2021-05-22] MEDS: Chlorhexidine Rinse 15 ML MOUTHWASH MM SCH ×3 (07:59→21:37)
[2021-05-22] MEDS ORDERED: Pantoprazole 40 MG VIAL IVP SCH (09:00)
[2021-05-22] MEDS ORDERED: Furosemide 20 MG/2 ML VIAL IVP ONE (11:23)
[2021-05-22] MEDS: diazePAM 5 MG TABLET PO SCH ×3 (11:27→20:44)
[2021-05-22] MEDS: Ipratropium/Albuterol Neb 3 ML IH SCH ×4 (11:54→23:14)
[2021-05-22] MEDS ORDERED: *HR* Enoxaparin 40 MG/0.4 ML SYRINGE SQ ONE (14:48)
[2021-05-22] MEDS: Gabapentin 400 MG CAPSULE PO SCH ×2 (20:39→21:43)
[2021-05-22] MEDS: Divalproex (12 HR) 500 MG TABLET PO SCH ×2 (20:42→21:34)
[2021-05-22] MEDS: Magnesium Oxide 400 MG TABLET PO SCH ×2 (20:43→21:50)
[2021-05-22] MEDS: OLANZapine 5 MG TAB.RAPDIS PO SCH ×2 (20:44→21:32)
[2021-05-22] MEDS ORDERED: Insulin LISPRO 300 UNITS/3 ML VIAL SUBQ SCH (21:00)
[2021-05-23] MEDS: Ipratropium/Albuterol Neb 3 ML IH SCH ×5 (03:42→20:04)
[2021-05-23] MEDS: Azithromycin 500 MG in 0.9 % Sodium Chloride 250 ML IVPB SCH (03:57)
[2021-05-23] MEDS: MethylPREDNISolone 40 MG/ML VIAL IVP SCH (04:05)
[2021-05-23] MEDS ORDERED: *HR* Enoxaparin 40 MG/0.4 ML SYRINGE SQ SCH (06:00)
[2021-05-23 06:14] LABS: BUN/Creatinine Ratio 26 (6-26); Blood Urea Nitrogen 24 mg/dL (8-23); Calcium 9.1 mg/dL (8.6-10.3); Carbon Dioxide 33 mEq/L (23-29); Chloride 92 mEq/L (98-107); Glucose 129 mg/dL (70-105); Magnesium 1.8 mg/dL (1.6-2.6); Osmolality,Calculated 284 (280-300); Potassium 3.8 mEq/L (3.5-5.1); Sodium 134 mEq/L (136-145); eGFR For African Americans > 60 (> 60); eGFR For Non-African Americans > 60 (> 60)
[2021-05-23 06:16] LABS: Basophils % 0.3 %; Eosinophils % 0.2 %; Hematocrit 30.6 % (35.3-44.9); Hemoglobin 9.7 g/dL (11.5-15.4); Lymphocytes # 1.6 K/mcL (0.6-4.6); Lymphocytes % 18.8 %; Mean Corpuscular HGB Conc 31.7 g/dL (31.6-35.5); Mean Corpuscular Hemoglobin 33.6 pg (28.0-33.3); Mean Corpuscular Volume 105.9 fL (83.0-100.0); Mean Platelet Volume 10.1 fL (9.4-12.4); Monocytes # 0.9 K/mcL (0.0-1.3); Monocytes % 10.5 %; Neutrophils # 5.9 K/mcL (1.6-8.9); Platelet Count 251 K/mcL (140-400); Red Blood Count 2.89 M/mcL (3.82-4.97); Red Cell Distribution Width 14.3 % (11.5-14.5); Segmented Neutrophils % 68.2 %; White Blood Count 8.7 K/mcL (4.3-11.1)
[2021-05-23] MEDS ORDERED: Insulin LISPRO 300 UNITS/3 ML VIAL SUBQ SCH (07:30)
[2021-05-23] MEDS: diazePAM 5 MG TABLET PO SCH (08:30)
[2021-05-23] MEDS: Magnesium Oxide 400 MG TABLET PO SCH ×2 (08:31→19:48)
[2021-05-23] MEDS ORDERED: Cholecalciferol (D-3) 1,000 UNIT (25MCG) TABLET PO SCH (09:00)
[2021-05-23] MEDS ORDERED: Naloxone 0.4 MG/ML INJ IVP PRN (09:03)
[2021-05-23] MEDS ORDERED: D5% in Water 1,000 ML IVC PRN (09:20)
[2021-05-23] MEDS ORDERED: Dextrose Gel 15 GM/37.5 ML TUBE PO PRN ×2 (09:20)
[2021-05-23] MEDS ORDERED: *HR* Dextrose 50 % in Water (Syg) 50 ML SYRINGE IVP PRN (09:21)
[2021-05-23] MEDS: predniSONE 20 MG TABLET PO SCH (10:07)
[2021-05-23] MEDS: Azithromycin 250 MG TABLET PO SCH (10:08)
[2021-05-23] MEDS: *HR* HYDROcodone/Acet 5/325 mg TABLET PO PRN ×2 (11:10→19:48)
[2021-05-23] MEDS: Insulin LISPRO 300 UNITS/3 ML VIAL SUBQ SCH ×3 (11:16→19:44)
[2021-05-23] MEDS ORDERED: MethylPREDNISolone 40 MG/ML VIAL IVP SCH ×2 (12:00)
[2021-05-23] MEDS: diazePAM 2 MG TABLET PO SCH ×2 (14:56→19:46)
[2021-05-23] MEDS: Divalproex (12 HR) 500 MG TABLET PO SCH (19:46)
[2021-05-23] MEDS: OLANZapine 5 MG TAB.RAPDIS PO SCH (19:47)
[2021-05-23] MEDS: Gabapentin 400 MG CAPSULE PO SCH (19:48)
[2021-05-24] MEDS ORDERED: Azithromycin 500 MG in 0.9 % Sodium Chloride 250 ML IVPB SCH
[2021-05-24] MEDS: Ipratropium/Albuterol Neb 3 ML IH SCH ×7 (00:10→23:24)
[2021-05-24] MEDS: *HR* HYDROcodone/Acet 5/325 mg TABLET PO PRN (03:55)
[2021-05-24] MEDS: *HR* Enoxaparin 40 MG/0.4 ML SYRINGE SQ SCH (05:54)
[2021-05-24] MEDS: Insulin LISPRO 300 UNITS/3 ML VIAL SUBQ SCH ×4 (07:30→20:08)
[2021-05-24] MEDS: Azithromycin 250 MG TABLET PO SCH (08:15)
[2021-05-24] MEDS: Magnesium Oxide 400 MG TABLET PO SCH ×2 (08:15→20:10)
[2021-05-24] MEDS: Cholecalciferol (D-3) 1,000 UNIT (25MCG) TABLET PO SCH (08:15)
[2021-05-24] MEDS: diazePAM 2 MG TABLET PO SCH ×3 (08:15→20:09)
[2021-05-24] MEDS: predniSONE 20 MG TABLET PO SCH (08:15)
[2021-05-24] MEDS: Gabapentin 400 MG CAPSULE PO SCH (20:09)
[2021-05-24] MEDS: OLANZapine 5 MG TAB.RAPDIS PO SCH (20:10)
[2021-05-24] MEDS: Divalproex (12 HR) 500 MG TABLET PO SCH (20:10)
[2021-05-25 03:20] LABS: Basophils # 0.1 K/mcL (0.0-0.2); Basophils % 0.4 %; Eosinophils # 0.1 K/mcL (0.0-0.6); Eosinophils % 0.5 %; Hematocrit 31.7 % (35.3-44.9); Hemoglobin 10.7 g/dL (11.5-15.4); Immature Granulocytes % 2.2 % (0-4); Lymphocytes # 2.6 K/mcL (0.6-4.6); Lymphocytes % 21.3 %; Mean Corpuscular HGB Conc 33.8 g/dL (31.6-35.5); Mean Corpuscular Hemoglobin 34.3 pg (28.0-33.3); Mean Corpuscular Volume 101.6 fL (83.0-100.0); Mean Platelet Volume 9.4 fL (9.4-12.4); Monocytes # 0.7 K/mcL (0.0-1.3); Monocytes % 5.3 %; Neutrophils # 8.6 K/mcL (1.6-8.9); Platelet Count 307 K/mcL (140-400); Red Blood Count 3.12 M/mcL (3.82-4.97); Red Cell Distribution Width 13.5 % (11.5-14.5); Segmented Neutrophils % 70.3 %; White Blood Count 12.2 K/mcL (4.3-11.1)
[2021-05-25 03:37] LABS: BUN/Creatinine Ratio 27 (6-26); Blood Urea Nitrogen 19 mg/dL (8-23); Calcium 8.9 mg/dL (8.6-10.3); Carbon Dioxide 33 mEq/L (23-29); Chloride 90 mEq/L (98-107); Glucose 102 mg/dL (70-105); Magnesium 1.8 mg/dL (1.6-2.6); Osmolality,Calculated 272 (280-300); Potassium 4.4 mEq/L (3.5-5.1); Sodium 130 mEq/L (136-145); eGFR For African Americans > 60 (> 60); eGFR For Non-African Americans > 60 (> 60)
[2021-05-25] MEDS: Ipratropium/Albuterol Neb 3 ML IH SCH ×6 (03:49→23:39)
[2021-05-25] MEDS: *HR* Enoxaparin 40 MG/0.4 ML SYRINGE SQ SCH (05:31)
[2021-05-25] MEDS: Insulin LISPRO 300 UNITS/3 ML VIAL SUBQ SCH ×4 (07:28→20:27)
[2021-05-25] MEDS: predniSONE 20 MG TABLET PO SCH (07:56)
[2021-05-25] MEDS: Azithromycin 250 MG TABLET PO SCH (07:57)
[2021-05-25] MEDS: Cholecalciferol (D-3) 1,000 UNIT (25MCG) TABLET PO SCH (07:57)
[2021-05-25] MEDS: diazePAM 2 MG TABLET PO SCH ×3 (07:57→20:25)
[2021-05-25] MEDS: Magnesium Oxide 400 MG TABLET PO SCH ×2 (07:57→20:26)
[2021-05-25] MEDS: Divalproex (12 HR) 500 MG TABLET PO SCH (20:24)
[2021-05-25] MEDS: OLANZapine 5 MG TAB.RAPDIS PO SCH (20:26)
[2021-05-25] MEDS: Gabapentin 400 MG CAPSULE PO SCH (20:26)
[2021-05-26 01:45] LABS: Basophils % 0.3 %; Eosinophils # 0.1 K/mcL (0.0-0.6); Eosinophils % 0.4 %; Hematocrit 33.6 % (35.3-44.9); Hemoglobin 11.9 g/dL (11.5-15.4); Immature Granulocytes % 3.1 % (0-4); Lymphocytes % 18.6 %; Mean Corpuscular HGB Conc 35.4 g/dL (31.6-35.5); Mean Corpuscular Volume 98.8 fL (83.0-100.0); Mean Platelet Volume 10.5 fL (9.4-12.4); Monocytes # 0.9 K/mcL (0.0-1.3); Monocytes % 5.9 %; Neutrophils # 11.4 K/mcL (1.6-8.9); Nucleated Red Blood Cells 0.4 /100 WBC (0); Platelet Count 296 K/mcL (140-400); Red Cell Distribution Width 13.2 % (11.5-14.5); Segmented Neutrophils % 71.7 %; White Blood Count 15.8 K/mcL (4.3-11.1)
[2021-05-26 02:10] LABS: BUN/Creatinine Ratio 30 (6-26); Blood Urea Nitrogen 19 mg/dL (8-23); Calcium 8.8 mg/dL (8.6-10.3); Carbon Dioxide 27 mEq/L (23-29); Chloride 86 mEq/L (98-107); Glucose 156 mg/dL (70-105); Magnesium 1.8 mg/dL (1.6-2.6); Osmolality,Calculated 261 (280-300); Phosphorous 3.9 mg/dL (2.7-4.5); Sodium 123 mEq/L (136-145); eGFR For African Americans > 60 (> 60); eGFR For Non-African Americans > 60 (> 60)
[2021-05-26 02:49] VITALS: TEMP 97.3
[2021-05-26] MEDS: *HR* HYDROcodone/Acet 5/325 mg TABLET PO PRN (03:20)
[2021-05-26] MEDS: Ipratropium/Albuterol Neb 3 ML IH SCH ×3 (03:29→11:18)
[2021-05-26] MEDS: *HR* Enoxaparin 40 MG/0.4 ML SYRINGE SQ SCH (06:17)
[2021-05-26 07:28] VITALS: BP 132/83; PULSE 70
[2021-05-26] MEDS: Insulin LISPRO 300 UNITS/3 ML VIAL SUBQ SCH ×2 (08:34→13:11)
[2021-05-26] MEDS: diazePAM 2 MG TABLET PO SCH (08:35)
[2021-05-26] MEDS: Cholecalciferol (D-3) 1,000 UNIT (25MCG) TABLET PO SCH (08:35)
[2021-05-26] MEDS: predniSONE 20 MG TABLET PO SCH (08:35)
[2021-05-26] MEDS: Magnesium Oxide 400 MG TABLET PO SCH (08:35)
[2021-05-26] MEDS: Azithromycin 250 MG TABLET PO SCH (08:36)
[2021-05-26 08:43] VITALS: O2SAT 100
== END 2021-05-26 13:37 | disposition home health service (06) | DRG 208 ==
LOC: EMEROOARM 13:49 → ICNU 21:40 → UNDODISIN 22:06 → ICNU 22:10 → 3BNU 05-23 11:52
PROVIDERS: ADMIT Internal Medicine; ATTEND Internal Medicine

== ENCOUNTER 2021-05-29 02:47 | Inpatient (IN) ==
[2021-05-29] MEDS ORDERED: Naloxone 0.4 MG/ML INJ IVP PRN (04:56)
[2021-05-29 05:30] LABS: Basophils # 0.1 K/mcL (0.0-0.2); Basophils % 0.3 %; Hematocrit 34.1 % (35.3-44.9); Hemoglobin 11.7 g/dL (11.5-15.4); Immature Granulocytes % 2.3 % (0-4); Lymphocytes # 0.7 K/mcL (0.6-4.6); Lymphocytes % 3.8 %; Mean Corpuscular HGB Conc 34.3 g/dL (31.6-35.5); Mean Corpuscular Hemoglobin 33.7 pg (28.0-33.3); Mean Corpuscular Volume 98.3 fL (83.0-100.0); Mean Platelet Volume 9.5 fL (9.4-12.4); Monocytes # 0.5 K/mcL (0.0-1.3); Monocytes % 3.1 %; Neutrophils # 15.7 K/mcL (1.6-8.9); Platelet Count 371 K/mcL (140-400); Red Blood Count 3.47 M/mcL (3.82-4.97); Red Cell Distribution Width 13.3 % (11.5-14.5); Segmented Neutrophils % 90.5 %; White Blood Count 17.3 K/mcL (4.3-11.1)
[2021-05-29 05:33] LABS: VBG HCO3 31 mEq/L (21-27); VBG PCO2 58 mmHg (41-51); VBG PH 7.34 pH Units (7.32-7.42); VBG PO2 57 mmHg (25-50)
[2021-05-29] MEDS ORDERED: D5% in Water 1,000 ML IVC PRN (05:45)
[2021-05-29] MEDS ORDERED: Dextrose Gel 15 GM/37.5 ML TUBE PO PRN ×2 (05:45)
[2021-05-29] MEDS ORDERED: *HR* Dextrose 50 % in Water (Syg) 50 ML SYRINGE IVP PRN (05:45)
[2021-05-29 05:48] LABS: BUN/Creatinine Ratio 28 (6-26); Blood Urea Nitrogen 18 mg/dL (8-23); Calcium 9.5 mg/dL (8.6-10.3); Carbon Dioxide 32 mEq/L (23-29); Chloride 83 mEq/L (98-107); Glucose 145 mg/dL (70-105); Magnesium 1.6 mg/dL (1.6-2.6); Osmolality,Calculated 260 (280-300); Potassium 4.6 mEq/L (3.5-5.1); Sodium 123 mEq/L (136-145); eGFR For African Americans > 60 (> 60); eGFR For Non-African Americans > 60 (> 60)
[2021-05-29] MEDS ORDERED: MethylPREDNISolone 40 MG/ML VIAL IVP SCH (06:00)
[2021-05-29] MEDS ORDERED: 0.9 % Sodium Chloride 1,000 ML IVC SCH (06:45)
[2021-05-29] MEDS: Ipratropium/Albuterol Neb 3 ML IH SCH ×6 (06:50→23:32)
[2021-05-29] MEDS ORDERED: Azithromycin 500 MG in 0.9 % Sodium Chloride 250 ML IVPB SCH (07:00)
[2021-05-29] MEDS: Budesonide/Formoterol 160/4.5 1 PUFF INH IH SCH ×2 (07:39→20:12)
[2021-05-29] MEDS ORDERED: Piperacillin/Tazobactam 3.375 GM in 0.9 % Sodium Chloride Mini Bag 100 ML IVPB SCH (08:00)
[2021-05-29] MEDS: Insulin LISPRO 300 UNITS/3 ML VIAL SUBQ SCH ×4 (08:21→23:57)
[2021-05-29] MEDS: MethylPREDNISolone 40 MG/ML VIAL IVP SCH ×2 (08:21→16:25)
[2021-05-29] MEDS: diazePAM 5 MG TABLET PO SCH ×3 (08:21→20:15)
[2021-05-29] MEDS: Gabapentin 300 MG CAPSULE PO SCH (10:29)
[2021-05-29] MEDS: Magnesium Oxide 400 MG TABLET PO SCH ×2 (10:30→20:22)
[2021-05-29] MEDS: Cholecalciferol (D-3) 1,000 UNIT (25MCG) TABLET PO SCH (10:30)
[2021-05-29 11:48] LABS: BUN/Creatinine Ratio 29 (6-26); Blood Urea Nitrogen 20 mg/dL (8-23); Calcium 9.2 mg/dL (8.6-10.3); Carbon Dioxide 32 mEq/L (23-29); Chloride 86 mEq/L (98-107); Glucose 153 mg/dL (70-105); Osmolality,Calculated 266 (280-300); Potassium 4.5 mEq/L (3.5-5.1); Sodium 125 mEq/L (136-145); eGFR For African Americans > 60 (> 60); eGFR For Non-African Americans > 60 (> 60)
[2021-05-29] MEDS ORDERED: E-Z-PAQUE (BARIUM SULF) SUSP 1 BOTTLE PO ONE (12:03)
[2021-05-29] MEDS ORDERED: E-Z-HD (BARIUM SULF) SUSPENSION PO ONE (12:03)
[2021-05-29 15:19] LABS: Adenovirus Not Detected (Not Detect); Bordetella Pertussis Not Detected (Not Detect); Chlamydophila pneumoniae Not Detected (Not Detect); Coronavirus 229E Not Detected (Not Detect); Coronavirus HKU1 Not Detected (Not Detect); Coronavirus NL63 Not Detected (Not Detect); Coronavirus OC43 Not Detected (Not Detect); Human Metapneumovirus Not Detected (Not Detect); Human Rhinovirus/Enterovirus Not Detected (Not Detect); Influenza A Subtype 2009 H1 Not Detected (Not Detect); Influenza B Not Detected (Not Detect); Mycoplasma pneumoniae Not Detected (Not Detect); Parainfluenza Virus 1 Not Detected (Not Detect); Parainfluenza Virus 2 Not Detected (Not Detect); Parainfluenza Virus 3 Not Detected (Not Detect); Parainfluenza Virus 4 Not Detected (Not Detect); Respiratory Syncytial Virus Not Detected (Not Detect); SARS-CoV-2 Not Detected (Not Detect)
[2021-05-29] MEDS: *HR* HYDROcodone/Acet 5/325 mg TABLET PO PRN (16:27)
[2021-05-29] MEDS: Doxycycline 100 MG in 0.9 % Sodium Chloride Mini Bag 100 ML IVPB SCH (17:05)
[2021-05-29] MEDS: OLANZapine 5 MG TAB.RAPDIS PO SCH (20:09)
[2021-05-29] MEDS: rOPINIRole 1 MG TABLET PO SCH (20:10)
[2021-05-29] MEDS: Divalproex (12 HR) 500 MG TABLET PO SCH (20:13)
[2021-05-29] MEDS: Gabapentin 400 MG CAPSULE PO SCH (23:58)
[2021-05-30] MEDS: MethylPREDNISolone 40 MG/ML VIAL IVP SCH ×2 (01:06→17:04)
[2021-05-30] MEDS: Ipratropium/Albuterol Neb 3 ML IH SCH ×6 (04:01→23:18)
[2021-05-30] MEDS: Doxycycline 100 MG in 0.9 % Sodium Chloride Mini Bag 100 ML IVPB SCH ×2 (05:57→17:06)
[2021-05-30] MEDS: *HR* Enoxaparin 40 MG/0.4 ML SYRINGE SQ SCH (05:58)
[2021-05-30] MEDS: Budesonide/Formoterol 160/4.5 1 PUFF INH IH SCH ×2 (07:43→19:38)
[2021-05-30] MEDS: *HR* HYDROcodone/Acet 5/325 mg TABLET PO PRN ×2 (07:52→17:05)
[2021-05-30] MEDS: Magnesium Oxide 400 MG TABLET PO SCH ×2 (07:53→21:23)
[2021-05-30] MEDS: Gabapentin 300 MG CAPSULE PO SCH (07:53)
[2021-05-30] MEDS: Cholecalciferol (D-3) 1,000 UNIT (25MCG) TABLET PO SCH (07:53)
[2021-05-30] MEDS: diazePAM 5 MG TABLET PO SCH ×3 (07:53→21:23)
[2021-05-30] MEDS: Insulin LISPRO 300 UNITS/3 ML VIAL SUBQ SCH ×4 (07:55→21:38)
[2021-05-30] MEDS: Gabapentin 400 MG CAPSULE PO SCH (21:20)
[2021-05-30] MEDS: Divalproex (12 HR) 500 MG TABLET PO SCH (21:20)
[2021-05-30] MEDS: rOPINIRole 1 MG TABLET PO SCH (21:21)
[2021-05-30] MEDS: OLANZapine 5 MG TAB.RAPDIS PO SCH (21:23)
[2021-05-30] MEDS: Insulin DETEMIR 100 UNIT/ML X5UNITS SUBQ SCH (21:38)
[2021-05-31 03:26] LABS: BUN/Creatinine Ratio 23 (6-26); Blood Urea Nitrogen 14 mg/dL (8-23); Calcium 9.2 mg/dL (8.6-10.3); Carbon Dioxide 36 mEq/L (23-29); Chloride 88 mEq/L (98-107); Glucose 110 mg/dL (70-105); Magnesium 1.5 mg/dL (1.6-2.6); Osmolality,Calculated 269 (280-300); Potassium 5.1 mEq/L (3.5-5.1); Sodium 129 mEq/L (136-145); eGFR For African Americans > 60 (> 60); eGFR For Non-African Americans > 60 (> 60)
[2021-05-31] MEDS: Ipratropium/Albuterol Neb 3 ML IH SCH ×5 (03:36→20:38)
[2021-05-31] MEDS: *HR* HYDROcodone/Acet 5/325 mg TABLET PO PRN ×2 (07:02→21:53)
[2021-05-31] MEDS: MethylPREDNISolone 40 MG/ML VIAL IVP SCH ×2 (07:02→18:02)
[2021-05-31] MEDS: *HR* Enoxaparin 40 MG/0.4 ML SYRINGE SQ SCH (07:03)
[2021-05-31] MEDS: Doxycycline 100 MG in 0.9 % Sodium Chloride Mini Bag 100 ML IVPB SCH ×2 (07:03→16:57)
[2021-05-31] MEDS: Budesonide/Formoterol 160/4.5 1 PUFF INH IH SCH ×2 (07:32→20:39)
[2021-05-31] MEDS: Insulin LISPRO 300 UNITS/3 ML VIAL SUBQ SCH ×4 (09:36→22:03)
[2021-05-31] MEDS: Magnesium Oxide 400 MG TABLET PO SCH ×2 (10:08→21:55)
[2021-05-31] MEDS: Gabapentin 300 MG CAPSULE PO SCH (10:08)
[2021-05-31] MEDS: Cholecalciferol (D-3) 1,000 UNIT (25MCG) TABLET PO SCH (10:08)
[2021-05-31] MEDS: diazePAM 5 MG TABLET PO SCH ×3 (10:08→21:54)
[2021-05-31] MEDS: Insulin DETEMIR 100 UNIT/ML X5UNITS SUBQ SCH ×2 (10:11→22:03)
[2021-05-31] MEDS: Gabapentin 400 MG CAPSULE PO SCH (21:52)
[2021-05-31] MEDS: rOPINIRole 1 MG TABLET PO SCH (21:52)
[2021-05-31] MEDS: OLANZapine 5 MG TAB.RAPDIS PO SCH (21:52)
[2021-05-31] MEDS: Divalproex (12 HR) 500 MG TABLET PO SCH (21:54)
[2021-06-01] MEDS: Ipratropium/Albuterol Neb 3 ML IH SCH ×8 (03:59→23:35)
[2021-06-01] MEDS: Doxycycline 100 MG in 0.9 % Sodium Chloride Mini Bag 100 ML IVPB SCH (06:10)
[2021-06-01] MEDS: *HR* Enoxaparin 40 MG/0.4 ML SYRINGE SQ SCH (06:11)
[2021-06-01] MEDS: MethylPREDNISolone 40 MG/ML VIAL IVP SCH ×2 (06:11→16:00)
[2021-06-01 06:40] LABS: BUN/Creatinine Ratio 23 (6-26); Blood Urea Nitrogen 14 mg/dL (8-23); Calcium 9.4 mg/dL (8.6-10.3); Carbon Dioxide 39 mEq/L (23-29); Chloride 86 mEq/L (98-107); Glucose 105 mg/dL (70-105); Magnesium 1.7 mg/dL (1.6-2.6); Osmolality,Calculated 271 (280-300); Potassium 4.9 mEq/L (3.5-5.1); Sodium 130 mEq/L (136-145); eGFR For African Americans > 60 (> 60); eGFR For Non-African Americans > 60 (> 60)
[2021-06-01] MEDS: Budesonide/Formoterol 160/4.5 1 PUFF INH IH SCH ×2 (07:37→19:54)
[2021-06-01] MEDS: Insulin LISPRO 300 UNITS/3 ML VIAL SUBQ SCH ×4 (09:42→20:31)
[2021-06-01] MEDS: Cholecalciferol (D-3) 1,000 UNIT (25MCG) TABLET PO SCH (09:43)
[2021-06-01] MEDS: diazePAM 5 MG TABLET PO SCH ×3 (09:43→20:30)
[2021-06-01] MEDS: Gabapentin 300 MG CAPSULE PO SCH (09:44)
[2021-06-01] MEDS: Magnesium Oxide 400 MG TABLET PO SCH ×2 (09:44→20:31)
[2021-06-01] MEDS: Insulin DETEMIR 100 UNIT/ML X5UNITS SUBQ SCH ×2 (09:47→20:31)
[2021-06-01 09:55] LABS: Basophils % 0.2 %; Eosinophils % 0.1 %; Hematocrit 30.5 % (35.3-44.9); Hemoglobin 9.7 g/dL (11.5-15.4); Immature Granulocytes % 2.3 % (0-4); Lymphocytes # 0.7 K/mcL (0.6-4.6); Lymphocytes % 6.2 %; Mean Corpuscular HGB Conc 31.8 g/dL (31.6-35.5); Mean Corpuscular Hemoglobin 34.2 pg (28.0-33.3); Mean Corpuscular Volume 107.4 fL (83.0-100.0); Mean Platelet Volume 9.7 fL (9.4-12.4); Monocytes # 0.4 K/mcL (0.0-1.3); Monocytes % 3.5 %; Neutrophils # 9.7 K/mcL (1.6-8.9); Platelet Count 327 K/mcL (140-400); Red Blood Count 2.84 M/mcL (3.82-4.97); Red Cell Distribution Width 13.4 % (11.5-14.5); Segmented Neutrophils % 87.7 %; White Blood Count 11.1 K/mcL (4.3-11.1)
[2021-06-01] MEDS ORDERED: Ipratropium/Albuterol Neb 3 ML ONE (10:17)
[2021-06-01] MEDS: *HR* HYDROcodone/Acet 5/325 mg TABLET PO PRN (16:00)
[2021-06-01] MEDS: OLANZapine 5 MG TAB.RAPDIS PO SCH (20:30)
[2021-06-01] MEDS: rOPINIRole 1 MG TABLET PO SCH (20:30)
[2021-06-01] MEDS: Divalproex (12 HR) 500 MG TABLET PO SCH (20:30)
[2021-06-01] MEDS: Doxycycline 100 MG CAPSULE PO SCH (20:30)
[2021-06-01] MEDS: Gabapentin 400 MG CAPSULE PO SCH (20:33)
[2021-06-02 01:53] LABS: BUN/Creatinine Ratio 25 (6-26); Blood Urea Nitrogen 17 mg/dL (8-23); Calcium 9.3 mg/dL (8.6-10.3); Carbon Dioxide 39 mEq/L (23-29); Chloride 81 mEq/L (98-107); Glucose 131 mg/dL (70-105); Magnesium 1.6 mg/dL (1.6-2.6); Osmolality,Calculated 265 (280-300); Phosphorous 4.1 mg/dL (2.7-4.5); Potassium 4.8 mEq/L (3.5-5.1); Sodium 126 mEq/L (136-145); eGFR For African Americans > 60 (> 60); eGFR For Non-African Americans > 60 (> 60)
[2021-06-02] MEDS: Ipratropium/Albuterol Neb 3 ML IH SCH ×6 (03:20→23:04)
[2021-06-02] MEDS: *HR* Enoxaparin 40 MG/0.4 ML SYRINGE SQ SCH ×2 (05:32→05:36)
[2021-06-02] MEDS: MethylPREDNISolone 40 MG/ML VIAL IVP SCH ×2 (05:33→17:25)
[2021-06-02] MEDS: Budesonide/Formoterol 160/4.5 1 PUFF INH IH SCH ×2 (07:33→20:28)
[2021-06-02] MEDS: Insulin LISPRO 300 UNITS/3 ML VIAL SUBQ SCH ×4 (08:07→20:12)
[2021-06-02] MEDS: Doxycycline 100 MG CAPSULE PO SCH ×2 (08:07→20:11)
[2021-06-02] MEDS: Gabapentin 300 MG CAPSULE PO SCH (08:07)
[2021-06-02] MEDS: Cholecalciferol (D-3) 1,000 UNIT (25MCG) TABLET PO SCH (08:08)
[2021-06-02] MEDS: diazePAM 5 MG TABLET PO SCH ×3 (08:08→20:10)
[2021-06-02] MEDS: Magnesium Oxide 400 MG TABLET PO SCH ×2 (08:08→20:11)
[2021-06-02] MEDS: Insulin DETEMIR 100 UNIT/ML X5UNITS SUBQ SCH ×2 (08:08→20:13)
[2021-06-02] MEDS: rOPINIRole 1 MG TABLET PO SCH (20:10)
[2021-06-02] MEDS: Divalproex (12 HR) 500 MG TABLET PO SCH (20:10)
[2021-06-02] MEDS: OLANZapine 5 MG TAB.RAPDIS PO SCH (20:11)
[2021-06-02] MEDS: Gabapentin 400 MG CAPSULE PO SCH (20:13)
[2021-06-03] MEDS: Ipratropium/Albuterol Neb 3 ML IH SCH ×6 (03:58→23:07)
[2021-06-03] MEDS: MethylPREDNISolone 40 MG/ML VIAL IVP SCH (05:18)
[2021-06-03] MEDS: *HR* Enoxaparin 40 MG/0.4 ML SYRINGE SQ SCH (05:18)
[2021-06-03] MEDS: Budesonide/Formoterol 160/4.5 1 PUFF INH IH SCH ×2 (07:26→20:18)
[2021-06-03] MEDS: Insulin LISPRO 300 UNITS/3 ML VIAL SUBQ SCH ×4 (08:07→20:07)
[2021-06-03] MEDS: Cholecalciferol (D-3) 1,000 UNIT (25MCG) TABLET PO SCH (08:12)
[2021-06-03] MEDS: diazePAM 5 MG TABLET PO SCH ×3 (08:12→20:06)
[2021-06-03] MEDS: Gabapentin 300 MG CAPSULE PO SCH (08:13)
[2021-06-03] MEDS: Magnesium Oxide 400 MG TABLET PO SCH ×2 (08:13→20:07)
[2021-06-03] MEDS: Doxycycline 100 MG CAPSULE PO SCH ×2 (08:13→20:05)
[2021-06-03] MEDS: Insulin DETEMIR 100 UNIT/ML X5UNITS SUBQ SCH ×2 (08:24→20:07)
[2021-06-03] MEDS: *HR* HYDROcodone/Acet 5/325 mg TABLET PO PRN (16:52)
[2021-06-03] MEDS: Gabapentin 400 MG CAPSULE PO SCH (20:05)
[2021-06-03] MEDS: OLANZapine 5 MG TAB.RAPDIS PO SCH (20:06)
[2021-06-03] MEDS: Divalproex (12 HR) 500 MG TABLET PO SCH (20:06)
[2021-06-03] MEDS: rOPINIRole 1 MG TABLET PO SCH (20:06)
[2021-06-04 00:32] LABS: VBG HCO3 35 mEq/L (21-27); VBG PCO2 54 mmHg (41-51); VBG PH 7.43 pH Units (7.32-7.42); VBG PO2 166 mmHg (25-50)
[2021-06-04 00:44] LABS: BUN/Creatinine Ratio 37 (6-26); Blood Urea Nitrogen 22 mg/dL (8-23); Calcium 8.5 mg/dL (8.6-10.3); Carbon Dioxide 39 mEq/L (23-29); Chloride 81 mEq/L (98-107); Glucose 149 mg/dL (70-105); Magnesium 1.5 mg/dL (1.6-2.6); Osmolality,Calculated 260 (280-300); Phosphorous 3.5 mg/dL (2.7-4.5); Potassium 4.5 mEq/L (3.5-5.1); Sodium 122 mEq/L (136-145); eGFR For African Americans > 60 (> 60); eGFR For Non-African Americans > 60 (> 60)
[2021-06-04] MEDS ORDERED: 0.9 % Sodium Chloride 500 ML IVC ONE (02:26)
[2021-06-04] MEDS: Ipratropium/Albuterol Neb 3 ML IH SCH ×5 (03:34→20:46)
[2021-06-04] MEDS: *HR* Enoxaparin 40 MG/0.4 ML SYRINGE SQ SCH (05:33)
[2021-06-04] MEDS ORDERED: Ringers Solution, Lactated 500 ML IVC ONE (06:18)
[2021-06-04] MEDS: 0.9 % Sodium Chloride 500 ML ONE ×2 (06:26→06:37)
[2021-06-04] MEDS ORDERED: Ringers Solution, Lactated 1,000 ML ONE (06:33)
[2021-06-04] MEDS: Gabapentin 300 MG CAPSULE PO SCH (07:32)
[2021-06-04] MEDS: diazePAM 5 MG TABLET PO SCH (07:33)
[2021-06-04] MEDS: Doxycycline 100 MG CAPSULE PO SCH ×2 (07:41→21:47)
[2021-06-04] MEDS: predniSONE 20 MG TABLET PO SCH (07:41)
[2021-06-04] MEDS: Magnesium Oxide 400 MG TABLET PO SCH ×2 (07:41→21:48)
[2021-06-04] MEDS: Cholecalciferol (D-3) 1,000 UNIT (25MCG) TABLET PO SCH (07:42)
[2021-06-04] MEDS: Insulin LISPRO 300 UNITS/3 ML VIAL SUBQ SCH ×4 (07:44→21:57)
[2021-06-04] MEDS: Insulin DETEMIR 100 UNIT/ML X5UNITS SUBQ SCH ×2 (07:45→21:53)
[2021-06-04] MEDS ORDERED: 0.9 % Sodium Chloride 250 ML IVC ONE (07:45)
[2021-06-04] MEDS ORDERED: 0.9 % Sodium Chloride 1,000 ML IVC SCH (08:00)
[2021-06-04] MEDS ORDERED: Piperacillin/Tazobactam 3.375 GM in 0.9 % Sodium Chloride Mini Bag 100 ML IVPB SCH (08:00)
[2021-06-04 09:33] LABS: ABG Base Excess 7 mEq/L (-2 to 3); ABG HCO3 32 mEq/L (21-27); ABG Oxygen Saturation 95 % (95-98); ABG PCO2 53 mmHg (35-45); ABG PH 7.39 pH Units (7.32-7.45); ABG PO2 78 mmHg (85-104); ABG TCO2 34 mEq/L (20-26)
[2021-06-04] MEDS: Budesonide/Formoterol 160/4.5 1 PUFF INH IH SCH ×2 (10:02→20:46)
[2021-06-04 11:37] LABS: Bacteria,Urine Few per hpf (None-Few); Bilirubin,Urine Negative (Negative); Blood,Urine Negative (Negative); Clarity,Urine Turbid (Clear); Color,Urine Light-Yellow (Yellow); Glucose,Urine (UA) Normal (Normal); Ketones,Urine Negative (Negative); Leukocyte Esterase,Urine Trace (Negative); Nitrite,Urine Negative (Negative); Protein,Urine Negative (Neg-Trace); RBC,Urine 0-3 per hpf (0-3); Specific Gravity,Urine 1.013 (1.010-1.025); Squamous Epithelial Cell,Urine Few per hpf (None-Few); Urobilinogen,Urine Normal (Normal)
[2021-06-04] MEDS ORDERED: 0.9 % Sodium Chloride 500 ML IVC SCH (14:28)
[2021-06-04 16:25] LABS: Basophils % 0.4 %; Eosinophils # 0.1 K/mcL (0.0-0.6); Eosinophils % 0.8 %; Hematocrit 29.6 % (35.3-44.9); Hemoglobin 9.8 g/dL (11.5-15.4); Lymphocytes # 2.1 K/mcL (0.6-4.6); Lymphocytes % 21.6 %; Mean Corpuscular HGB Conc 33.1 g/dL (31.6-35.5); Mean Corpuscular Hemoglobin 33.8 pg (28.0-33.3); Mean Corpuscular Volume 102.1 fL (83.0-100.0); Mean Platelet Volume 9.5 fL (9.4-12.4); Monocytes # 0.7 K/mcL (0.0-1.3); Neutrophils # 6.3 K/mcL (1.6-8.9); Platelet Count 315 K/mcL (140-400); Red Cell Distribution Width 13.2 % (11.5-14.5); Segmented Neutrophils % 66.2 %; White Blood Count 9.5 K/mcL (4.3-11.1)
[2021-06-04 16:29] LABS: Sodium 122 mEq/L (136-145); Troponin I < 0.03 ng/mL (< 0.04)
[2021-06-04 16:49] LABS: Adenovirus Not Detected (Not Detect); Bordetella Pertussis Not Detected (Not Detect); Chlamydophila pneumoniae Not Detected (Not Detect); Coronavirus 229E Not Detected (Not Detect); Coronavirus HKU1 Not Detected (Not Detect); Coronavirus NL63 Not Detected (Not Detect); Coronavirus OC43 Not Detected (Not Detect); Human Metapneumovirus Not Detected (Not Detect); Human Rhinovirus/Enterovirus Not Detected (Not Detect); Influenza A Subtype 2009 H1 Not Detected (Not Detect); Influenza B Not Detected (Not Detect); Mycoplasma pneumoniae Not Detected (Not Detect); Parainfluenza Virus 1 Not Detected (Not Detect); Parainfluenza Virus 2 Not Detected (Not Detect); Parainfluenza Virus 3 Not Detected (Not Detect); Parainfluenza Virus 4 Not Detected (Not Detect); Respiratory Syncytial Virus Not Detected (Not Detect); SARS-CoV-2 Not Detected (Not Detect)
[2021-06-04] MEDS: OLANZapine 5 MG TAB.RAPDIS PO SCH (21:46)
[2021-06-04] MEDS: Divalproex (12 HR) 500 MG TABLET PO SCH (21:46)
[2021-06-04] MEDS: rOPINIRole 1 MG TABLET PO SCH (21:47)
[2021-06-04] MEDS: Gabapentin 400 MG CAPSULE PO SCH (21:57)
[2021-06-05] MEDS: Ipratropium/Albuterol Neb 3 ML IH SCH ×3 (00:07→07:59)
[2021-06-05 04:44] VITALS: TEMP 97.6; O2SAT 98
[2021-06-05] MEDS: *HR* Enoxaparin 40 MG/0.4 ML SYRINGE SQ SCH (05:25)
[2021-06-05 07:26] VITALS: BP 103/52; PULSE 62
[2021-06-05] MEDS: Insulin LISPRO 300 UNITS/3 ML VIAL SUBQ SCH (07:44)
[2021-06-05] MEDS: Doxycycline 100 MG CAPSULE PO SCH (07:54)
[2021-06-05] MEDS: Magnesium Oxide 400 MG TABLET PO SCH (07:54)
[2021-06-05] MEDS: Cholecalciferol (D-3) 1,000 UNIT (25MCG) TABLET PO SCH (07:54)
[2021-06-05] MEDS: predniSONE 20 MG TABLET PO SCH (07:54)
[2021-06-05] MEDS: Insulin DETEMIR 100 UNIT/ML X5UNITS SUBQ SCH (07:54)
[2021-06-05] MEDS: Budesonide/Formoterol 160/4.5 1 PUFF INH IH SCH (07:59)
== END 2021-06-05 08:45 | disposition home health service (06) | DRG 190 ==
LOC: 2NENU → SUATTDRO 04:47
PROVIDERS: ADMIT Family Medicine; ATTEND Internal Medicine

== ENCOUNTER 2021-07-25 14:08 | Inpatient (IN) ==
[2021-07-25] MEDS: Norepinephrine 4 MG/254 ML IV.SOLN IVC SCH (19:25)
[2021-07-25] MEDS ORDERED: Artificial Tears SOLN 15 ML BOTTLE BOTH EYES PRN (19:38)
[2021-07-25] MEDS ORDERED: Acetaminophen 650 MG RECTAL SUPP RC PRN (19:38)
[2021-07-25] MEDS ORDERED: Naloxone 0.4 MG/ML INJ IVP PRN (19:38)
[2021-07-25] MEDS ORDERED: Ondansetron 4 MG/2 ML VIAL IVP PRN (19:38)
[2021-07-25] MEDS ORDERED: *HR* Heparin 5,000 UNIT/ML VIAL IVP ONE (20:02)
[2021-07-25] MEDS ORDERED: *HR* Heparin 5,000 UNIT/ML VIAL IVP PRN ×2 (20:02)
[2021-07-25] MEDS ORDERED: Perflutren Lipid Microsphere 1.3 ML in 0.9 % Sodium Chloride 8.7 ML IVP PRN (20:02)
[2021-07-25] MEDS ORDERED: Heparin 25,000UNIT/250ML 1/2NS 25,000 UNIT/250 ML IV.SOLN IVC SCH (20:15)
[2021-07-25] MEDS: Chlorhexidine Rinse 15 ML MOUTHWASH MM SCH (20:27)
[2021-07-25] MEDS: Artificial Tears SOLN 15 ML BOTTLE BOTH EYES SCH ×2 (20:27→23:16)
[2021-07-25] MEDS: Famotidine 20 MG/2 ML VIAL IVP SCH (20:31)
[2021-07-25 20:35] LABS: Hematocrit 34.3 % (35.3-44.9); Hemoglobin 10.5 g/dL (11.5-15.4); Mean Corpuscular HGB Conc 30.6 g/dL (31.6-35.5); Mean Corpuscular Hemoglobin 33.4 pg (28.0-33.3); Mean Corpuscular Volume 109.2 fL (83.0-100.0); Platelet Count 301 K/mcL (140-400); Red Blood Count 3.14 M/mcL (3.82-4.97); Red Cell Distribution Width 15.1 % (11.5-14.5); White Blood Count 11.7 K/mcL (4.3-11.1)
[2021-07-25 20:44] LABS: Heparin anti-factor XA UFH 0.26 IU/mL (0.30-0.70)
[2021-07-25 20:45] LABS: INR 1.4; Prothrombin Time 15.4 Seconds (9.4-12.1)
[2021-07-25] MEDS: FentaNYL (PF) 1,000 MCG/100 ML IV.SOLN IVC SCH (21:19)
[2021-07-25] MEDS: Oseltamivir 6 MG/ML UDC PO SCH (22:35)
[2021-07-25 23:02] LABS: ABG Base Excess 4 mEq/L (-2 to 3); ABG HCO3 30 mEq/L (21-27); ABG Oxygen Saturation 87 % (95-98); ABG PCO2 51 mmHg (35-45); ABG PH 7.37 pH Units (7.32-7.45); ABG PO2 55 mmHg (85-104); ABG TCO2 31 mEq/L (20-26); Blood Gas Modality ASSIST CONTROL; Blood Gas VT 450 cc
[2021-07-26] MEDS: FentaNYL (PF) 1,000 MCG/100 ML IV.SOLN IVC SCH ×2 (03:18→11:00)
[2021-07-26] MEDS: Artificial Tears SOLN 15 ML BOTTLE BOTH EYES SCH ×3 (03:19→12:02)
[2021-07-26 03:34] LABS: Basophils # 0.1 K/mcL (0.0-0.2); Basophils % 0.8 %; Eosinophils # 0.1 K/mcL (0.0-0.6); Eosinophils % 1.2 %; Hematocrit 32.2 % (35.3-44.9); Hemoglobin 10.2 g/dL (11.5-15.4); Immature Granulocytes % 1.3 % (0-4); Lymphocytes # 1.8 K/mcL (0.6-4.6); Lymphocytes % 23.9 %; Mean Corpuscular HGB Conc 31.7 g/dL (31.6-35.5); Mean Corpuscular Hemoglobin 34.7 pg (28.0-33.3); Mean Corpuscular Volume 109.5 fL (83.0-100.0); Mean Platelet Volume 9.8 fL (9.4-12.4); Monocytes # 1.2 K/mcL (0.0-1.3); Monocytes % 16.5 %; Neutrophils # 4.2 K/mcL (1.6-8.9); Platelet Count 248 K/mcL (140-400); Red Blood Count 2.94 M/mcL (3.82-4.97); Segmented Neutrophils % 56.3 %; White Blood Count 7.5 K/mcL (4.3-11.1)
[2021-07-26 03:48] LABS: BUN/Creatinine Ratio 25 (6-26); Blood Urea Nitrogen 14 mg/dL (8-23); Calcium 8.2 mg/dL (8.6-10.3); Carbon Dioxide 28 mEq/L (23-29); Chloride 109 mEq/L (98-107); Glucose 134 mg/dL (70-105); Magnesium 1.6 mg/dL (1.6-2.6); Osmolality,Calculated 298 (280-300); Potassium 3.7 mEq/L (3.5-5.1); Sodium 143 mEq/L (136-145); eGFR For African Americans > 60 (> 60); eGFR For Non-African Americans > 60 (> 60)
[2021-07-26] MEDS: Norepinephrine 4 MG/254 ML IV.SOLN IVC SCH (04:08)
[2021-07-26] MEDS ORDERED: Magnesium Sulfate 1 GM/102 ML PIGGYBACK IVPB ONE (04:10)
[2021-07-26] MEDS: Famotidine 20 MG/2 ML VIAL IVP SCH ×2 (04:34→17:28)
[2021-07-26] MEDS: MethylPREDNISolone 40 MG/ML VIAL IVP SCH ×2 (04:35→17:28)
[2021-07-26 04:38] LABS: ABG Base Excess 3 mEq/L (-2 to 3); ABG HCO3 28 mEq/L (21-27); ABG Oxygen Saturation 97 % (95-98); ABG PCO2 49 mmHg (35-45); ABG PH 7.37 pH Units (7.32-7.45); ABG PO2 93 mmHg (85-104); ABG TCO2 30 mEq/L (20-26); Blood Gas Modality ASSIST CONTROL; Blood Gas VT 450 cc
[2021-07-26] MEDS: Meropenem 1,000 MG in 0.9 % Sodium Chloride Mini Bag 100 ML IVPB SCH ×2 (05:10→17:28)
[2021-07-26] MEDS ORDERED: SODIUM CHLORIDE MINI 0.9% IVPB SCH (06:00)
[2021-07-26] MEDS ORDERED: MEROPENEM IVPB SCH (06:00)
[2021-07-26] MEDS: Chlorhexidine Rinse 15 ML MOUTHWASH MM SCH ×2 (09:02→20:34)
[2021-07-26] MEDS: Oseltamivir 6 MG/ML UDC PO SCH ×2 (09:02→20:33)
[2021-07-26] MEDS: Aspirin 81 MG TAB.CHEW PO SCH (10:59)
[2021-07-26] MEDS: Dexmedetomidine HCl 400 MCG/100 ML MLS IVC SCH (10:59)
[2021-07-26] MEDS ORDERED: Furosemide 40 MG/4 ML VIAL IVP ONE (16:58)
[2021-07-26] MEDS ORDERED: *HR* OxyCODONE Immed Rel 5 MG TABLET PO PRN (17:20)
[2021-07-26] MEDS ORDERED: hydrOXYzine pamoate 25 MG CAPSULE PO PRN (17:25)
[2021-07-26] MEDS: gemfibroziL 600 MG TABLET PO SCH (17:28)
[2021-07-26] MEDS ORDERED: *HR* Metoprolol 5 MG/5 ML VIAL IVP ONE ×2 (18:40→18:41)
[2021-07-26] MEDS: Divalproex (12 HR) 500 MG TABLET PO SCH ×2 (20:34→21:08)
[2021-07-26] MEDS: diazePAM 5 MG TABLET PO SCH (20:34)
[2021-07-26] MEDS: Gabapentin 400 MG CAPSULE PO SCH (20:36)
[2021-07-26] MEDS ORDERED: traZODone 50 MG TABLET PO SCH (21:00)
[2021-07-26] MEDS ORDERED: rOPINIRole 1 MG TABLET PO SCH (21:00)
[2021-07-27] MEDS: Famotidine 20 MG/2 ML VIAL IVP SCH (05:11)
[2021-07-27] MEDS: Meropenem 1,000 MG in 0.9 % Sodium Chloride Mini Bag 100 ML IVPB SCH ×3 (05:12→23:39)
[2021-07-27] MEDS: MethylPREDNISolone 40 MG/ML VIAL IVP SCH ×2 (05:12→16:55)
[2021-07-27 05:17] LABS: Basophils % 0.3 %; Hematocrit 32.5 % (35.3-44.9); Hemoglobin 10.1 g/dL (11.5-15.4); Immature Granulocytes % 0.7 % (0-4); Lymphocytes # 0.8 K/mcL (0.6-4.6); Lymphocytes % 11.3 %; Mean Corpuscular HGB Conc 31.1 g/dL (31.6-35.5); Mean Corpuscular Hemoglobin 33.3 pg (28.0-33.3); Mean Corpuscular Volume 107.3 fL (83.0-100.0); Mean Platelet Volume 10.5 fL (9.4-12.4); Monocytes # 0.9 K/mcL (0.0-1.3); Monocytes % 12.7 %; Neutrophils # 5.1 K/mcL (1.6-8.9); Nucleated Red Blood Cells 0.3 /100 WBC (0); Platelet Count 215 K/mcL (140-400); Red Blood Count 3.03 M/mcL (3.82-4.97); Red Cell Distribution Width 14.6 % (11.5-14.5); White Blood Count 6.8 K/mcL (4.3-11.1)
[2021-07-27 05:34] LABS: BUN/Creatinine Ratio 31 (6-26); Blood Urea Nitrogen 16 mg/dL (8-23); Calcium 8.7 mg/dL (8.6-10.3); Carbon Dioxide 30 mEq/L (23-29); Chloride 108 mEq/L (98-107); Glucose 134 mg/dL (70-105); Magnesium 1.5 mg/dL (1.6-2.6); Osmolality,Calculated 303 (280-300); Phosphorous 5.1 mg/dL (2.7-4.5); Potassium 4.2 mEq/L (3.5-5.1); Sodium 145 mEq/L (136-145); eGFR For African Americans > 60 (> 60); eGFR For Non-African Americans > 60 (> 60)
[2021-07-27] MEDS: Budesonide/Formoterol 160/4.5 1 PUFF INH IH SCH ×2 (08:19→21:35)
[2021-07-27] MEDS: gemfibroziL 600 MG TABLET PO SCH ×2 (09:05→15:24)
[2021-07-27] MEDS: Chlorhexidine Rinse 15 ML MOUTHWASH MM SCH ×2 (09:05→20:20)
[2021-07-27] MEDS: diazePAM 5 MG TABLET PO SCH (09:06)
[2021-07-27] MEDS: Gabapentin 300 MG CAPSULE PO SCH (09:06)
[2021-07-27] MEDS: *HR* SitaGLIPtin 25 MG TABLET PO SCH (09:06)
[2021-07-27] MEDS: OLANZapine 5 MG TAB.RAPDIS PO SCH (09:06)
[2021-07-27] MEDS: Dexmedetomidine HCl 400 MCG/100 ML MLS IVC SCH (09:06)
[2021-07-27] MEDS: Oseltamivir 6 MG/ML UDC PO SCH ×2 (09:10→20:24)
[2021-07-27] MEDS: Valproic Acid Oral Soln 250 MG/5 ML UDC PO SCH ×3 (09:10→23:38)
[2021-07-27] MEDS: Aspirin 81 MG TAB.CHEW PO SCH (09:10)
[2021-07-27] MEDS ORDERED: rOPINIRole 1 MG TABLET PO PRN (09:14)
[2021-07-27] MEDS ORDERED: diazePAM 5 MG TABLET PO PRN (09:14)
[2021-07-27] MEDS ORDERED: Furosemide 40 MG/4 ML VIAL IVP ONE (11:11)
[2021-07-27] MEDS: *HR* Heparin 5,000 UNIT/ML VIAL SQ SCH ×2 (12:47→20:20)
[2021-07-27] MEDS ORDERED: *HR* Heparin 5,000 UNIT/ML VIAL SQ SCH (14:00)
[2021-07-27] MEDS: Norepinephrine 4 MG/254 ML IV.SOLN IVC SCH (16:55)
[2021-07-27 17:08] LABS: ABG Base Excess 8 mEq/L (-2 to 3); ABG HCO3 35 mEq/L (21-27); ABG Oxygen Saturation 95 % (95-98); ABG PCO2 57 mmHg (35-45); ABG PH 7.39 pH Units (7.32-7.45); ABG PO2 77 mmHg (85-104); ABG TCO2 37 mEq/L (20-26)
[2021-07-27] MEDS: Gabapentin 400 MG CAPSULE PO SCH (20:21)
[2021-07-28] MEDS ORDERED: Furosemide 40 MG/4 ML VIAL IVP ONE (03:02)
[2021-07-28] MEDS: *HR* Heparin 5,000 UNIT/ML VIAL SQ SCH ×4 (04:13→20:31)
[2021-07-28 04:46] LABS: VBG Ionized Calcium 1.22 mmol/L (1.15-1.35)
[2021-07-28 04:55] LABS: Hematocrit 29.5 % (35.3-44.9); Hemoglobin 9.4 g/dL (11.5-15.4); Mean Corpuscular HGB Conc 31.9 g/dL (31.6-35.5); Mean Corpuscular Hemoglobin 34.3 pg (28.0-33.3); Mean Corpuscular Volume 107.7 fL (83.0-100.0); Mean Platelet Volume 10.3 fL (9.4-12.4); Platelet Count 236 K/mcL (140-400); Red Blood Count 2.74 M/mcL (3.82-4.97); Red Cell Distribution Width 14.4 % (11.5-14.5); White Blood Count 6.2 K/mcL (4.3-11.1)
[2021-07-28 05:17] LABS: BUN/Creatinine Ratio 41 (6-26); Blood Urea Nitrogen 24 mg/dL (8-23); Calcium 8.8 mg/dL (8.6-10.3); Carbon Dioxide 37 mEq/L (23-29); Chloride 104 mEq/L (98-107); Glucose 120 mg/dL (70-105); Magnesium 1.7 mg/dL (1.6-2.6); Osmolality,Calculated 303 (280-300); Phosphorous 3.8 mg/dL (2.7-4.5); Potassium 3.9 mEq/L (3.5-5.1); Sodium 144 mEq/L (136-145); eGFR For African Americans > 60 (> 60); eGFR For Non-African Americans > 60 (> 60)
[2021-07-28] MEDS: MethylPREDNISolone 40 MG/ML VIAL IVP SCH (06:13)
[2021-07-28] MEDS: Aspirin 81 MG TAB.CHEW PO SCH (08:43)
[2021-07-28] MEDS: *HR* SitaGLIPtin 25 MG TABLET PO SCH (08:43)
[2021-07-28] MEDS: gemfibroziL 600 MG TABLET PO SCH ×2 (08:43→16:53)
[2021-07-28] MEDS: OLANZapine 5 MG TAB.RAPDIS PO SCH (08:43)
[2021-07-28] MEDS: Meropenem 1,000 MG in 0.9 % Sodium Chloride Mini Bag 100 ML IVPB SCH (08:43)
[2021-07-28] MEDS: Valproic Acid Oral Soln 250 MG/5 ML UDC PO SCH ×2 (08:43→17:24)
[2021-07-28] MEDS: Dexmedetomidine HCl 400 MCG/100 ML MLS IVC SCH (08:44)
[2021-07-28] MEDS: Chlorhexidine Rinse 15 ML MOUTHWASH MM SCH (08:44)
[2021-07-28] MEDS: Gabapentin 300 MG CAPSULE PO SCH (08:44)
[2021-07-28] MEDS: Oseltamivir 6 MG/ML UDC PO SCH ×2 (10:43→21:05)
[2021-07-28] MEDS: Budesonide/Formoterol 160/4.5 1 PUFF INH IH SCH ×2 (11:00→23:44)
[2021-07-28] MEDS ORDERED: *HR* OxyCODONE Immed Rel 5 MG TABLET PO PRN (12:13)
[2021-07-28] MEDS ORDERED: rOPINIRole 1 MG TABLET PO PRN (12:13)
[2021-07-28] MEDS ORDERED: Artificial Tears SOLN 15 ML BOTTLE BOTH EYES PRN (12:13)
[2021-07-28] MEDS ORDERED: Ondansetron 4 MG/2 ML VIAL IVP PRN (12:13)
[2021-07-28] MEDS ORDERED: diazePAM 5 MG TABLET PO PRN (12:13)
[2021-07-28] MEDS ORDERED: Acetaminophen 650 MG RECTAL SUPP RC PRN (12:13)
[2021-07-28] MEDS ORDERED: Naloxone 0.4 MG/ML INJ IVP PRN (12:13)
[2021-07-28] MEDS ORDERED: Meropenem 1,000 MG in 0.9 % Sodium Chloride Mini Bag 100 ML IVPB SCH (16:00)
[2021-07-28] MEDS: Nitrofurantoin (BID) 100 MG CAPSULE PO SCH (16:53)
[2021-07-28] MEDS: Gabapentin 400 MG CAPSULE PO SCH (20:31)
[2021-07-29] MEDS: Valproic Acid Oral Soln 250 MG/5 ML UDC PO SCH ×3 (02:07→16:40)
[2021-07-29] MEDS: *HR* Heparin 5,000 UNIT/ML VIAL SQ SCH ×3 (04:01→20:11)
[2021-07-29 04:20] LABS: Basophils % 0.3 %; Eosinophils % 0.7 %; Hematocrit 29.2 % (35.3-44.9); Hemoglobin 9.5 g/dL (11.5-15.4); Immature Granulocytes % 0.9 % (0-4); Lymphocytes # 1.7 K/mcL (0.6-4.6); Lymphocytes % 29.5 %; Mean Corpuscular HGB Conc 32.5 g/dL (31.6-35.5); Mean Corpuscular Hemoglobin 34.2 pg (28.0-33.3); Monocytes # 0.8 K/mcL (0.0-1.3); Monocytes % 13.1 %; Neutrophils # 3.2 K/mcL (1.6-8.9); Platelet Count 218 K/mcL (140-400); Red Blood Count 2.78 M/mcL (3.82-4.97); Red Cell Distribution Width 14.5 % (11.5-14.5); Segmented Neutrophils % 55.5 %; White Blood Count 5.8 K/mcL (4.3-11.1)
[2021-07-29 04:21] LABS: VBG Ionized Calcium 1.28 mmol/L (1.15-1.35)
[2021-07-29 04:46] LABS: Alanine Aminotransferase 69 Units/L (7-52); Albumin/Globulin Ratio 1.4 (1.1-2.2); Alkaline Phosphatase 36 Units/L (34-104); Aspartate Amino Transferase 24 Units/L (13-39); BUN/Creatinine Ratio 42 (6-26); Bilirubin,Total 0.2 mg/dL (0.3-1.0); Blood Urea Nitrogen 25 mg/dL (8-23); Calcium 9.3 mg/dL (8.6-10.3); Carbon Dioxide 36 mEq/L (23-29); Chloride 103 mEq/L (98-107); Globulin 2.2 g/dL (2.4-3.5); Glucose 116 mg/dL (70-105); Magnesium 1.6 mg/dL (1.6-2.6); Osmolality,Calculated 303 (280-300); Phosphorous 3.2 mg/dL (2.7-4.5); Potassium 3.2 mEq/L (3.5-5.1); Sodium 144 mEq/L (136-145); Total Protein 5.2 g/dL (6.4-8.9); eGFR For African Americans > 60 (> 60); eGFR For Non-African Americans > 60 (> 60)
[2021-07-29] MEDS: Budesonide/Formoterol 160/4.5 1 PUFF INH IH SCH ×2 (07:50→21:00)
[2021-07-29] MEDS ORDERED: Aspirin 81 MG TAB.CHEW PO SCH (09:00)
[2021-07-29] MEDS: Gabapentin 300 MG CAPSULE PO SCH (09:49)
[2021-07-29] MEDS: Nitrofurantoin (BID) 100 MG CAPSULE PO SCH ×2 (09:49→16:39)
[2021-07-29] MEDS: MethylPREDNISolone 40 MG/ML VIAL IVP SCH (09:49)
[2021-07-29] MEDS: gemfibroziL 600 MG TABLET PO SCH (09:53)
[2021-07-29] MEDS: OLANZapine 5 MG TAB.RAPDIS PO SCH (11:13)
[2021-07-29] MEDS: Oseltamivir 6 MG/ML UDC PO SCH (12:18)
[2021-07-29] MEDS: rOPINIRole 1 MG TABLET PO SCH (20:13)
[2021-07-29] MEDS: Gabapentin 400 MG CAPSULE PO SCH (20:43)
[2021-07-29] MEDS ORDERED: Menthol 1 EACH LOZENGE PO PRN (22:27)
[2021-07-29] MEDS ORDERED: Ipratropium/Albuterol Neb 3 ML IH PRN (23:12)
[2021-07-30] MEDS: Valproic Acid Oral Soln 250 MG/5 ML UDC PO SCH ×3 (00:09→15:58)
[2021-07-30 02:41] VITALS: PULSE 82
[2021-07-30] MEDS: *HR* Heparin 5,000 UNIT/ML VIAL SQ SCH ×3 (03:23→20:04)
[2021-07-30 03:58] LABS: Basophils % 0.2 %; Eosinophils % 0.4 %; Hematocrit 29.8 % (35.3-44.9); Hemoglobin 9.5 g/dL (11.5-15.4); Immature Granulocytes % 1.4 % (0-4); Lymphocytes # 1.1 K/mcL (0.6-4.6); Lymphocytes % 21.4 %; Mean Corpuscular HGB Conc 31.9 g/dL (31.6-35.5); Mean Corpuscular Hemoglobin 34.2 pg (28.0-33.3); Mean Corpuscular Volume 107.2 fL (83.0-100.0); Mean Platelet Volume 10.4 fL (9.4-12.4); Monocytes # 0.6 K/mcL (0.0-1.3); Monocytes % 12.4 %; Neutrophils # 3.3 K/mcL (1.6-8.9); Platelet Count 235 K/mcL (140-400); Red Blood Count 2.78 M/mcL (3.82-4.97); Red Cell Distribution Width 14.3 % (11.5-14.5); Segmented Neutrophils % 64.2 %; White Blood Count 5.1 K/mcL (4.3-11.1)
[2021-07-30 04:18] LABS: BUN/Creatinine Ratio 27 (6-26); Blood Urea Nitrogen 16 mg/dL (8-23); Calcium 9.2 mg/dL (8.6-10.3); Carbon Dioxide 37 mEq/L (23-29); Chloride 102 mEq/L (98-107); Glucose 118 mg/dL (70-105); Magnesium 1.4 mg/dL (1.6-2.6); Osmolality,Calculated 302 (280-300); Phosphorous 3.4 mg/dL (2.7-4.5); Potassium 3.8 mEq/L (3.5-5.1); Sodium 145 mEq/L (136-145); eGFR For African Americans > 60 (> 60); eGFR For Non-African Americans > 60 (> 60)
[2021-07-30 07:46] VITALS: BP 145/84; TEMP 97.4
[2021-07-30] MEDS: Budesonide/Formoterol 160/4.5 1 PUFF INH IH SCH ×2 (08:26→20:04)
[2021-07-30 08:29] VITALS: O2SAT 97
[2021-07-30] MEDS ORDERED: Aspirin Enteric Coated 81 MG Tablet PO SCH (09:00)
[2021-07-30] MEDS: MethylPREDNISolone 40 MG/ML VIAL IVP SCH (09:12)
[2021-07-30] MEDS: Gabapentin 300 MG CAPSULE PO SCH (09:13)
[2021-07-30] MEDS: OLANZapine 5 MG TAB.RAPDIS PO SCH (09:13)
[2021-07-30] MEDS: Nitrofurantoin (BID) 100 MG CAPSULE PO SCH ×2 (09:21→15:58)
[2021-07-30] MEDS: diazePAM 5 MG TABLET PO SCH ×2 (15:58→20:04)
[2021-07-30 17:04] LABS: Adenovirus Not Detected (Not Detect); Bordetella Pertussis Not Detected (Not Detect); Chlamydophila pneumoniae Not Detected (Not Detect); Coronavirus 229E Not Detected (Not Detect); Coronavirus HKU1 Not Detected (Not Detect); Coronavirus NL63 Not Detected (Not Detect); Coronavirus OC43 Not Detected (Not Detect); Human Metapneumovirus Not Detected (Not Detect); Human Rhinovirus/Enterovirus Not Detected (Not Detect); Influenza A Subtype 2009 H1 Not Detected (Not Detect); Influenza B Not Detected (Not Detect); Mycoplasma pneumoniae Not Detected (Not Detect); Parainfluenza Virus 1 Not Detected (Not Detect); Parainfluenza Virus 2 Not Detected (Not Detect); Parainfluenza Virus 3 Not Detected (Not Detect); Parainfluenza Virus 4 Not Detected (Not Detect); Respiratory Syncytial Virus Not Detected (Not Detect); SARS-CoV-2 Not Detected (Not Detect)
[2021-07-30] MEDS: Gabapentin 400 MG CAPSULE PO SCH (20:04)
[2021-07-30] MEDS: rOPINIRole 1 MG TABLET PO SCH (20:04)
== END 2021-07-30 21:18 | DRG 208 ==
LOC: ICNU 18:58 → 2ANU 07-28 16:39
PROVIDERS: ADMIT Internal Medicine; ATTEND Internal Medicine

== ENCOUNTER 2021-08-03 06:47 | Inpatient (IN) ==
[~2021-08-03 06:47] MED LIST: *HR* HYDROcodone/Acet 5/325 mg TABLET PO PRN; *HR* Promethazine 25 MG/ML VIAL IM PRN; Acetaminophen 325 MG TABLET PO PRN; Naloxone 0.4 MG/ML INJ IVP PRN; Ondansetron 4 MG/2 ML VIAL IVP PRN
[2021-08-03] MEDS ORDERED: 0.9 % Sodium Chloride 500 ML IVC ONE (08:22)
[2021-08-03] MEDS: Dexamethasone Sodium Phos/PF 10 MG/ML VIAL IVP SCH (08:55)
[2021-08-03] MEDS ORDERED: *HR* LORazepam 2 MG/ML VIAL IVP PRN (13:24)
[2021-08-03] MEDS: *HR* OxyCODONE Immed Rel 5 MG TABLET PO PRN (14:55)
[2021-08-03] MEDS: Divalproex (12 HR) 500 MG TABLET PO SCH (20:26)
[2021-08-03] MEDS: rOPINIRole 1 MG TABLET PO SCH (20:26)
[2021-08-03] MEDS: traZODone 50 MG TABLET PO SCH (20:27)
[2021-08-03] MEDS: diazePAM 5 MG TABLET PO SCH (20:27)
[2021-08-03] MEDS: Melatonin 3 MG TABLET PO PRN (20:27)
[2021-08-03] MEDS: Budesonide/Formoterol 160/4.5 1 PUFF INH IH SCH (20:40)
[2021-08-04] MEDS ORDERED: 0.9 % Sodium Chloride 500 ML IVC ONE ×2 (00:38→01:17)
[2021-08-04] MEDS: Insulin LISPRO 300 UNITS/3 ML VIAL SUBQ SCH ×7 (00:50→23:27)
[2021-08-04] MEDS ORDERED: 0.9 % Sodium Chloride 500 ML ONE (01:20)
[2021-08-04] MEDS ORDERED: Albumin Human 5% 12.5 GM/250 ML IV.SOLN IVPB ONE (03:10)
[2021-08-04 03:43] LABS: Basophils % 0.1 %; Hematocrit 26.1 % (35.3-44.9); Immature Granulocytes % 0.5 % (0-4); Lymphocytes # 0.8 K/mcL (0.6-4.6); Lymphocytes % 7.8 %; Mean Corpuscular HGB Conc 29.9 g/dL (31.6-35.5); Mean Corpuscular Hemoglobin 32.6 pg (28.0-33.3); Mean Corpuscular Volume 109.2 fL (83.0-100.0); Mean Platelet Volume 10.2 fL (9.4-12.4); Monocytes # 0.5 K/mcL (0.0-1.3); Monocytes % 4.5 %; Neutrophils # 8.8 K/mcL (1.6-8.9); Platelet Count 281 K/mcL (140-400); Red Blood Count 2.39 M/mcL (3.82-4.97); Red Cell Distribution Width 14.2 % (11.5-14.5); Segmented Neutrophils % 87.1 %
[2021-08-04 03:47] LABS: Hemoglobin 7.8 g/dL (11.5-15.4); White Blood Count 10.1 K/mcL (4.3-11.1)
[2021-08-04 04:01] LABS: BUN/Creatinine Ratio 17 (6-26); Blood Urea Nitrogen 11 mg/dL (8-23); Calcium 8.6 mg/dL (8.6-10.3); Carbon Dioxide 36 mEq/L (23-29); Chloride 103 mEq/L (98-107); Glucose 90 mg/dL (70-105); Osmolality,Calculated 293 (280-300); Potassium 3.9 mEq/L (3.5-5.1); Sodium 142 mEq/L (136-145); eGFR For African Americans > 60 (> 60); eGFR For Non-African Americans > 60 (> 60)
[2021-08-04] MEDS: Norepinephrine 4 MG/254 ML IV.SOLN IVC SCH ×2 (04:23→19:48)
[2021-08-04] MEDS: *HR* Enoxaparin 40 MG/0.4 ML SYRINGE SQ SCH (05:31)
[2021-08-04] MEDS: Budesonide/Formoterol 160/4.5 1 PUFF INH IH SCH ×2 (08:05→20:10)
[2021-08-04] MEDS: Piperacillin/Tazobactam 3.375 GM in 0.9 % Sodium Chloride Mini Bag 100 ML IVPB SCH ×3 (08:16→23:25)
[2021-08-04] MEDS: levoFLOXacin 750 MG/150 ML 750 MG/150 ML BAG IVPB SCH (08:16)
[2021-08-04] MEDS: Dexamethasone Sodium Phos/PF 10 MG/ML VIAL IVP SCH (08:17)
[2021-08-04] MEDS: diazePAM 5 MG TABLET PO SCH ×3 (08:17→19:47)
[2021-08-04 08:27] LABS: ABG Base Excess 10 mEq/L (-2 to 3); ABG HCO3 38 mEq/L (21-27); ABG Oxygen Saturation 98 % (95-98); ABG PCO2 73 mmHg (35-45); ABG PH 7.33 pH Units (7.32-7.45); ABG PO2 110 mmHg (85-104); ABG TCO2 40 mEq/L (20-26); Blood Gas Modality ST; Blood Gas VT 14 cc
[2021-08-04 09:39] LABS: Bilirubin,Urine Negative (Negative); Blood,Urine Negative (Negative); Clarity,Urine Clear (Clear); Color,Urine Yellow (Yellow); Glucose,Urine (UA) Normal (Normal); Ketones,Urine Trace mg/dL (Negative); Leukocyte Esterase,Urine Negative (Negative); Mucus,Urine Few per lpf (None-Few); Nitrite,Urine Negative (Negative); Protein,Urine 50 mg/dL (Neg-Trace); Specific Gravity,Urine > 1.030 (1.010-1.025); Squamous Epithelial Cell,Urine Few per hpf (None-Few); Urobilinogen,Urine Normal (Normal)
[2021-08-04] MEDS: *HR* OxyCODONE Immed Rel 5 MG TABLET PO PRN (13:38)
[2021-08-04 13:56] LABS: Albumin 3.1 g/dL (3.5-5.7); Albumin/Globulin Ratio 1.3 (1.1-2.2); Bilirubin,Direct 0.1 mg/dL (0.0-0.2); Bilirubin,Indirect 0.2 mg/dL (0.0-1.0); Bilirubin,Total 0.3 mg/dL (0.3-1.0); Globulin 2.3 g/dL (2.4-3.5); Total Protein 5.4 g/dL (6.4-8.9)
[2021-08-04] MEDS ORDERED: Remdesivir 200 MG in 0.9 % Sodium Chloride 100 ML IVPB ONE (15:49)
[2021-08-04] MEDS: rOPINIRole 1 MG TABLET PO SCH (19:47)
[2021-08-04] MEDS: Divalproex (12 HR) 500 MG TABLET PO SCH (19:47)
[2021-08-04] MEDS: traZODone 50 MG TABLET PO SCH (21:55)
[2021-08-05] MEDS: Insulin LISPRO 300 UNITS/3 ML VIAL SUBQ SCH ×5 (03:49→20:08)
[2021-08-05] MEDS: *HR* Enoxaparin 40 MG/0.4 ML SYRINGE SQ SCH (05:00)
[2021-08-05 06:43] LABS: Albumin 3.2 g/dL (3.5-5.7); Albumin/Globulin Ratio 1.5 (1.1-2.2); Bilirubin,Direct 0.1 mg/dL (0.0-0.2); Bilirubin,Indirect 0.1 mg/dL (0.0-1.0); Bilirubin,Total 0.2 mg/dL (0.3-1.0); Globulin 2.2 g/dL (2.4-3.5); Total Protein 5.4 g/dL (6.4-8.9)
[2021-08-05] MEDS: Dexamethasone Sodium Phos/PF 10 MG/ML VIAL IVP SCH (07:24)
[2021-08-05] MEDS: diazePAM 5 MG TABLET PO SCH ×3 (07:24→20:08)
[2021-08-05] MEDS: Budesonide/Formoterol 160/4.5 1 PUFF INH IH SCH ×2 (07:54→20:14)
[2021-08-05] MEDS: levoFLOXacin 750 MG/150 ML 750 MG/150 ML BAG IVPB SCH (08:00)
[2021-08-05 08:22] LABS: Hematocrit 30.6 % (35.3-44.9); Hemoglobin 9.1 g/dL (11.5-15.4); Mean Corpuscular HGB Conc 29.7 g/dL (31.6-35.5); Mean Corpuscular Hemoglobin 33.3 pg (28.0-33.3); Mean Corpuscular Volume 112.1 fL (83.0-100.0); Mean Platelet Volume 10.1 fL (9.4-12.4); Platelet Count 280 K/mcL (140-400); Red Blood Count 2.73 M/mcL (3.82-4.97); Red Cell Distribution Width 13.8 % (11.5-14.5); White Blood Count 7.4 K/mcL (4.3-11.1)
[2021-08-05 08:40] LABS: BUN/Creatinine Ratio 15 (6-26); Blood Urea Nitrogen 10 mg/dL (8-23); Calcium 9.4 mg/dL (8.6-10.3); Carbon Dioxide 34 mEq/L (23-29); Chloride 102 mEq/L (98-107); Glucose 92 mg/dL (70-105); Magnesium 1.6 mg/dL (1.6-2.6); Osmolality,Calculated 295 (280-300); Phosphorous 3.8 mg/dL (2.7-4.5); Potassium 3.8 mEq/L (3.5-5.1); Sodium 143 mEq/L (136-145); eGFR For African Americans > 60 (> 60); eGFR For Non-African Americans > 60 (> 60)
[2021-08-05] MEDS: OLANZapine 5 MG TAB.RAPDIS PO SCH (09:10)
[2021-08-05] MEDS: Piperacillin/Tazobactam 3.375 GM in 0.9 % Sodium Chloride Mini Bag 100 ML IVPB SCH (09:11)
[2021-08-05] MEDS: Ascorbic Acid 500 MG TABLET PO SCH (09:11)
[2021-08-05] MEDS: Norepinephrine 4 MG/254 ML IV.SOLN IVC SCH (09:34)
[2021-08-05 11:05] LABS: Lymphocytes # 1.5 K/mcL (0.6-4.6); Monocytes # 0.2 K/mcL (0.0-1.3); Neutrophils # 5.8 K/mcL (1.6-8.9)
[2021-08-05 11:06] LABS: Platelet Clumps Few (Not Present); Platelet Estimate Normal (Normal); Poikilocytosis 1+ (Not Present)
[2021-08-05] MEDS: Remdesivir 100 MG in 0.9 % Sodium Chloride 100 ML IVPB SCH (16:43)
[2021-08-05] MEDS: Divalproex (12 HR) 500 MG TABLET PO SCH (20:08)
[2021-08-05] MEDS: rOPINIRole 1 MG TABLET PO SCH (20:08)
[2021-08-06 02:32] LABS: Basophils % 0.1 %; Hematocrit 26.1 % (35.3-44.9); Hemoglobin 8.2 g/dL (11.5-15.4); Immature Granulocytes % 0.9 % (0-4); Lymphocytes # 1.1 K/mcL (0.6-4.6); Lymphocytes % 16.3 %; Mean Corpuscular HGB Conc 31.4 g/dL (31.6-35.5); Mean Corpuscular Volume 108.3 fL (83.0-100.0); Mean Platelet Volume 10.6 fL (9.4-12.4); Monocytes # 0.5 K/mcL (0.0-1.3); Neutrophils # 5.3 K/mcL (1.6-8.9); Platelet Count 293 K/mcL (140-400); Red Blood Count 2.41 M/mcL (3.82-4.97); Red Cell Distribution Width 13.5 % (11.5-14.5); Segmented Neutrophils % 75.7 %
[2021-08-06 02:54] LABS: Albumin 2.9 g/dL (3.5-5.7); Albumin/Globulin Ratio 1.5 (1.1-2.2); Bilirubin,Indirect 0.2 mg/dL (0.0-1.0); Bilirubin,Total 0.2 mg/dL (0.3-1.0); Total Protein 4.9 g/dL (6.4-8.9)
[2021-08-06 02:56] LABS: BUN/Creatinine Ratio 19 (6-26); Blood Urea Nitrogen 12 mg/dL (8-23); Calcium 9.2 mg/dL (8.6-10.3); Carbon Dioxide 37 mEq/L (23-29); Chloride 102 mEq/L (98-107); Glucose 104 mg/dL (70-105); Magnesium 1.5 mg/dL (1.6-2.6); Osmolality,Calculated 292 (280-300); Phosphorous 3.3 mg/dL (2.7-4.5); Potassium 3.5 mEq/L (3.5-5.1); Sodium 141 mEq/L (136-145); eGFR For African Americans > 60 (> 60); eGFR For Non-African Americans > 60 (> 60)
[2021-08-06] MEDS: *HR* Enoxaparin 40 MG/0.4 ML SYRINGE SQ SCH (05:46)
[2021-08-06] MEDS: Budesonide/Formoterol 160/4.5 1 PUFF INH IH SCH ×2 (08:05→20:53)
[2021-08-06] MEDS: diazePAM 5 MG TABLET PO SCH ×2 (08:20→20:33)
[2021-08-06] MEDS: Dexamethasone Sodium Phos/PF 10 MG/ML VIAL IVP SCH (08:20)
[2021-08-06] MEDS: OLANZapine 5 MG TAB.RAPDIS PO SCH (08:20)
[2021-08-06] MEDS: Ascorbic Acid 500 MG TABLET PO SCH (08:20)
[2021-08-06] MEDS: Insulin LISPRO 300 UNITS/3 ML VIAL SUBQ SCH ×4 (08:21→20:33)
[2021-08-06 08:24] LABS: ABG Base Excess 11 mEq/L (-2 to 3); ABG HCO3 38 mEq/L (21-27); ABG Oxygen Saturation 84 % (95-98); ABG PCO2 62 mmHg (35-45); ABG PH 7.39 pH Units (7.32-7.45); ABG PO2 52 mmHg (85-104); ABG TCO2 40 mEq/L (20-26)
[2021-08-06] MEDS: levoFLOXacin 750 MG/150 ML 750 MG/150 ML BAG IVPB SCH (09:55)
[2021-08-06] MEDS: Remdesivir 100 MG in 0.9 % Sodium Chloride 100 ML IVPB SCH (17:50)
[2021-08-06] MEDS: Divalproex (12 HR) 500 MG TABLET PO SCH (20:33)
[2021-08-06] MEDS: Melatonin 3 MG TABLET PO PRN (20:33)
[2021-08-06] MEDS: rOPINIRole 1 MG TABLET PO SCH (20:33)
[2021-08-07 01:25] LABS: Albumin/Globulin Ratio 1.6 (1.1-2.2); Bilirubin,Direct 0.1 mg/dL (0.0-0.2); Bilirubin,Indirect 0.1 mg/dL (0.0-1.0); Bilirubin,Total 0.2 mg/dL (0.3-1.0); Globulin 1.9 g/dL (2.4-3.5); Magnesium 1.6 mg/dL (1.6-2.6); Total Protein 4.9 g/dL (6.4-8.9)
[2021-08-07] MEDS: *HR* Enoxaparin 40 MG/0.4 ML SYRINGE SQ SCH (04:22)
[2021-08-07] MEDS: Insulin LISPRO 300 UNITS/3 ML VIAL SUBQ SCH ×4 (08:46→19:59)
[2021-08-07] MEDS: diazePAM 2 MG TABLET PO SCH ×2 (08:51→12:53)
[2021-08-07] MEDS: levoFLOXacin 750 MG TABLET PO SCH (08:51)
[2021-08-07] MEDS: Ascorbic Acid 500 MG TABLET PO SCH (08:51)
[2021-08-07] MEDS: Dexamethasone Sodium Phos/PF 10 MG/ML VIAL IVP SCH (08:51)
[2021-08-07] MEDS: OLANZapine 5 MG TAB.RAPDIS PO SCH (08:52)
[2021-08-07] MEDS: Budesonide/Formoterol 160/4.5 1 PUFF INH IH SCH ×2 (10:18→20:52)
[2021-08-07] MEDS: Remdesivir 100 MG in 0.9 % Sodium Chloride 100 ML IVPB SCH (16:13)
[2021-08-07] MEDS: rOPINIRole 1 MG TABLET PO SCH (21:15)
[2021-08-07] MEDS: diazePAM 5 MG TABLET PO SCH (21:16)
[2021-08-07] MEDS: Divalproex (12 HR) 500 MG TABLET PO SCH (21:16)
[2021-08-07] MEDS: Melatonin 3 MG TABLET PO PRN (21:16)
[2021-08-08] MEDS: *HR* Enoxaparin 40 MG/0.4 ML SYRINGE SQ SCH (06:16)
[2021-08-08] MEDS: Budesonide/Formoterol 160/4.5 1 PUFF INH IH SCH ×2 (08:06→20:58)
[2021-08-08] MEDS: Insulin LISPRO 300 UNITS/3 ML VIAL SUBQ SCH ×4 (09:36→20:34)
[2021-08-08] MEDS: OLANZapine 5 MG TAB.RAPDIS PO SCH (09:37)
[2021-08-08] MEDS: Dexamethasone Sodium Phos/PF 10 MG/ML VIAL IVP SCH (09:37)
[2021-08-08] MEDS: levoFLOXacin 750 MG TABLET PO SCH (09:37)
[2021-08-08] MEDS: diazePAM 2 MG TABLET PO SCH ×2 (09:51→12:57)
[2021-08-08] MEDS: Ascorbic Acid 500 MG TABLET PO SCH (10:20)
[2021-08-08 15:08] LABS: Basophils % 0.4 %; Eosinophils % 0.1 %; Hematocrit 32.1 % (35.3-44.9); Hemoglobin 10.3 g/dL (11.5-15.4); Immature Granulocytes % 1.5 % (0-4); Lymphocytes # 0.5 K/mcL (0.6-4.6); Lymphocytes % 5.7 %; Mean Corpuscular HGB Conc 32.1 g/dL (31.6-35.5); Mean Corpuscular Hemoglobin 33.1 pg (28.0-33.3); Mean Corpuscular Volume 103.2 fL (83.0-100.0); Mean Platelet Volume 9.9 fL (9.4-12.4); Monocytes # 0.2 K/mcL (0.0-1.3); Monocytes % 2.4 %; Neutrophils # 8.5 K/mcL (1.6-8.9); Platelet Count 340 K/mcL (140-400); Red Blood Count 3.11 M/mcL (3.82-4.97); Red Cell Distribution Width 13.5 % (11.5-14.5); Segmented Neutrophils % 89.9 %
[2021-08-08 15:10] LABS: White Blood Count 9.5 K/mcL (4.3-11.1)
[2021-08-08 15:31] LABS: Alanine Aminotransferase 9 Units/L (7-52); Albumin 3.4 g/dL (3.5-5.7); Albumin/Globulin Ratio 1.4 (1.1-2.2); Alkaline Phosphatase 39 Units/L (34-104); Aspartate Amino Transferase 13 Units/L (13-39); BUN/Creatinine Ratio 15 (6-26); Bilirubin,Direct 0.1 mg/dL (0.0-0.2); Bilirubin,Indirect 0.1 mg/dL (0.0-1.0); Bilirubin,Total 0.2 mg/dL (0.3-1.0); Blood Urea Nitrogen 9 mg/dL (8-23); Carbon Dioxide 40 mEq/L (23-29); Chloride 94 mEq/L (98-107); Globulin 2.4 g/dL (2.4-3.5); Glucose 274 mg/dL (70-105); Magnesium 1.3 mg/dL (1.6-2.6); Osmolality,Calculated 296 (280-300); Phosphorous 3.3 mg/dL (2.7-4.5); Potassium 3.6 mEq/L (3.5-5.1); Sodium 139 mEq/L (136-145); Total Protein 5.8 g/dL (6.4-8.9); eGFR For African Americans > 60 (> 60); eGFR For Non-African Americans > 60 (> 60)
[2021-08-08] MEDS: Remdesivir 100 MG in 0.9 % Sodium Chloride 100 ML IVPB SCH (17:06)
[2021-08-08] MEDS: rOPINIRole 1 MG TABLET PO SCH (20:34)
[2021-08-08] MEDS: diazePAM 5 MG TABLET PO SCH (20:34)
[2021-08-08] MEDS: Divalproex (12 HR) 500 MG TABLET PO SCH (20:34)
[2021-08-08] MEDS: Melatonin 3 MG TABLET PO PRN (22:53)
[2021-08-09] MEDS: *HR* Enoxaparin 40 MG/0.4 ML SYRINGE SQ SCH (05:08)
[2021-08-09] MEDS: Insulin LISPRO 300 UNITS/3 ML VIAL SUBQ SCH ×4 (08:23→21:28)
[2021-08-09] MEDS: dexAMETHasone 4 MG TABLET PO SCH (09:10)
[2021-08-09] MEDS: Ascorbic Acid 500 MG TABLET PO SCH (09:10)
[2021-08-09] MEDS: diazePAM 2 MG TABLET PO SCH ×2 (09:10→12:53)
[2021-08-09] MEDS: OLANZapine 5 MG TAB.RAPDIS PO SCH (09:11)
[2021-08-09] MEDS: levoFLOXacin 750 MG TABLET PO SCH (09:11)
[2021-08-09] MEDS: Budesonide/Formoterol 160/4.5 1 PUFF INH IH SCH ×2 (09:55→20:09)
[2021-08-09] MEDS: rOPINIRole 1 MG TABLET PO SCH (21:26)
[2021-08-09] MEDS: Melatonin 3 MG TABLET PO PRN (21:27)
[2021-08-09] MEDS: diazePAM 5 MG TABLET PO SCH (21:27)
[2021-08-09] MEDS: Divalproex (12 HR) 500 MG TABLET PO SCH (21:27)
[2021-08-09] MEDS: Insulin DETEMIR 100 UNIT/ML X5UNITS SUBQ SCH (21:27)
[2021-08-10 05:51] LABS: Hematocrit 30.5 % (35.3-44.9); Hemoglobin 9.7 g/dL (11.5-15.4)
[2021-08-10] MEDS: *HR* Enoxaparin 40 MG/0.4 ML SYRINGE SQ SCH (06:12)
[2021-08-10 06:24] LABS: BUN/Creatinine Ratio 20 (6-26); Blood Urea Nitrogen 12 mg/dL (8-23); Calcium 9.2 mg/dL (8.6-10.3); Carbon Dioxide 43 mEq/L (23-29); Chloride 95 mEq/L (98-107); Glucose 118 mg/dL (70-105); Magnesium 1.4 mg/dL (1.6-2.6); Osmolality,Calculated 299 (280-300); Phosphorous 4.3 mg/dL (2.7-4.5); Potassium 3.1 mEq/L (3.5-5.1); Sodium 144 mEq/L (136-145); eGFR For African Americans > 60 (> 60); eGFR For Non-African Americans > 60 (> 60)
[2021-08-10] MEDS: Insulin LISPRO 300 UNITS/3 ML VIAL SUBQ SCH ×4 (09:55→22:34)
[2021-08-10] MEDS: OLANZapine 5 MG TAB.RAPDIS PO SCH (09:56)
[2021-08-10] MEDS: diazePAM 2 MG TABLET PO SCH ×2 (09:56→13:28)
[2021-08-10] MEDS: dexAMETHasone 4 MG TABLET PO SCH (09:56)
[2021-08-10] MEDS: levoFLOXacin 750 MG TABLET PO SCH (09:56)
[2021-08-10] MEDS: Ascorbic Acid 500 MG TABLET PO SCH (09:57)
[2021-08-10] MEDS: Insulin DETEMIR 100 UNIT/ML X5UNITS SUBQ SCH ×2 (10:05→22:33)
[2021-08-10] MEDS: Budesonide/Formoterol 160/4.5 1 PUFF INH IH SCH ×2 (10:10→19:26)
[2021-08-10] MEDS: diazePAM 5 MG TABLET PO SCH (22:33)
[2021-08-10] MEDS: rOPINIRole 1 MG TABLET PO SCH (22:33)
[2021-08-10] MEDS: Divalproex (12 HR) 500 MG TABLET PO SCH (22:33)
[2021-08-11 01:31] LABS: BUN/Creatinine Ratio 14 (6-26); Blood Urea Nitrogen 11 mg/dL (8-23); Calcium 8.8 mg/dL (8.6-10.3); Carbon Dioxide 37 mEq/L (23-29); Chloride 97 mEq/L (98-107); Glucose 190 mg/dL (70-105); Magnesium 1.7 mg/dL (1.6-2.6); Osmolality,Calculated 294 (280-300); Phosphorous 4.1 mg/dL (2.7-4.5); Potassium 3.4 mEq/L (3.5-5.1); Sodium 140 mEq/L (136-145); eGFR For African Americans > 60 (> 60); eGFR For Non-African Americans > 60 (> 60)
[2021-08-11] MEDS: *HR* Enoxaparin 40 MG/0.4 ML SYRINGE SQ SCH (05:03)
[2021-08-11] MEDS: Insulin LISPRO 300 UNITS/3 ML VIAL SUBQ SCH ×4 (07:43→20:40)
[2021-08-11] MEDS: OLANZapine 5 MG TAB.RAPDIS PO SCH (09:35)
[2021-08-11] MEDS: diazePAM 2 MG TABLET PO SCH ×2 (09:35→13:03)
[2021-08-11] MEDS: Insulin DETEMIR 100 UNIT/ML X5UNITS SUBQ SCH ×2 (09:37→20:51)
[2021-08-11] MEDS: Ascorbic Acid 500 MG TABLET PO SCH (09:38)
[2021-08-11] MEDS: Budesonide/Formoterol 160/4.5 1 PUFF INH IH SCH ×2 (10:46→21:09)
[2021-08-11] MEDS ORDERED: D5% in Water 1,000 ML IVC PRN (10:59)
[2021-08-11] MEDS ORDERED: *HR* Dextrose 50 % in Water (Syg) 50 ML SYRINGE IVP PRN (10:59)
[2021-08-11] MEDS ORDERED: Dextrose Gel 15 GM/37.5 ML TUBE PO PRN ×2 (10:59)
[2021-08-11] MEDS: diazePAM 5 MG TABLET PO SCH (20:39)
[2021-08-11] MEDS: Divalproex (12 HR) 500 MG TABLET PO SCH (20:39)
[2021-08-11] MEDS: rOPINIRole 1 MG TABLET PO SCH (20:39)
[2021-08-11] MEDS: Melatonin 3 MG TABLET PO PRN (22:49)
[2021-08-12] MEDS: *HR* Enoxaparin 40 MG/0.4 ML SYRINGE SQ SCH (04:24)
[2021-08-12] MEDS: Budesonide/Formoterol 160/4.5 1 PUFF INH IH SCH ×2 (07:48→20:50)
[2021-08-12] MEDS: diazePAM 2 MG TABLET PO SCH ×2 (09:16→12:14)
[2021-08-12] MEDS: OLANZapine 5 MG TAB.RAPDIS PO SCH (09:17)
[2021-08-12] MEDS: Ascorbic Acid 500 MG TABLET PO SCH (09:17)
[2021-08-12] MEDS: Insulin LISPRO 300 UNITS/3 ML VIAL SUBQ SCH ×2 (09:29→12:13)
[2021-08-12] MEDS: Insulin DETEMIR 100 UNIT/ML X5UNITS SUBQ SCH (09:30)
[2021-08-12] MEDS: rOPINIRole 1 MG TABLET PO SCH (21:12)
[2021-08-12] MEDS: diazePAM 5 MG TABLET PO SCH (21:12)
[2021-08-12] MEDS: Divalproex (12 HR) 500 MG TABLET PO SCH (21:12)
[2021-08-13 01:58] LABS: Hematocrit 29.9 % (35.3-44.9); Hemoglobin 9.2 g/dL (11.5-15.4); Mean Corpuscular HGB Conc 30.8 g/dL (31.6-35.5); Mean Corpuscular Hemoglobin 32.3 pg (28.0-33.3); Mean Corpuscular Volume 104.9 fL (83.0-100.0); Mean Platelet Volume 10.1 fL (9.4-12.4); Platelet Count 197 K/mcL (140-400); Red Blood Count 2.85 M/mcL (3.82-4.97); Red Cell Distribution Width 13.7 % (11.5-14.5); White Blood Count 5.4 K/mcL (4.3-11.1)
[2021-08-13 02:20] LABS: BUN/Creatinine Ratio 20 (6-26); Blood Urea Nitrogen 13 mg/dL (8-23); Calcium 8.5 mg/dL (8.6-10.3); Carbon Dioxide 39 mEq/L (23-29); Chloride 98 mEq/L (98-107); Glucose 158 mg/dL (70-105); Osmolality,Calculated 289 (280-300); Potassium 4.5 mEq/L (3.5-5.1); Sodium 138 mEq/L (136-145); eGFR For African Americans > 60 (> 60); eGFR For Non-African Americans > 60 (> 60)
[2021-08-13] MEDS: *HR* Enoxaparin 40 MG/0.4 ML SYRINGE SQ SCH (05:22)
[2021-08-13] MEDS: Ascorbic Acid 500 MG TABLET PO SCH (09:14)
[2021-08-13] MEDS: diazePAM 2 MG TABLET PO SCH ×2 (09:16→11:53)
[2021-08-13] MEDS: OLANZapine 5 MG TAB.RAPDIS PO SCH (09:17)
[2021-08-13] MEDS: Budesonide/Formoterol 160/4.5 1 PUFF INH IH SCH (11:28)
[2021-08-13 11:39] VITALS: BP 96/61; PULSE 69; TEMP 98.5; O2SAT 98
== END 2021-08-13 14:54 | DRG 871 ==
LOC: 2NNU → SUATTDRO 06:47 → ICNU 08-04 04:22 → 2ANU 08-05 12:03
PROVIDERS: ADMIT Internal Medicine; ATTEND Internal Medicine

== ENCOUNTER 2022-02-12 15:38 | Inpatient (IN) ==
[2022-02-13] MEDS ORDERED: Acetaminophen 325 MG TABLET PO PRN (01:29)
[2022-02-13] MEDS ORDERED: Naloxone 0.4 MG/ML INJ IVP PRN (01:29)
[2022-02-13] MEDS ORDERED: *HR* Dextrose 50 % in Water (Syg) 50 ML SYRINGE IVP PRN (02:14)
[2022-02-13] MEDS ORDERED: Dextrose Gel 15 GM/37.5 ML TUBE PO PRN ×2 (02:14)
[2022-02-13] MEDS ORDERED: D5% in Water 1,000 ML IVC PRN (02:14)
[2022-02-13] MEDS: Insulin LISPRO 300 UNITS/3 ML VIAL SUBQ SCH ×5 (02:35→20:26)
[2022-02-13 03:26] LABS: BUN/Creatinine Ratio 47 (6-26); Blood Urea Nitrogen 44 mg/dL (8-23); Calcium 10.3 mg/dL (8.6-10.3); Carbon Dioxide 35 mEq/L (23-29); Chloride 84 mEq/L (98-107); Glucose 307 mg/dL (70-105); Osmolality,Calculated 297 (280-300); Potassium 4.1 mEq/L (3.5-5.1); Sodium 132 mEq/L (136-145); eGFR For African Americans > 60 (> 60); eGFR For Non-African Americans > 60 (> 60)
[2022-02-13 03:31] LABS: Hematocrit 31.9 % (35.3-44.9); Hemoglobin 10.5 g/dL (11.5-15.4); Mean Corpuscular HGB Conc 32.9 g/dL (31.6-35.5); Mean Corpuscular Hemoglobin 33.8 pg (28.0-33.3); Mean Corpuscular Volume 102.6 fL (83.0-100.0); Mean Platelet Volume 9.9 fL (9.4-12.4); Platelet Count 356 K/mcL (140-400); Red Blood Count 3.11 M/mcL (3.82-4.97); Red Cell Distribution Width 13.7 % (11.5-14.5); White Blood Count 13.8 K/mcL (4.3-11.1)
[2022-02-13] MEDS: Ipratropium/Albuterol Neb 3 ML IH SCH ×6 (03:52→23:21)
[2022-02-13] MEDS: *HR* Enoxaparin 40 MG/0.4 ML SYRINGE SQ SCH (05:56)
[2022-02-13] MEDS: Budesonide/Formoterol 160/4.5 1 PUFF INH IH SCH ×2 (08:07→19:59)
[2022-02-13 08:54] LABS: VBG HCO3 38 mEq/L (21-27); VBG PCO2 58 mmHg (41-51); VBG PH 7.43 pH Units (7.32-7.42); VBG PO2 118 mmHg (25-50)
[2022-02-13] MEDS: Azithromycin 250 MG TABLET PO SCH (10:56)
[2022-02-13] MEDS: predniSONE 20 MG TABLET PO SCH (10:56)
[2022-02-13] MEDS: diazePAM 5 MG TABLET PO SCH ×2 (14:24→20:49)
[2022-02-13] MEDS: rOPINIRole 1 MG TABLET PO SCH (20:49)
[2022-02-13] MEDS: Divalproex (12 HR) 500 MG TABLET PO SCH (20:49)
[2022-02-13] MEDS: Gabapentin 400 MG CAPSULE PO SCH (20:49)
[2022-02-13] MEDS ORDERED: Budesonide/Formoterol 160/4.5 1 PUFF INH IH SCH (22:00)
[2022-02-14] MEDS: Ipratropium/Albuterol Neb 3 ML IH SCH ×6 (04:54→23:44)
[2022-02-14 05:59] LABS: ABG Base Excess 12 mEq/L (-2 to 3); ABG HCO3 38 mEq/L (21-27); ABG Oxygen Saturation 95 % (95-98); ABG PCO2 57 mmHg (35-45); ABG PH 7.43 pH Units (7.32-7.45); ABG PO2 77 mmHg (85-104); ABG TCO2 40 mEq/L (20-26)
[2022-02-14] MEDS: *HR* Enoxaparin 40 MG/0.4 ML SYRINGE SQ SCH (06:23)
[2022-02-14] MEDS: Budesonide/Formoterol 160/4.5 1 PUFF INH IH SCH ×2 (07:41→22:01)
[2022-02-14] MEDS: Insulin LISPRO 300 UNITS/3 ML VIAL SUBQ SCH ×4 (08:10→20:50)
[2022-02-14] MEDS: Gabapentin 300 MG CAPSULE PO SCH (08:11)
[2022-02-14] MEDS: predniSONE 20 MG TABLET PO SCH (08:11)
[2022-02-14] MEDS: diazePAM 5 MG TABLET PO SCH ×3 (08:11→20:09)
[2022-02-14] MEDS: Azithromycin 250 MG TABLET PO SCH (08:11)
[2022-02-14] MEDS: rOPINIRole 1 MG TABLET PO SCH (20:07)
[2022-02-14] MEDS: Divalproex (12 HR) 500 MG TABLET PO SCH (20:08)
[2022-02-14] MEDS: Gabapentin 400 MG CAPSULE PO SCH (20:08)
[2022-02-14] MEDS ORDERED: Prochlorperazine 10 MG/2 ML VIAL IVP ONE (22:14)
[2022-02-15] MEDS: Ipratropium/Albuterol Neb 3 ML IH SCH ×3 (03:55→11:14)
[2022-02-15] MEDS: *HR* Enoxaparin 40 MG/0.4 ML SYRINGE SQ SCH (04:40)
[2022-02-15] MEDS: Budesonide/Formoterol 160/4.5 1 PUFF INH IH SCH (07:23)
[2022-02-15] MEDS: Insulin LISPRO 300 UNITS/3 ML VIAL SUBQ SCH ×2 (09:00→11:53)
[2022-02-15] MEDS: Gabapentin 300 MG CAPSULE PO SCH (09:03)
[2022-02-15] MEDS: Azithromycin 250 MG TABLET PO SCH (09:03)
[2022-02-15] MEDS: diazePAM 5 MG TABLET PO SCH (09:03)
[2022-02-15] MEDS: predniSONE 20 MG TABLET PO SCH (09:03)
[2022-02-15 14:35] VITALS: BP 131/87; PULSE 88; TEMP 97.6; O2SAT 97
== END 2022-02-15 14:57 | disposition home or self-care (01) | DRG 190 ==
LOC: 3ANU → SUATTDRO 02-13 00:34
PROVIDERS: ADMIT Family Medicine; ATTEND Internal Medicine